=== PATIENT | female | born 1985 | race Caucasian/White ===

== ENCOUNTER 2019-08-21 08:38 | Emergency (ER) | payer OTHER, SELFPAY ==
[2019-08-21 08:46] VITALS: BP 157/91; PULSE 100; RESP 18; TEMP 36.8; O2SAT 98; BMI 32.8
--- NOTE | 2019-08-21 08:57 | ED_ITS ---
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; she has been wearing a wrist splint to help; complains of intermittent tingling to her hand; no fever/chills MD elicited complaint: cough Onset (ago): day(s) Timing: constant Severity: mild Associated symptoms: Reports no associated symptoms; Deny abdominal pain, chest pain, fever(s), lightheadedness, nausea, palpitations, syncope or vomiting Review of Systems Const: Denies: fever or chills Eyes: Denies: change in vision or blurry vision ENMT: Reports: nasal congestion; Denies: ear discharge Card: Denies: chest pain, palpitations, irregular heart rhythm, lightheadedness, syncope or shortness of breath on exertion Resp: Reports: productive cough; Denies: shortness of breath or pain on inspiration GI: Denies: abdominal pain, nausea, vomiting, heartburn/indigestion or diarrhea : Denies: painful urination Musc: Reports: joint pain (R wrist); Denies: neck pain or back pain Skin/Breast: Denies: rash PFSH ED PFSH: Statuses (acute, chronic, etc) shown below reflect problem list status as previously entered and may not be historically accurate Social History Smoking and tobacco status: never smoked Physical Exam Const: COMMON NORMALS: no apparent distress, oriented x3 and alert GENERAL APPEARANCE: cooperative HENMT: COMMON NORMALS: normocephalic, head/scalp atraumatic, external ears normal, EAC's normal and TM's normal bilaterally HEAD & SCALP: normal to inspection, normocephalic and atraumatic FACE & SINUS: normal facial exam NOSE: nasal discharge EXTERNAL EAR: Yes external ears normal EXTERNAL AUDITORY CANAL: EAC's normal TYMPANIC MEMBRANE: TM's normal bilaterally MOUTH: oral and palatal mucosa normal THROAT: posterior oropharynx normal, tonsils normal and uvula midline Eye: COMMON NORMALS: PERRL and EOMs intact bilaterally PUPIL: Yes PERRL Neck/C-Spine: COMMON NORMALS: full ROM, no lymphadenopathy, supple and no meningeal signs Resp: COMMON NORMALS: normal respiratory effort, no retractions, no use of accessory muscles and clear to auscultation bilaterally AUSCULTATION: clear to auscultation bilaterally Cardio: COMMON NORMALS: regular rate and regular rhythm RATE: regular rate RHYTHM: regular rhythm GI: COMMON NORMALS: normal to inspection, nondistended, normoactive bowel sounds, soft to palpation, non-tender, no hepatosplenomegaly and no masses PALPATION: Yes soft and Yes no hepatosplenomegaly Back/Pelvis: COMMON NORMALS: thoracic and lumbar spine normal to inspection Extremity: RIGHT UPPER EXTREMITY: Yes wrist Right wrist: Yes special tests Right wrist special tests: Tinel's test: Positive and Phalen's test: Positive Neuro: COMMON NORMALS: oriented x3 SENSORIUM/ORIENTATION: Yes alert MENINGEAL SIGNS: Yes no meningeal signs Course Vital Signs: Vital signs: Vital Signs Temperature 98.2 F 08/21/19 08:46 Pulse Rate 88 08/21/19 10:45 Respiratory Rate 16 08/21/19 10:45 Blood Pressure 131/92 08/21/19 10:45 Pulse Oximetry 98 08/21/19 10:45 MDM - SOB/Dyspnea Imaging Data^: CXR: Radiologist's impression: [place] [address] XRay Report Signed Patient: Rimma Mariee MR#: [id number] : 1985 Acct:[id number] Age/Sex: 34 / F ADM Date: 08/21/19 Loc: ER Attending Dr: Ordering Physician: Yissel Whiteside Date of Service: 08/21/19 Procedure(s): XR chest 1V portable [id number] Accession Number(s): [id number] cc: Yissel Whiteside PROCEDURE INFORMATION: Exam: XR Chest, 1 View Exam date and time: 08/21/2019 9:08 AM Age: 34 years old Clinical indication: Patient HX: Cough/congestion TECHNIQUE: Imaging protocol: XR of the chest Views: 1 view. COMPARISON: CR Chest 1 [place] [id number] 07/13/2019 7:55 PM FINDINGS: Lungs: Unremarkable. No consolidation. Pleural space: Unremarkable. No pleural effusion. No pneumothorax. Heart/Mediastinum: Unremarkable. No cardiomegaly. Bones/joints: Unremarkable. XR/XR chest 1V portable [id number] IMPRESSION: No acute findings. Dictated By: Bhavik Guerra MD 08/21/1937 Signed By: Bhavik Guerra MD 08/21/19 0939 R wrist: Radiologist's impression: [address] [place] [address] XRay Report Signed Patient: Rimma Mariee MR#: [id number] : 1985 Acct:[id number] Age/Sex: 34 / F ADM Date: 08/21/19 Loc: ER Attending Dr: Ordering Physician: Yissel Whiteside Date of Service: 08/21/19 Procedure(s): XR wrist RT w scaphoid [id number] Accession Number(s): [id number] cc: Yissel Whiteside PROCEDURE INFORMATION: Exam: XR Right Wrist Exam date and time: 08/21/2019 9:22 AM Age: 34 years old Clinical indication: Pain and injury or trauma; Fall; Initial encounter; Blunt trauma (contusions or hematomas; Wrist; Right; Injury date: 2 weeks ago; Additional info: Fall/pain TECHNIQUE: Imaging protocol: XR Right wrist. Views: 3 or more views. COMPARISON: No relevant prior studies available. FINDINGS: Bones/joints: The radial ulnar joint is normal. Carpus is unremarkable. The metacarpals are normal. Visualized portions of the phalanges are normal. No triquetral fracture. Soft tissues: Normal. XR/XR wrist RT w scaphoid [id number] IMPRESSION: Normal wrist. Dictated By: Bhavik Guerra MD 08/21/19 0938 Signed By: Bhavik Guerra MD 08/21/19 0939 Discharge Plan Discharge Patient Disposition: Home, Self-Care Clinical Impression: Acute bronchitis, viral, Carpal tunnel syndrome of right wrist Condition: Stable Prescriptions: No Action trazodone 100 mg Tablet 100 mg PO BEDTIME PRN (Reason: Insomnia) RF: 0 ibuprofen 200 mg Tablet 800 mg PO BID PRN (Reason: Pain) RF: 0 G Tussin AC 10 ml PO BEDTIME RF: 0 Discharge Orders: Discharge Order (Routine); Ordered 08/21/19 Ordered By: Yissel Whiteside Referrals: [facility] [Other] Discharge Diet: Usual diet Discharge Activity: Increase activity as tolerated Activity Restrictions/Additional Instructions: Follow up with primary care in a week for continued symptoms. Continue to wear wrist brace as much as possible as well as the wrist rest for your keyboard. Discharge Date/Time: 08/21/19 10:54 Coding Level of Care Code ED Mental Health Aides Teacher for Tessa Gill
--- NOTE | 2019-08-21 09:07 | XRR_ITS ---
PROCEDURE INFORMATION: Exam: XR Right Wrist Exam date and time: 08/21/2019 9:22 AM Age: 34 years old Clinical indication: Pain and injury or trauma; Fall; Initial encounter; Blunt trauma (contusions or hematomas; Wrist; Right; Injury date: 2 weeks ago; Additional info: Fall/pain TECHNIQUE: Imaging protocol: XR Right wrist. Views: 3 or more views. COMPARISON: No relevant prior studies available. FINDINGS: Bones/joints: The radial ulnar joint is normal. Carpus is unremarkable. The metacarpals are normal. Visualized portions of the phalanges are normal. No triquetral fracture. Soft tissues: Normal. XR/XR wrist RT w scaphoid [id number] IMPRESSION: Normal wrist.
--- NOTE | 2019-08-21 09:07 | XRR_ITS ---
PROCEDURE INFORMATION: Exam: XR Chest, 1 View Exam date and time: 08/21/2019 9:08 AM Age: 34 years old Clinical indication: Patient HX: Cough/congestion TECHNIQUE: Imaging protocol: XR of the chest Views: 1 view. COMPARISON: CR Chest 1 [place] [id number] 07/13/2019 7:55 PM FINDINGS: Lungs: Unremarkable. No consolidation. Pleural space: Unremarkable. No pleural effusion. No pneumothorax. Heart/Mediastinum: Unremarkable. No cardiomegaly. Bones/joints: Unremarkable. XR/XR chest 1V portable [id number] IMPRESSION: No acute findings.
--- NOTE | 2019-08-21 09:12 | PC.NURSE ---
Patient to treatment room at 08:55
--- NOTE | 2019-08-21 10:01 | PC.NURSE ---
Right wrist pain. Patient arrived with velcro wrist splint. Would like it reevaluated
--- NOTE | 2019-08-21 10:13 | PC.NURSE ---
Patient resting in bed with family at bedside. Patient has already left the department for imaging and returned. No needs at this time. Waiting for results at this time. Patient updated.
[2019-08-21 10:45] VITALS: BP 131/92; PULSE 88; RESP 16; O2SAT 98
== END 2019-08-21 10:54 | disposition home or self-care (01) ==
PROVIDERS: Emergency Provider Physician Assistant
DX: J20.8 Acute bronchitis due to other specified organisms (principal); G56.01 Carpal tunnel syndrome, right upper limb
CPT/HCPCS: 71045; 73110; 99281; 99283

== ENCOUNTER 2019-09-07 06:55 | Emergency (ER) | payer OTHER, SELFPAY ==
[2019-09-07 07:06] VITALS: BMI 35.4
--- NOTE | 2019-09-07 07:09 | ED_ITS ---
HPI - Extremity Problem General: Chief complaint: Extremity Problem,Nontraumatic Stated complaint: Left hip pain Time Seen by Provider: 09/07/19 07:07 Source: patient Mode of arrival: ambulatory Limitations: no limitations History of Present Illness: HPI Narrative: Patient comes in today for complaints of left hip pain. Patient appears well. Patient appears in moderate pain. Patient denies any fever or chills. Patient denies any injury. No obvious deformity is noted. Review of Systems General: Reports: 10 or more systems reviewed and unremarkable except in HPI and below Musc: Reports: joint pain (left hip pain) PFSH ED PFSH: Statuses (acute, chronic, etc) shown below reflect problem list status as previously entered and may not be historically accurate Medical History (Updated 09/07/19 @ 07:25 by BEBETO Park) Obesity (Acute) Family History (Updated 09/06/19 @ 16:24 by Maru Gan LPN) Sister Breast cancer Grandmother Breast cancer paternal Colon cancer maternal Thyroid disease maternal Heart disease paternal Hypercholesteremia paternal Mother Colon cancer Father Heart disease Hypercholesteremia Hypertension Grandfather Heart disease paternal Family/Other Hypercholesteremia paternal aunt Social History (Updated 09/01/19 @ 13:50 by Melanie Duke LPN) Smoking and tobacco status: never smoked Alcohol intake: never Lives independently: No Household members: spouse and children Marital status: Current occupational status: employed History of recent travel: No Leisure activites: exercise Current gender identity: Female Physical Exam Const: COMMON NORMALS: no apparent distress and oriented x3 GENERAL APPEARANCE: cooperative HENMT: COMMON NORMALS: normocephalic, external ears normal, EAC's normal, TM's normal bilaterally and external nose normal HEAD & SCALP: normal to inspection and normocephalic FACE & SINUS: normal facial exam NOSE: external nose normal GENERAL EAR: hearing not grossly impaired EXTERNAL EAR: Yes external ears normal EXTERNAL AUDITORY CANAL: EAC's normal TYMPANIC MEMBRANE: TM's normal bilaterally MOUTH: oral and palatal mucosa normal THROAT: posterior oropharynx normal Eye: COMMON NORMALS: PERRL and EOMs intact bilaterally PUPIL: Yes PERRL Neck/C-Spine: COMMON NORMALS: full ROM and no lymphadenopathy Lymph: LYMPHATIC: no lymphedema noted Chest: COMMONS NORMALS: inspection of chest normal and palpation of chest normal Resp: COMMON NORMALS: normal respiratory effort and clear to auscultation bilaterally AUSCULTATION: clear to auscultation bilaterally Cardio: COMMON NORMALS: regular rate and regular rhythm RATE: regular rate RHYTHM: regular rhythm GI: COMMON NORMALS: normal to inspection, nondistended, normoactive bowel sounds and non-tender : COMMON NORMALS: Yes no CVA tenderness BLADDER/KIDNEY EXAM: Yes no CVA t enderness Back/Pelvis: COMMON NORMALS: no CVA tenderness and thoracic and lumbar spine normal to inspection Extremity: COMMON NORMALS: normal to inspection GENERAL: No deformity and No edema LEFT LOWER EXTREMITY: Yes hip joint (tenderness left lateral hip area) Neuro: COMMON NORMALS: oriented x3, moves all extremities and no focal motor deficits Psych: COMMON NORMALS: mental status grossly normal and cooperative Skin: COMMON NORMALS: no rashes or lesions noted GENERAL SKIN EXAM: no rashes or lesions noted Course Vital Signs: Vital signs: Vital Signs Temperature 98.1 F 09/07/19 07:10 Pulse Rate 92 09/07/19 07:10 Respiratory Rate 18 09/07/19 07:10 Blood Pressure 132/74 09/07/19 07:10 Pulse Oximetry 97 09/07/19 07:10 Discharge Plan Discharge Patient Disposition: Home, Self-Care Clinical Impression: Trochanteric bursitis of left hip Condition: Stable Prescriptions: New diclofenac sodium 75 mg tablet,delayed release (DR/EC) 75 mg PO BID Qty: 20 RF: 0 No Action gabapentin 100 mg capsule 100 mg PO BID RF: 0 albuterol sulfate 90 mcg/actuation aerosol powdr breath activated 2 inh INHALATION Q6H PRNRF: 0 Cough syrup with codeine PO RF: 0 doxycycline hyclate 100 mg tablet 100 mg PO BID 7 Days Qty: 14 RF: 0 albuterol sulfate [ProAir HFA] 90 mcg/actuation HFA aerosol inhaler See Rx Instructions INHALATION .COMPLEX PRN (Reason: shortness of breath or wheezing) Qty: 8.5 RF: 0 Discharge Orders: Discharge Order (Routine); Ordered 09/07/19 Ordered By: Nahid Kearney Referrals: [facility] [Other] Abimael Santos, TELEVISION AND RADIO REPAIRER [Primary Care Provider] - Discharge Diet: Usual diet Discharge Activity: Increase activity as tolerated Patient Instructions: Hip Bursitis (ED) Activity Restrictions/Additional Instructions: Activity as tolerated Ice or heat for further pain relief Do not use ibuprofen or naproxen while using diclofenac Drink plenty of water with medications You may use acetaminophen, Tylenlol, for further pain relief Follow-up with primary care in one week as needed Return to ER for high fever or uncontrolled pain Stand Alone Forms: Work/School Release Coding Level of Care Code ED Wood Scaler for Tessa Gill Exam Problem Focused
[2019-09-07 07:10] VITALS: BP 132/74; PULSE 92; RESP 18; TEMP 36.7; O2SAT 97
[2019-09-07] MEDS: ketorolac 30 mg/mL INJ IM (07:59)
== END 2019-09-07 07:50 | disposition home or self-care (01) ==
PROVIDERS: Emergency Provider Nurse Practitioner Family; PCP Registered Nurse
DX: M70.62 Trochanteric bursitis, left hip (principal)
CPT/HCPCS: 96372; 99281; J1885

== ENCOUNTER 2019-09-08 11:19 | Outpatient (CLI) | payer OTHER, SELFPAY ==
--- NOTE | 2019-09-08 11:25 | XR_ITS ---
WS: [id number] RIGHT WRIST: 3 VIEW(S) TECHNIQUE: PA, oblique and lateral. HISTORY: RIGHT WRIST PAIN COMPARISON: 08/21/2019 No acute fracture or dislocation. No joint space abnormality. No soft tissue swelling. XR/XR wrist RT min 3V* [id number] IMPRESSION: Negative RIGHT wrist. No change in appearance of the wrist since 08/21/2019. If patient has persistent and continued pain consider evaluation for an occult fracture by CT.
== END 2019-09-08 11:20 | disposition home or self-care (01) ==
LOC: RAD 11:23
PROVIDERS: PCP Nurse Practitioner Family; Visit Provider Nurse Practitioner Family
DX: M25.531 Pain in right wrist (principal)
CPT/HCPCS: 73110; 82670; 83001

== ENCOUNTER 2019-09-27 09:09 | Outpatient (CLI) | payer OTHER, SELFPAY ==
--- NOTE | 2019-09-27 09:30 | MM_ITS ---
WS: [id number] RIGHT DIGITAL MAMMOGRAPHY WITH CAD CLINICAL INFORMATION: right breast lump COMPARISON: None. TECHNIQUE: 4 views of the right breast were obtained. FINDINGS: Changes of breast reduction surgery. Scattered fibroglandular densities of the right breast. Palpable marker 6 clock position right breast lower inner quadrant. Suggestion of underlying cystic lesion or fat necrosis in this area. Ultrasoun d is pending. In addition there are several fine linear branching calcifications near the palpable marker lower inn er quadrant peripherally. Some of these appear to be in a ductal distribution. Recommend spot Magnifi cation views for further assessment. ULTRASOUND BREAST RIGHT TECHNIQUE: Ultrasound right breast focused area of concern. CLINICAL INFORMATION: right breast lump COMPARISON: None. FINDINGS: Ultrasound right breast at the 6:00 position 4 cm from the nipple in the area of concern. Hypoechoic cystic lesion with some peripheral nodularity along the superior margin of the cyst. This is nonspeci fic and recommend aspiration with ultrasound-guided biopsy considering the nodularity IN ADDITION RECOMMEND SPOT MAGNIFICATION VIEWS OF THE ADJACENT CALCIFICATIONS 6:00 POSITION RIGHT RYLEE AST. MM/[place] [id number] IMPRESSION: BI-RADS: 4A-Suspicious: Low FOLLOW UP: US Guided Biopsy Recommended
--- NOTE | 2019-09-27 10:15 | US_ITS ---
WS: [id number] RIGHT DIGITAL MAMMOGRAPHY WITH CAD CLINICAL INFORMATION: right breast lump COMPARISON: None. TECHNIQUE: 4 views of the right breast were obtained. FINDINGS: Changes of breast reduction surgery. Scattered fibroglandular densities of the right breast. Palpable marker 6 clock position right breast lower inner quadrant. Suggestion of underlying cystic lesion or fat necrosis in this area. Ultrasoun d is pending. In addition there are several fine linear branching calcifications near the palpable marker lower inn er quadrant peripherally. Some of these appear to be in a ductal distribution. Recommend spot Magnifi cation views for further assessment. ULTRASOUND BREAST RIGHT TECHNIQUE: Ultrasound right breast focused area of concern. CLINICAL INFORMATION: right breast lump COMPARISON: None. FINDINGS: Ultrasound right breast at the 6:00 position 4 cm from the nipple in the area of concern. Hypoechoic cystic lesion with some peripheral nodularity along the superior margin of the cyst. This is nonspeci fic and recommend aspiration with ultrasound-guided biopsy considering the nodularity IN ADDITION RECOMMEND SPOT MAGNIFICATION VIEWS OF THE ADJACENT CALCIFICATIONS 6:00 POSITION RIGHT RYLEE AST. US/US breast RT limited* [id number] IMPRESSION: BI-RADS: 4A-Suspicious: Low FOLLOW UP: US Guided Biopsy Recommended
== END 2019-09-27 09:10 | disposition home or self-care (01) ==
LOC: RADSHAW 09:12
PROVIDERS: PCP Nurse Practitioner Family; Visit Provider Obstetrics & Gynecology
DX: N63.10 Unspecified lump in the right breast, unspecified quadrant (principal)
CPT/HCPCS: 76642; 77065

== ENCOUNTER 2019-10-04 08:44 | Outpatient (CLI) | payer OTHER, SELFPAY ==
--- NOTE | 2019-10-04 08:30 | MM_ITS ---
WS: [id number] RIGHT DIGITAL MAMMOGRAPHY WITH CAD CLINICAL INFORMATION: complex cyst right breast HISTORY: Bilateral breast reduction. COMPARISON: September 27, 2019 TECHNIQUE: 5 views of the right breast were obtained. FINDINGS: Scattered fibroglandular densities of the right breast. External markers placed in the area of surgic al scars. Bilateral breast reduction. Linear branching and amorphous calcifications along the surgica l scar site. Considering recent breast reduction these are most likely sequelae of breast reduction w ith evolving fat necrosis and probably benign. Recommend 6 month follow-up for further evaluation. MM/[place] [id number] IMPRESSION: BI-RADS: 3-Probably Benign FOLLOW UP: 6 Month Follow-up
== END 2019-10-04 08:45 | disposition home or self-care (01) ==
LOC: RADSHAW 08:45
PROVIDERS: PCP Nurse Practitioner Family; Visit Provider Obstetrics & Gynecology
DX: N60.01 Solitary cyst of right breast (principal)
CPT/HCPCS: 77065

== ENCOUNTER → 2019-10-05 13:59 | Outpatient (BNVA) | payer OTHER, SELFPAY | PROVIDERS: PCP Nurse Practitioner Family; Visit Provider Nurse Practitioner Psychiatric/Mental Health | DX: F43.12 Post-traumatic stress disorder, chronic (principal); F41.1 Generalized anxiety disorder; F33.1 Major depressive disorder, recurrent, moderate | CPT/HCPCS: 99214 ==

== ENCOUNTER 2019-10-10 12:32 | Outpatient (CLI) | payer OTHER, SELFPAY ==
--- NOTE | 2019-10-10 12:45 | US_ITS ---
WS: [id number] ULTRASOUND-GUIDED RIGHT BREAST ASPIRATION CLINICAL INFORMATION: RT COMPLEX CYST COMPARISON: None. FINDINGS: The procedure including risks, benefits, and complications were discussed with the patient who agreed to proceed. Using sterile technique patient was prepped and draped in the usual sterile fashion. Aft er 1% lidocaine utilizing real-time ultrasound guidance several aspirations are performed of the righ t breast cyst 6:00 position. This significantly decreased in size and nearly resolved. 2-3 cc of thic k gelatinous cystic contents was aspirated and sent for cytology. No immediate complications. Pathology demonstrates benign epithelial cells with proteinaceous debris. No malignant cells. US/[place] [id number] IMPRESSION: 1. Uncomplicated ultrasound-guided right breast cyst aspiration. 2. The pathology demonstrates benign epithelial cells. No evidence of malignan cy. BI-RADS: 2-Benign FOLLOW UP: Age 40
== END 2019-10-10 12:33 | disposition home or self-care (01) ==
LOC: RAD 12:35
PROVIDERS: PCP Nurse Practitioner Family; Visit Provider Obstetrics & Gynecology
DX: N60.01 Solitary cyst of right breast (principal); R92.8 Other abnormal and inconclusive findings on diagnostic imaging of breast
CPT/HCPCS: 19083; 88173; 88305

== ENCOUNTER 2019-10-11 06:35 | Day surgery (SDC) | payer OTHER, SELFPAY ==
[2019-10-03 10:43] VITALS: BMI 36.0
--- NOTE | 2019-10-11 07:38 | ANES.PREANE2 ---
Pre-Anesthetic Assessment Pre-Anesthetic Assessment: Height/Weight: Height 1.6 m Weight 92.351 kg Preop Diagnosis: GERD Proposed Procedure: Operation Date: 10/11/19 08:45 Proposed Procedures p EGD(Not Applicable) - Chalino Harris MD Last Intake: 20:30 Exam: Pre-Anes Outpt Exam: alert, oriented x 3, clear to auscultation bilaterally and regular rate & rhythm Airway: Submandibular: WNL Cervical ROM: WNL MP: 1 Pulmonary: Pulmonary: Asthma GI: GI: GERD Metabolic: Metabolic: Morbid obesity and Thyroid Comments: [place] [facility] [place] Musc/skel: Lower Back Pain Neuropsych: Neuropsych: KISER Anesthetic Plan: ASA status: 3 Anesthesia: MAC PFSH Anesthesia PFSH: Medical History (Updated 10/05/19 @ 17:27 by Yanci Green APRN) Back pain Chronic post-traumatic stress disorder (PTSD) Generalized anxiety disorder GERD (gastroesophageal reflux disease) Knee pain Major depressive disorder, recurrent, moderate Migraines Obesity Surgical History History of cholecystectomy History of hysterectomy (07/21/16) LAVH, bilateral salpingectomy. Diag: Pelvic pain after endometrial ablation. Performed by Dr. James Liriano at [facility] in [place], [place]. History of thyroidectomy, subtotal (11/12/15) Left sided. Performed by Dr. Vale at [facility] in [place], [place] S/P endometrial ablation (11/06/14) Hydrothermal. Diag: Menorrhagia, Dysmenorrhea. Performed by Dr. James Liriano at [facility] in [place], [place] S/P tubal ligation (08/18/11) Performed by Dr. Kapoor at 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
[2019-10-11 07:54] VITALS: BP 155/92; PULSE 99; RESP 20; TEMP 36.4; O2SAT 96
[2019-10-11] MEDS: sodium chloride 0.9% 1,000 ML 30 ML (08:00)
--- NOTE | 2019-10-11 08:32 | W.PM.OPSUD ---
Surgery/Procedure H&P Update DATE OF PROCEDURE: October 11, 2019 DATE H&P PERFORMED: 09/14/19 H&P UPDATE INFORMATION: I have reviewed H&P completed within last 30 days, I have examined patient prior to procedure and No changes to prior documentation PREOP DIAGNOSIS: Acid reflux PRIMARY INDICATION FOR PROCEDURE: The same PLANNED PROCEDURE: Operation Date: 10/11/19 08:45 Proposed Procedures p EGD(Not Applicable) - Chalino Harris MD
[2019-10-11 08:44] VITALS: BP 130/82; PULSE 99; RESP 16; TEMP 36.1; O2SAT 99
--- NOTE | 2019-10-11 08:47 | ANE.PACU2 ---
 Inpatient post-anesthesia follow up: Airway intact: Yes Vital signs: Temperature 97 F Pulse Rate 99 Respiratory Rate 16 Blood Pressure 130/82 Pulse Oximetry 99 Oxygen Delivery Me thod Nasal Cannula Oxygen Flow Rate 3 Fraction of Inspir ed Oxygen Hydration adequate: Yes Nausea and vomiting: Yes (mild nausea noted after procedure) Pain level: 1 Mental status: Baseline
[2019-10-11] MEDS: ondansetron 2 mg/ML SDV 2 mL 4 MG IVP (08:56)
[2019-10-11 08:57] VITALS: BP 118/82; PULSE 87; RESP 18; O2SAT 100
[2019-10-11 09:18] VITALS: BP 119/77; PULSE 91; RESP 18; O2SAT 100
[2019-10-12 06:43] LABS: H. Pylori / CLO Test Negative
== END 2019-10-11 09:18 | disposition home or self-care (01) ==
PROVIDERS: PCP Nurse Practitioner Family; Visit Provider Surgery
PROC: 0DJ08ZZ Inspection of Upper Intestinal Tract, Via Natural or Artificial Opening Endoscopic (ICD-10-PCS; CPT 43235; principal; 2019-10-11 08:45)
DX: K21.9 Gastro-esophageal reflux disease without esophagitis (principal); E66.09 Other obesity due to excess calories; Z68.36 Body mass index [BMI] 36.0-36.9, adult; Z87.11 Personal history of peptic ulcer disease; Z90.49 Acquired absence of other specified parts of digestive tract; Z82.49 Family history of ischemic heart disease and other diseases of the circulatory system; K29.70 Gastritis, unspecified, without bleeding; K29.80 Duodenitis without bleeding; J45.909 Unspecified asthma, uncomplicated
CPT/HCPCS: 12345; 43239; 87077; J2001; J2405; J2704; J7030

== ENCOUNTER → 2019-11-14 08:18 | Outpatient (BNVA) | payer OTHER, SELFPAY | PROVIDERS: PCP Nurse Practitioner Family; Visit Provider Nurse Practitioner Psychiatric/Mental Health | DX: F43.12 Post-traumatic stress disorder, chronic (principal); F41.1 Generalized anxiety disorder; F33.1 Major depressive disorder, recurrent, moderate | CPT/HCPCS: 99213 ==

== ENCOUNTER 2020-01-23 18:22 | Emergency (ER) | payer OTHER, SELFPAY ==
[2020-01-23 18:25] VITALS: BP 150/89; PULSE 103; RESP 18; TEMP 37.1; O2SAT 98; BMI 32.8
[2020-01-23 19:25] LABS: Basophils % 0.4 %; Eosinophils # 0.1 10^3/uL (0.0-0.8); Eosinophils % 0.8 %; Hematocrit 38.1 % (37.0-47.0); Hemoglobin 12.7 g/dL (11.5-15.3); Lymphocytes # 3.5 10^3/uL (0.8-4.8); Lymphocytes % 38.4 %; Mean Corpuscular HGB Conc 33.3 g/dL (30.0-36.0); Mean Corpuscular Hemoglobin 30.7 pg (28.0-34.0); Mean Platelet Volume 8.3 fL (7.4-10.4); Monocytes # 0.6 10^3/uL (0.2-0.9); Monocytes % 6.9 %; Neutrophils # 4.9 10^3/uL (1.8-7.7); Nucleated Red Blood Cells % 0 %; Platelet Count 397 10^3/cmm (130-400); Red Blood Count 4.14 10^6/uL (4.1-5.3); Red Cell Distribution Width 11.9 % (12.1-15.1); White Blood Count 9.2 10^3/uL (4.0-10.0)
[2020-01-23 19:38] LABS: Alanine Aminotransferase 17 U/L (0-33); Albumin Level 4.1 g/dL (3.5-5.2); Alkaline Phosphatase 77 IU/L (35-105); Anion Gap 13.2 (5-19); Aspartate Amino Transferase 18 U/L (0-32); Blood Urea Nitrogen 7 mg/dL (6-20); Calcium 8.6 mg/dL (8.5-10.5); Carbon Dioxide 24 mmol/L (22-29); Chloride 106 mmol/L (98-107); Globulin 2.4 g/dL (1.3-4.6); Glomerular Filtration Rate 95.8 mL/min (90-130); Glucose 92 mg/dL (65-115); Lipase 77 U/L (13-60); Osmolality Calculated 283 mOsm/kg (285-295); Potassium 4.2 mmol/L (3.5-5.1); Sodium 139 mmol/L (136-145); Total Bilirubin 0.2 mg/dL (0.15-1.2); Total Protein 6.5 g/dL (6.6-8.7)
--- NOTE | 2020-01-23 19:40 | CTR_ITS ---
PROCEDURE INFORMATION: Exam: CT Abdomen And Pelvis With Contrast Exam date and time: 01/23/2020 8:12 PM Age: 34 years old Clinical indication: Other: Diarrhea; Abdominal pain; Localized; Lower; Prior surgery; Surgery type: Hysto TECHNIQUE: Imaging protocol: Computed tomography of the abdomen and pelvis with intravenous contrast. Radiation optimization: All CT scans at this facility use at least one of these dose optimization techniques: automated exposure control; mA and/or kV adjustment per patient size (includes targeted exams where dose is matched to clinical indication); or iterative reconstruction. Contrast material: OMNI 300; Contrast volume: 95 ml; Contrast route: IV; COMPARISON: No relevant prior studies available. RADIATION DOSE METRICS: Total DLP: 1440.81 mGy-cm FINDINGS: Lungs: 6 mm noncalcified pulmonary nodule posterior segment right lower lobe. Followup as discussed below. Liver: Normal. No mass. Gallbladder and bile ducts: Surgical clips in the gallbladder fossa consistent with cholecystectomy. Pancreas: Normal. No ductal dilation. Spleen: Normal. No splenomegaly. Adrenals: Normal. No mass. Kidneys and ureters: Multiple left renal simple cysts with the largest measuring > 1.0 cm. Right renal hypodensity measuring < 1.0 cm , too small to further characterize. One or more nonobstructing left renal calyceal stones. Stomach and bowel: Unremarkable. No obstruction. No mucosal thickening. Appendix: Normal appendix. Intraperitoneal space: Unremarkable. No free air. No significant fluid collection. Vasculature: Unremarkable. No abdominal aortic aneurysm. Lymph nodes: Unremarkable. No enlarged lymph nodes. Bladder: Unremarkable as visualized. Reproductive: 2.2 cm right ovarian cyst. Status post hysterectomy. Bones/joints: Unremarkable. No acute fracture. Soft tissues: Metallic jewelry in the region of the umbilicus with or without metallic artifact. CT/CT abdomen pelvis w con* [id number] IMPRESSION: 1. 6 mm noncalcified pulmonary nodule posterior segment right lower lobe. Followup as discussed below. 2. 2.2 cm right ovarian cyst. 3. Status post hysterectomy. If patient does not have known cancer, follow up should be based on clinical information because of the low risk of cancer in this age group. (Jorge et al., Fleischner Society, 2017) COMMENTS: Consistent with the [employer] [employer]'s Incidental Findings Committee white paper (J Am Fernando Radiol 2018): Any incidental renal lesion less than 1.0 cm or classified as too small to characterize, or any incidental cystic renal lesion characterized as simple-appearing, is likely benign. No follow-up imaging is recommended for these lesions per consensus recommendations based on imaging criteria. Radiation Dose CTDIVOL = (mGy): DLP = 1440.81 (mGy-cm)
--- NOTE | 2020-01-23 19:46 | ED_ITS ---
HPI - Abdominal Pain General: Chief Complaint: Abdominal Pain Stated Complaint: abd pain Time Seen by Provider: 01/23/20 19:34 History of Present Illness: HPI narrative: Patient complains about lower abdominal pain last 2 days worsening does have a little bit of urinary frequency denies fever chills nausea or vomiting denies vaginal discharge MD elicited complaint: abdominal pain Pertinent past history: past UTI Onset (ago): day(s) Pain Consistency: constant Location: RLQ and LLQ Severity: moderate Quality: aching Radiation: none Associated Symptoms: Reports no associated symptoms; Denies chills, fever(s), nausea and vomiting Review of Systems Const: Denies: fever(s), chills or body aches Eyes: Denies: change in vision or blurry vision ENMT: Denies: throat pain or nasal congestion Card: Denies: chest pain or dyspnea on exertion Resp: Denies: dyspnea, productive cough or non-productive cough GI: Reports: abdominal pain; Denies: nausea or vomiting Musc: Denies: extremity pain Skin/Breast: Denies: rash Neuro: Denies: headache(s) Psych: Denies: anxiety or depression Denis/Lymph: Denies: easy bruising PFSH ED PFSH: Medical History (Updated 11/14/19 @ 17:10 by Yanci Green APRN) Back pain Chronic post-traumatic stress disorder (PTSD) She reports no problematic nightmares at this time, hypervigilance, avoidance behavior, or intrusive thoughts/flashbacks. Generalized anxiety disorder Chronic overlying anxiety, exacerbated by recent psychosocial stressors and her 's loss of job. GERD (gastroesophageal reflux disease) Knee pain Major depressive disorder, recurrent, moderate Migraines Obesity Surgical History History of cholecystectomy History of hysterectomy (07/21/16) LAVH, bilateral salpingectomy. Diag: Pelvic pain after endometrial ablation. Performed by Dr. James Liriano at [facility] in [place], [place]. History of thyroidectomy, subtotal (11/12/15) Left sided. Performed by Dr. Vale at [facility] in [place], [place] S/P endometrial ablation (11/06/14) Hydrothermal. Diag: Menorrhagia, Dysmenorrhea. Performed by Dr. James Liriano at [facility] in [place], [place] S/P tubal ligation (08/18/11) Performed by Dr. Kapoor at [facility] in [place], [place] Status post breast reduction (~2017) Family History Sister Breast cancer Grandmother Breast cancer paternal Colon cancer maternal Thyroid disease maternal Heart disease paternal Hypercholesteremia paternal Mother Colon cancer Father Heart disease Hypercholesteremia Hypertension Grandfather Heart disease paternal Family/Other Hypercholesteremia paternal aunt Heart disease Paternal aunt Denies family history of Anesthesia complication Bleeding disorder Social History Smoking and tobacco status: never smoked Alcohol intake: current Alcohol intake frequency: holidays/special occasions only Adopted: No Lives independently: No Household members: spouse and children Housing: House Marital status: Highest education level completed: High School Graduate service: No Current occupational status: employed 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[place], [place]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 Current occupational exposures/hazards: No History of recent travel: No Leisure activites: exercise Current gender identity: Female Yamilka/Sikh: Bahai Special yamilka needs: No Agree to transfusion: No Financial difficulty paying for basics: Decline to Answer Physical Exam Const: COMMON NORMALS: no acute distress, average body habitus and patient o riented x3 HENMT: COMMON NORMALS: normocephalic HEAD & SCALP: normal to inspection and normocephalic FACE & SINUS: normal facial exam Eye: COMMON NORMALS: conjunctivae normal GENERAL EYE: appearance normal, both eyes and all related structures CONJUNCTIVA: Yes conjunctivae normal Neck/C-Spine: COMMON NORMALS: no JVD Chest: COMMONS NORMALS: normal inspection of the chest Resp: COMMON NORMALS: normal respiratory effort and clear to auscultation bilaterally AUSCULTATION: clear to auscultation bilaterally Cardio: COMMON NORMALS: no JVD, regular rate and regular rhythm RATE: regular rate RHYTHM: regular rhythm GI: COMMON NORMALS: Normal to inspection, nondistended, normoactive bowel sounds present AUSCULTATION: Yes normoactive bowel sounds PALPATION: Yes Tenderness to palpation present (GI) Details: LLQ and RLQ Extremity: COMMON NORMALS: normal to inspection and full ROM Neuro: COMMON NORMALS: patient oriented x3 Course Vital Signs: Vital signs: Vital Signs Temperature 98.7 F 01/23/20 18:25 Pulse Rate 103 H 01/23/20 18:25 Respiratory Rate 18 01/23/20 18:25 Blood Pressure 150/89 01/23/20 18:25 Pulse Oximetry 98 01/23/20 18:25 MDM - Abdominal Pain Lab Data: Labs: Lab Results 01/23/20 01/23/20 Range/Units 19:10 19:10 WBC 9.2 (4.0-10.0) 10^3/ uL RBC 4.14 (4.1-5.3) 10^6/u L Hgb 12.7 (11.5-15.3) g/dL Hct 38.1 (37.0-47.0) % MCV 92.0 (81-99) fL MCH 30.7 (28.0-34.0) pg MCHC 33.3 (30.0-36.0) g/dL RDW 11.9 L (12.1-15.1) % Plt Count 397 (130-400) 10^3/c mm MPV 8.3 (7.4-10.4) fL Neut % (Auto) 53.0 % Lymph % (Auto) 38.4 % [place] % (Auto) 6.9 % Eos % (Auto) 0.8 % Baso % (Auto) 0.4 % Neut # (Auto) 4.9 (1.8-7.7) 10^3/u L Lymph # (Auto) 3.5 (0.8-4.8) 10^3/u L [place] # (Auto) 0.6 (0.2-0.9) 10^3/u L Eos # (Auto) 0.1 (0.0-0.8) 10^3/u L Baso # (Auto) 0.0 (0.0-0.1) 10^3/u L Nucleated RBC % (a uto) 0 % Nucleated RBCs # 0.0 /100WBC Sodium 139 (136-145) mmol/L Potassium 4.2 (3.5-5.1) mmol/L Chloride 106 (98-107) mmol/L Carbon Dioxide 24 (22-29) mmol/L Anion Gap 13.2 (5-19) BUN 7 (6-20) mg/dL Creatinine 0.7 (0.5-0.9) mg/dL GFR Calculation 95.8 (90-130) mL/min Glucose 92 (65-115) mg/dL Calculated Osmolal ity 283 L (285-295) mOsm/k g Calcium 8.6 (8.5-10.5) mg/dL Total Bilirubin 0.2 (0.15-1.2) mg/dL AST 18 (0-32) U/L ALT 17 (0-33) U/L Alkaline Phosphata se 77 (35-105) IU/L Total Protein 6.5 L (6.6-8.7) g/dL Albumin 4.1 (3.5-5.2) g/dL Globulin 2.4 (1.3-4.6) g/dL Lipase 77 H (13-60) U/L Discharge Plan Discharge Prescriptions: No Action hydroxyzine pamoate 50 mg capsule 50 mg PO BID PRN (Reason: anxiety) Qty: 60 RF: 1 sertraline 100 mg tablet 200 mg PO DAILY Qty: 60 RF: 1 eszopiclone [Lunesta] 1 mg tablet 1 mg PO .qhs PRN (Reason: insomnia) Qty: 30 RF: 0 phentermine 37.5 mg Capsule 37.5 mg PO DAILY RF: 0 Protonix 40 mg tablet,delayed release (DR/EC) 40 mg PO DAILY 30 Days Qty: 30 RF: 2 Coding Level of Care Code ED Equipment Cleaner And Tester for Tessa Gill
[2020-01-23 19:50] LABS: HCG, Serum Qual Negative (Negative)
[2020-01-23] MEDS: iohexol 300 mg/mL 100 mL Btl IV (20:50)
[2020-01-23 20:57] VITALS: BP 148/97; PULSE 99; RESP 18; O2SAT 96
[2020-01-23 21:20] VITALS: BP 145/97; PULSE 97; RESP 16; O2SAT 97
[2020-01-23 22:08] LABS: Bacteria Urine 1+; Bilirubin Urine Neg (NEGATIVE); Blood Urine Neg (Negative); Glucose Urine UA Norm (Normal); Ketones Urine Negative (Negative); Leukocyte Esterase Urine Negative (Negative); Nitrate Urine Negative (Negative); Protein Urine Neg (Negative); RBC Urine RARE /hpf (0-2); Specific Gravity, Urine 1.015 (1.005-1.030); Squamous Epithelial Cell Urine 0-4 (0-5); Urine Appearance Hazy (CLEAR); Urine Color Yellow (Yellow); Urobilinogen Urine Norm (Negative); WBC Urine 0-4 /hpf (0-5); pH Urine 6 (5-7)
[2020-01-23] MEDS: ketorolac 10 mg Tablet PO (22:10)
[2020-01-23 22:11] VITALS: BP 141/97; PULSE 105; RESP 16; O2SAT 98
== END 2020-01-23 22:17 | disposition home or self-care (01) ==
PROVIDERS: Emergency Medicine; Emergency Provider Nurse Practitioner Family; PCP Nurse Practitioner Family
DX: R10.9 Unspecified abdominal pain (principal)
CPT/HCPCS: 12345; 36415; 74177; 80053; 81001; 83690; 84703; 85025; 99282; 99283; A9270; Q9967

== ENCOUNTER 2020-02-18 19:31 | Emergency (ER) | payer OTHER, SELFPAY ==
[2020-02-18] VITALS (7 sets, daily range): BP systolic 134–149; BP diastolic 84–98; PULSE 102–128; RESP 14–18; TEMP 37.3; O2SAT 96–110; BMI 31.7
--- NOTE | 2020-02-18 20:06 | ECG_ITS ---
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 Measurements Intervals [place] Rate: 117 P: 22 DC: 144 QRS: 39 QRSD: 87 T: 44 QT: 326 QTc: 456 Interpretive Statements SINUS TACHYCARDIA ABNORMAL RHYTHM ECG Compared to ECG 04/07/2018 18:17:10 No significant changes Electronically Signed On 02-19-2020 21:38:04 CDT by Rolando Bartlett M.D. [email or web address]
[2020-02-18] MEDS: sodium chloride 0.9% 1,000 ML 999 ML IV (20:43)
[2020-02-18 21:02] LABS: Basophils # 0.1 10^3/uL (0.0-0.1); Basophils % 0.4 %; Eosinophils # 0.1 10^3/uL (0.0-0.8); Eosinophils % 0.4 %; Hematocrit 38.8 % (37.0-47.0); Lymphocytes # 1.7 10^3/uL (0.8-4.8); Lymphocytes % 14.9 %; Mean Corpuscular HGB Conc 33.5 g/dL (30.0-36.0); Mean Corpuscular Hemoglobin 30.7 pg (28.0-34.0); Mean Corpuscular Volume 91.5 fL (81-99); Mean Platelet Volume 8.1 fL (7.4-10.4); Monocytes # 0.8 10^3/uL (0.2-0.9); Monocytes % 6.6 %; Neutrophils # 8.9 10^3/uL (1.8-7.7); Neutrophils % 77.4 %; Nucleated Red Blood Cells % 0 %; Platelet Count 389 10^3/cmm (130-400); Red Blood Count 4.24 10^6/uL (4.1-5.3); Red Cell Distribution Width 12.5 % (12.1-15.1); White Blood Count 11.5 10^3/uL (4.0-10.0)
--- NOTE | 2020-02-18 21:04 | CTR_ITS ---
PROCEDURE INFORMATION: Exam: CT Abdomen And Pelvis With Contrast Exam date and time: 02/18/2020 9:15 PM Age: 34 years old Clinical indication: Abdominal pain; Generalized; Prior surgery; Surgery date: 6+ months; Surgery type: Hyst; Patient HX: C/O abd pain, fever, nausea, diarrhea; Additional info: Pain, diarrhea TECHNIQUE: Imaging protocol: Computed tomography of the abdomen and pelvis with intravenous contrast. Radiation optimization: All CT scans at this facility use at least one of these dose optimization techniques: automated exposure control; mA and/or kV adjustment per patient size (includes targeted exams where dose is matched to clinical indication); or iterative reconstruction. Contrast material: OMNI 300; Contrast volume: 95 ml; Contrast route: INTRAVENOUS (IV); COMPARISON: CT abdomen pelvis w con* [id number] 01/23/2020 8:40 PM RADIATION DOSE METRICS: Total DLP (mGy-cm): 1362.95 FINDINGS: Lungs: There is a noncalcified pulmonary nodule in the right lower lobe visible on axial series 2, image 7 measuring 7 mm, unchanged compared to the 01/23/2020. Liver: The liver is normal. Gallbladder and bile ducts: The gallbladder is absent. There is no intrahepatic or extrahepatic bile duct dilation. Pancreas: The pancreas is unremarkable. Spleen: The spleen is unremarkable. Adrenals: The adrenal glands are unremarkable. Kidneys and ureters: There is a nonobstructive stone in the left kidney. There is no hydronephrosis or ureteral dilation. The right kidney and ureter are unremarkable. Stomach and bowel: There is fluid distention and mild mucosal thickening with subtle perienteric edema involving a long segment of the distal ileum including the terminal ileum. There is no sign of obstruction. The small bowel is otherwise normal. The stomach is normal. The colon is unremarkable. Appendix: The appendix is normal. Intraperitoneal space: There is no free air or significant intraperitoneal free fluid. Vasculature: The aorta is unremarkable. There is no aneurysm. The portal, splenic and superior mesenteric veins are patent. Lymph nodes: Unremarkable. No enlarged lymph nodes. Bladder: The urinary bladder is unremarkable. Reproductive: The uterus is absent. There is no adnexal mass or large cyst. Bones/joints: Unremarkable. No acute fracture. Soft tissues: The abdominal wall is intact. CT/CT abdomen pelvis w con* [id number] IMPRESSION: 1. Distal ileal enteritis. Inflammatory bowel disease and infection should be considered. 2. Nonobstructive left renal stone. 3. Right lower lobe pulmonary nodule. If patient does not have known cancer, follow up should be based on clinical information because of the low risk of cancer in this age group. (Jorge et al., Fleischner Society, 2017) Radiation Dose CTDIVOL = (mGy): DLP = 1362.95 (mGy-cm)
--- NOTE | 2020-02-18 21:11 | W.ED.GENADLT ---
HPI - General Adult General: Chief complaint: General Medical Stated complaint: sob Time Seen by Provider: 02/18/20 19:59 History of Present Illness: HPI narrative: 34-year-old female presents with a day of intense epigastric/mid belly abdominal pain and several episodes of watery diarrhea. She had a fever at home of 100.8. Pain is improved now, but still having diarrhea. No blood. She has had a cholecystectomy. She presents with a heart rate of 130. Onset (ago): hour(s) Location: abdomen Radiation: non-radiation Severity: severe (Improved now) Quality: stabbing Pain Consistency: constant Associated symptoms: Reports fevers/chills and nausea; Deny chest pain, confusion, cough, dyspnea, headache(s), rash or vomiting Review of Systems Const: Reports: fever(s); Denies: chills Eyes: Denies: change in vision or blurry vision ENMT: Denies: odynophagia, swelling of lips/tongue, bleeding gums, dental pain, change in hearing, epistaxis, post nasal drip or sinus pain Card: Denies: chest pain Resp: Denies: dyspnea GI: Reports: nausea; Denies: vomiting : Denies: dysuria or hematuria Musc: Denies: neck pain, back pain, joint redness or joint warmth Skin/Breast: Denies: rash Neuro: Denies: headache(s), dizziness, vertigo, confusion or seizure-like activity Psych: Denies: anxiety [facility] ED PFSH: Medical History (Updated 02/19/20 @ 00:43 by Fernando Penny DO) Back pain Chronic post-traumatic stress disorder (PTSD) She reports no problematic nightmares at this time, hypervigilance, avoidance behavior, or intrusive thoughts/flashbacks. Generalized anxiety disorder Chronic overlying anxiety, exacerbated by recent psychosocial stressors and her 's loss of job. GERD (gastroesophageal reflux disease) Knee pain Major depressive disorder, recurrent, moderate Migraines Obesity Surgical History History of cholecystectomy History of hysterectomy (07/21/16) LAVH, bilateral salpingectomy. Diag: Pelvic pain after endometrial ablation. Performed by Dr. James Liriano at [facility] in [place], [place]. History of thyroidectomy, subtotal (11/12/15) Left sided. Performed by Dr. Vale at [facility] in [place], [place] S/P endometrial ablation (11/06/14) Hydrothermal. Diag: Menorrhagia, Dysmenorrhea. Performed by Dr. James Liriano at [facility] in [place], [place] S/P tubal ligation (08/18/11) Performed by Dr. Kapoor at [facility] in [place], [place] Status post breast reduction (~2016) Family History Sister Breast cancer Grandmother Breast cancer paternal Colon cancer maternal Thyroid disease maternal Heart disease paternal Hypercholesteremia paternal Mother Colon cancer Father Heart disease Hypercholesteremia Hypertension Grandfather Heart disease paternal Family/Other Hypercholesteremia paternal aunt Heart disease Paternal aunt Denies family history of Anesthesia complication Bleeding disorder Social History Smoking and tobacco status: never smoked Alcohol intake: current Alcohol intake frequency: holidays/special occasions only Adopted: No Lives independently: No Household members: spouse and children Housing: House Marital status: Highest education level completed: High School Graduate service: No Current occupational status: employed 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 Current occupational exposures/hazards: No History of recent travel: No Leisure activites: exercise Current gender identity: Female Yamilka/Yazidism: Anabaptism Special yamilka needs: No Agree to transfusion: No Financial difficulty paying for basics: Decline to Answer Physical Exam Const: GENERAL APPEARANCE: well developed ORIENTATION/CONSCIOUSNESS: Yes oriented to person, Yes oriented to place and Yes oriented to time HENMT: COMMON NORMALS: normocephalic, external ears normal and Normal external nose present HEAD & SCALP: normocephalic FACE & SINUS: normal facial exam NOSE: Normal external nose present and No nasal discharge present EXTERNAL EAR: Yes external ears normal MOUTH: tongue normal Eye: COMMON NORMALS: Equal, round and reactive pupils present, EOMs intact bilaterally and conjunctivae normal EYELID: eyelids normal CONJUNCTIVA: Yes conjunctivae normal PUPIL: Yes Equal, round and reactive pupils present Neck/C-Spine: GENERAL: No tracheal deviation Chest: COMMONS NORMALS: normal inspection of the chest CHEST: No tenderness Resp: COMMON NORMALS: clear to auscultation bilaterally EFFORT & INSPECTION: No tachypneic, No respiratory distress, No retractions, No uses accessory muscles and No tracheal deviation AUSCULTATION: clear to auscultation bilaterally, no rhonchi, no wheezes and lung sounds not diminished Cardio: COMMON NORMALS: regular rate and regular rhythm RATE: regular rate RHYTHM: regular rhythm HEART SOUNDS: no murmurs PERIPHERAL PULSES: radial pulses present GI: INSPECTION: No abdominal distension AUSCULTATION: No Hyperactive bowel sounds present and No Hypoactive bowel sounds present PALPATION: No Guarding due to palpation present (GI) and No Rigid due to palpation PERCUSSION: no dullness to percussion and no tympanic to percussion Neuro: SENSORIUM/ORIENTATION: Yes oriented to person, Yes oriented to place and Yes oriented to time Psych: COMMON NORMALS: mental status grossly normal Skin: COMMON NORMALS: no rashes or lesions noted GENERAL SKIN EXAM: no rashes or lesions noted Course Vital Signs: Vital signs: Vital Signs Temperature 99.1 F 02/18/20 19:43 Pulse Rate 107 H 02/19/20 00:13 Respiratory Rate 15 02/19/20 00:13 Blood Pressure 130/85 02/19/20 00:13 Pulse Oximetry 94 02/19/20 00:13 MDM - General Adult MDM Narrative: Medical decision making narrative: 34-year-old female with a history of sudden onset belly pain followed by diarrhea. Her white blood cell count is 11.5. She had a temperature at home. Her ileum distally shows a focal area of wall thickening and edema suggestive of ileitis. She will be treated with for this here. She is not vomiting. She will go home with antibiotics, pain and nausea medication Lab Data: Labs: Lab Results 02/18/20 02/18/20 02/18/20 Range/Units 20:31 20:53 20:53 WBC 11.5 H (4.0-10.0) 10^3/ uL RBC 4.24 (4.1-5.3) 10^6/u L Hgb 13.0 (11.5-15.3) g/dL Hct 38.8 (37.0-47.0) % MCV 91.5 (81-99) fL MCH 30.7 (28.0-34.0) pg MCHC 33.5 (30.0-36.0) g/dL RDW 12.5 (12.1-15.1) % Plt Count 389 (130-400) 10^3/c mm MPV 8.1 (7.4-10.4) fL Neut % (Auto) 77.4 % Lymph % (Auto) 14.9 % [place] % (Auto) 6.6 % Eos % (Auto) 0.4 % Baso % (Auto) 0.4 % Neut # (Auto) 8.9 H (1.8-7.7) 10^3/u L Lymph # (Auto) 1.7 (0.8-4.8) 10^3/u L [place] # (Auto) 0.8 (0.2-0.9) 10^3/u L Eos # (Auto) 0.1 (0.0-0.8) 10^3/u L Baso # (Auto) 0.1 (0.0-0.1) 10^3/u L Nucleated RBC % (a uto) 0 % Nucleated RBCs # 0.0 /100WBC Sodium 139 (136-145) mmol/L Potassium 3.5 (3.5-5.1) mmol/L Chloride 104 (98-107) mmol/L Carbon Dioxide 23 (22-29) mmol/L Anion Gap 15.5 (5-19) BUN 9 (6-20) mg/dL Creatinine 0.7 (0.5-0.9) mg/dL GFR Calculation 95.8 (90-130) mL/min Glucose 105 (65-115) mg/dL Calculated Osmolal ity 284 L (285-295) mOsm/k g Lactate (0.5-2.2) mmol/L Calcium 8.6 (8.5-10.5) mg/dL Total Bilirubin 0.4 (0.15-1.2) mg/dL AST 16 (0-32) U/L ALT 16 (0-33) U/L Alkaline Phosphata se 77 (35-105) IU/L C-Reactive Protein 22.3 H (0.0-4.9) mg/L Total Protein 6.5 L (6.6-8.7) g/dL Albumin 4.0 (3.5-5.2) g/dL Globulin 2.5 (1.3-4.6) g/dL Lipase 33 (13-60) U/L Urine Color Yellow (Yellow) Urine Appearance Hazy A (CLEAR) Urine pH 5 (5-7) Ur Specific Gravit y 1.020 (1.005-1.030) Urine Protein Neg (Negative) Urine Glucose (UA) Norm (Normal) Urine Ketones 1+ H (Negative) Urine Blood Neg (Negative) Urine Nitrate Negative (Negative) Urine Bilirubin 1+ H (NEGATIVE) Urine Urobilinogen Norm (Negative) mg/dL Ur Leukocyte Bonnie ase Negative (Negative) Urine RBC 0-4 H (0-2) /hpf Urine WBC 0-4 H (0-5) /hpf Ur Squamous Epith Cells 15-25 H (0-5) Amorphous Sediment Not Reportable Urine Bacteria 2+ H (NONE) Urine Mucus 1+ 07/05/20 Range/Units 20:53 WBC (4.0-10.0) 10^3/ uL RBC (4.1-5.3) 10^6/u L Hgb (11.5-15.3) g/dL Hct (37.0-47.0) % MCV (81-99) fL MCH (28.0-34.0) pg MCHC (30.0-36.0) g/dL RDW (12.1-15.1) % Plt Count (130-400) 10^3/c mm MPV (7.4-10.4) fL Neut % (Auto) % Lymph % (Auto) % [place] % (Auto) % Eos % (Auto) % Baso % (Auto) % Neut # (Auto) (1.8-7.7) 10^3/u L Lymph # (Auto) (0.8-4.8) 10^3/u L [place] # (Auto) (0.2-0.9) 10^3/u L Eos # (Auto) (0.0-0.8) 10^3/u L Baso # (Auto) (0.0-0.1) 10^3/u L Nucleated RBC % (a uto) % Nucleated RBCs # /100WBC Sodium (136-145) mmol/L Potassium (3.5-5.1) mmol/L Chloride (98-107) mmol/L Carbon Dioxide (22-29) mmol/L Anion Gap (5-19) BUN (6-20) mg/dL Creatinine (0.5-0.9) mg/dL GFR Calculation (90-130) mL/min Glucose (65-115) mg/dL Calculated Osmolal ity (285-295) mOsm/k g Lactate 2.0 (0.5-2.2) mmol/L Calcium (8.5-10.5) mg/dL Total Bilirubin (0.15-1.2) mg/dL AST (0-32) U/L ALT (0-33) U/L Alkaline Phosphata se (35-105) IU/L C-Reactive Protein (0.0-4.9) mg/L Total Protein (6.6-8.7) g/dL Albumin (3.5-5.2) g/dL Globulin (1.3-4.6) g/dL Lipase (13-60) U/L Urine Color (Yellow) Urine Appearance (CLEAR) Urine pH (5-7) Ur Specific Gravit y (1.005-1.030) Urine Protein (Negative) Urine Glucose (UA) (Normal) Urine Ketones (Negative) Urine Blood (Negative) Urine Nitrate (Negative) Urine Bilirubin (NEGATIVE) Urine Urobilinogen (Negative) mg/dL Ur Leukocyte Bonnie ase (Negative) Urine RBC (0-2) /hpf Urine WBC (0-5) /hpf Ur Squamous Epith Cells (0-5) Amorphous Sediment Urine Bacteria (NONE) Urine Mucus Discharge Plan Discharge Patient Disposition: Home, Self-Care Clinical Impression: Ileitis, terminal Qualifiers: Digestive disease complication type: without complication Qualified Code(s): K50.00 - Crohn's disease of small intestine without complications Condition: Stable Prescriptions: New Flagyl 500 mg tablet 250 mg PO Q8H Qty: 30 RF: 0 Cipro 500 mg tablet 500 mg PO Q12H Qty: 20 RF: 0 Zofran 4 mg tablet 4 mg PO Q6H PRN (Reason: nausea and vomiting) Qty: 10 RF: 0 [place] 5-325 mg tablet 1 tab PO Q6H PRN (Reason: pain) Qty: 10 RF: 0 No Action eszopiclone [Lunesta] 1 mg tablet 1 mg PO .qhs PRN (Reason: insomnia) Qty: 30 RF: 0 trazodone 50 mg Tablet 50 mg PO BEDTIME RF: 0 Azo Urinary Pain Relief 95 mg Tablet 95 mg PO TID PRN (Reason: UNKNOWN) RF: 0 Discharge Orders: Discharge Order (Routine); Ordered 02/19/20 Ordered By: Fernando Penny Referrals: Lacey Mueller MD [Primary Care Provider] - 4-7 days Discharge Diet: Advance as tolerated and Clear Liquid Discharge Activity: Increase activity as tolerated Patient Instructions: Infectious Colitis (ED) Activity Restrictions/Additional Instructions: Return for continued fever greater than 100 despite 3-4 doses of attic, vomiting liquids or medications, worsening pain, blood with your stool, other concerning symptoms. Coding Level of Care Code ED Diver Assistant for 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
[2020-02-18 21:21] LABS: Alanine Aminotransferase 16 U/L (0-33); Alkaline Phosphatase 77 IU/L (35-105); Anion Gap 15.5 (5-19); Aspartate Amino Transferase 16 U/L (0-32); Blood Urea Nitrogen 9 mg/dL (6-20); Calcium 8.6 mg/dL (8.5-10.5); Carbon Dioxide 23 mmol/L (22-29); Chloride 104 mmol/L (98-107); Globulin 2.5 g/dL (1.3-4.6); Glomerular Filtration Rate 95.8 mL/min (90-130); Glucose 105 mg/dL (65-115); Lipase 33 U/L (13-60); Osmolality Calculated 284 mOsm/kg (285-295); Potassium 3.5 mmol/L (3.5-5.1); Sodium 139 mmol/L (136-145); Total Bilirubin 0.4 mg/dL (0.15-1.2); Total Protein 6.5 g/dL (6.6-8.7)
[2020-02-18 21:24] LABS: Glucose Urine UA Norm (Normal); Ketones Urine 1+ (Negative); Protein Urine Neg (Negative); Urine Appearance Hazy (CLEAR); Urine Color Yellow (Yellow); pH Urine 5 (5-7)
[2020-02-18] MEDS: iohexol 300 mg/mL 100 mL Btl IV (21:24)
[2020-02-18 21:25] LABS: Add Urine Microscopic? YES; Bilirubin Urine 1+ (NEGATIVE); Blood Urine Neg (Negative); Leukocyte Esterase Urine Negative (Negative); Nitrate Urine Negative (Negative); Urobilinogen Urine Norm (Negative)
[2020-02-18 21:26] LABS: RBC Urine 0-4 /hpf (0-2); WBC Urine 0-4 /hpf (0-5)
[2020-02-18 21:27] LABS: Add Urine Culture? No; Bacteria Urine 2+; Mucus Urine 1+; Squamous Epithelial Cell Urine 15-25 (0-5)
[2020-02-18 21:48] LABS: C Reactive Protein 22.3 mg/L (0.0-4.9)
[2020-02-18] MEDS: HYDROmorphone 1 mg/mL INJ 1 mL IVP (23:17)
[2020-02-18] MEDS: ondansetron 2 mg/ML SDV 2 mL 4 MG IVP (23:17)
[2020-02-19 00:13] VITALS: BP 130/85; PULSE 107; RESP 15; O2SAT 94
[2020-02-19 01:08] VITALS: BP 138/83; PULSE 101; RESP 16; O2SAT 94
[2020-02-19] MEDS: metroNIDAZOLE 500 MG Tablet PO (01:10)
[2020-02-19] MEDS: ciprofloxacin 500 mg Tablet PO (01:10)
[2020-02-19 01:11] VITALS: BP 141/82; PULSE 110; RESP 15; O2SAT 97
== END 2020-02-19 01:16 | disposition home or self-care (01) ==
PROVIDERS: Emergency Provider Emergency Medicine; PCP Internal Medicine
DX: K50.00 Crohn's disease of small intestine without complications (principal)
CPT/HCPCS: 12345; 74177; 80053; 81001; 81003; 83605; 83690; 85025; 86140; 87040; 93005; 96360; 96361; 96374; 96375; 99284; J1170; J2405; J7030; Q9967

== ENCOUNTER → 2020-03-22 10:51 | Outpatient (BNVA) | payer OTHER, SELFPAY | PROVIDERS: PCP Internal Medicine; Visit Provider Internal Medicine | DX: E04.9 Nontoxic goiter, unspecified (principal); R53.83 Other fatigue; G47.00 Insomnia, unspecified; E66.9 Obesity, unspecified; Z90.09 Acquired absence of other part of head and neck | CPT/HCPCS: 99203 ==

== ENCOUNTER 2020-03-22 12:14 | Outpatient (CLI) | payer OTHER, SELFPAY ==
[2020-03-22 13:00] LABS: Free T4 Free Thyroxine 1.34 ng/dL (0.82-1.77); Thyroid Stimulating Hormone 1.87 uIU/mL (0.27-4.20)
[2020-03-25 14:55] LABS: Thyroglobulin AB 1 IU/mL (< or = 1)
== END 2020-03-22 12:15 | disposition home or self-care (01) ==
LOC: LAB 12:16
PROVIDERS: PCP Internal Medicine; Visit Provider Internal Medicine
DX: E04.9 Nontoxic goiter, unspecified (principal); R53.83 Other fatigue; Z90.09 Acquired absence of other part of head and neck
CPT/HCPCS: 36415; 84439; 84443; 86376; 86800

== ENCOUNTER → 2020-03-28 11:40 | Outpatient (BNVA) | payer OTHER, SELFPAY | PROVIDERS: PCP Internal Medicine; Visit Provider Nurse Practitioner | DX: K52.9 Noninfective gastroenteritis and colitis, unspecified (principal) | CPT/HCPCS: 81000 ==

== ENCOUNTER 2020-04-04 09:02 | Emergency (ER) | payer OTHER, SELFPAY ==
[2020-04-04] VITALS (7 sets, daily range): BP systolic 122–150; BP diastolic 80–92; PULSE 94–113; RESP 16–18; TEMP 36.8; O2SAT 96–99; BMI 31.7
--- NOTE | 2020-04-04 09:18 | CT_ITS ---
WS: [id number] CT ABDOMEN AND PELVIS NONCONTRAST HISTORY: left flank pain, hx of stone TECHNIQUE: Imaging performed through the abdomen and pelvis. Coronal and sagittal reformats are submi tted. All CT scans at [facility] use at least one of these dose optimization techniques: automated exposure control; mA and/or kV adjustment per patient size (includes targeted exams where d ose is matched to clinical indication); or iterative reconstruction. DLP: 1654.86 mGy.cm COMPARISON: 02/18/2020, 03/27/2018 Lower thorax: Subpleural 5 mm nodule at the RIGHT lung base. No change since 02/18/2020. Slightly incre ased in size since 11/23/2017. Liver: Mild diffuse hepatic steatosis. Liver is also slightly enlarged. No bile duct dilatation. Gallbladder: Prior cholecystectomy. Pancreas: Normal size and attenuation. Normal pancreatic duct. No pancreatitis or mass. Spleen: Normal. Adrenal glands: Normal. No mass. Right kidney: Normal size with no stones, masses or atrophy. Left kidney: Normal size kidney. Cortical calcification measuring 8 mm mid kidney. No obstruction. Aorta: Normal abdominal aorta, no aneurysm or atherosclerosis. No free fluid, intraperitoneal air or significant lymphadenopathy. GI tract: Normal appendix. No GI tract obstruction. No significant diverticular disease. No wall thic kening or enteritis. Abdominal wall: Abdominal wall fat-containing hernia. Pelvis: Normal. Osseous structures: Unremarkable. CT/CT kidney stone [id number] IMPRESSION: 1. No hydronephrosis or renal obstruction. 2. Nonobstructing 8 mm LEFT renal calcification. 3. Status post cholecystectomy. 4. No acute abdominal or pelvic abnormality. 5. Due to the slight increase in size of the RIGHT lower lobe subpleural nodul e recommend [address] follow-up.
[2020-04-04 09:45] LABS: Basophils # 0.1 10^3/uL (0.0-0.1); Basophils % 0.7 %; Eosinophils # 0.1 10^3/uL (0.0-0.8); Eosinophils % 1.1 %; Hematocrit 38.8 % (37.0-47.0); Hemoglobin 12.9 g/dL (11.5-15.3); Lymphocytes # 2.4 10^3/uL (0.8-4.8); Lymphocytes % 33.6 %; Mean Corpuscular HGB Conc 33.2 g/dL (30.0-36.0); Mean Corpuscular Hemoglobin 29.9 pg (28.0-34.0); Mean Platelet Volume 8.2 fL (7.4-10.4); Monocytes # 0.4 10^3/uL (0.2-0.9); Monocytes % 6.1 %; Neutrophils # 4.09 10^3/uL (1.8-7.7); Neutrophils % 57.9 %; Nucleated Red Blood Cells % 0 %; Platelet Count 438 10^3/cmm (130-400); Red Blood Count 4.31 10^6/uL (4.1-5.3); Red Cell Distribution Width 11.8 % (12.1-15.1); White Blood Count 7.1 10^3/uL (4.0-10.0)
[2020-04-04] MEDS: sodium chloride 0.9% 1,000 ML 999 ML IV (09:46)
[2020-04-04] MEDS: ondansetron 2 mg/ML SDV 2 mL 4 MG IVP (09:47)
[2020-04-04] MEDS: ketorolac 30 mg/mL INJ IVP (09:51)
[2020-04-04 09:53] LABS: Add Urine Microscopic? YES; Bilirubin Urine Neg (NEGATIVE); Blood Urine Neg (Negative); Glucose Urine UA Norm (Normal); Ketones Urine Negative (Negative); Leukocyte Esterase Urine Negative (Negative); Nitrate Urine Negative (Negative); Protein Urine Neg (Negative); RBC Urine 0-4 /hpf (0-2); Specific Gravity, Urine 1.015 (1.005-1.030); Urine Appearance Hazy (CLEAR); Urine Color Yellow (Yellow); Urobilinogen Urine Neg (Negative); WBC Urine 0-4 /hpf (0-5); pH Urine 9 (5-7)
[2020-04-04 09:54] LABS: Add Urine Culture? No; Bacteria Urine 2+; Mucus Urine 1+; Squamous Epithelial Cell Urine 15-25 (0-5)
[2020-04-04 10:03] LABS: Alanine Aminotransferase 18 U/L (0-33); Alkaline Phosphatase 85 IU/L (35-105); Anion Gap 12.9 (5-19); Aspartate Amino Transferase 14 U/L (0-32); Blood Urea Nitrogen 8 mg/dL (6-20); Calcium 8.3 mg/dL (8.5-10.5); Carbon Dioxide 23 mmol/L (22-29); Chloride 106 mmol/L (98-107); Glomerular Filtration Rate 141.2 mL/min (90-130); Glucose 129 mg/dL (65-115); Lipase 71 U/L (13-60); Osmolality Calculated 284 mOsm/kg (285-295); Potassium 3.9 mmol/L (3.5-5.1); Sodium 138 mmol/L (136-145); Total Bilirubin 0.2 mg/dL (0.15-1.2)
--- NOTE | 2020-04-04 10:17 | ED_ITS ---
HPI - Female Genitourinary General: Chief complaint: Urogenital-Female Stated complaint: POSS KIDNEY STONE Time Seen by Provider: 04/04/20 09:06 History of Present Illness: HPI Narrative: Patient complains about left flank pain for the last 2 to 3 days was vomiting yesterday has been nauseated pain constant intermittent denies any hematuria MD elicited complaint: flank pain Pertinent past history: other (Was told that she had a stone about 1 mm nonobstructing on her last CT which was a few months ago) Severity: mild Female Urogenital Radiation: Non-Radiating Severity scale (1-10): 5 Quality of pain: aching Consistency: constant Vaginal discharge: none Vaginal bleeding: none Relieving factors: none Associated symptoms: Reports nausea; Deny headache(s) Review of Systems Const: Denies: fever(s), chills or body aches Eyes: Denies: change in vision or blurry vision ENMT: Denies: throat pain or nasal congestion Card: Denies: chest pain or dyspnea on exertion Resp: Denies: dyspnea, productive cough or non-productive cough GI: Reports: nausea : Reports: flank pain Musc: Denies: extremity pain Skin/Breast: Denies: rash Neuro: Denies: headache(s) Psych: Denies: anxiety or depression Denis/Lymph: Denies: easy bruising PFSH ED PFSH: Medical History Back pain Chronic post-traumatic stress disorder (PTSD) She reports no problematic nightmares at this time, hypervigilance, avoidance behavior, or intrusive thoughts/flashbacks. Generalized anxiety disorder Chronic overlying anxiety, exacerbated by recent psychosocial stressors and her 's loss of job. GERD (gastroesophageal reflux disease) Knee pain Major depressive disorder, recurrent, moderate Migraines Obesity Surgical History History of cholecystectomy History of hysterectomy (07/21/16) LAVH, bilateral salpingectomy. Diag: Pelvic pain after endometrial ablation. Performed by Dr. James Liriano at [facility] in [place], [place]. History of thyroidectomy, subtotal (11/12/15) Left sided. Performed by Dr. Vale at [facility] in [place], [place] S/P endometrial ablation (11/06/14) Hydrothermal. Diag: Menorrhagia, Dysmenorrhea. Performed by Dr. James Liriano at [facility] in [place], [place] S/P tubal ligation (08/18/11) Performed by Dr. Kapoor at [facility] in [place], [place] Status post breast reduction (~2017) Family History Sister No problems noted. Grandmother Thyroid disease maternal Heart disease paternal Hypercholesteremia paternal Cancer Uterine Mother Cancer cervical cancer Father Heart disease Hypercholesteremia Hypertension Grandfather Heart disease paternal Family/Other Hypercholesteremia paternal aunt Heart disease Paternal aunt Denies family history of Anesthesia complication Bleeding disorder Social History Smoking and tobacco status: never smoked Alcohol intake: current Alcohol intake frequency: holidays/special occasions only Adopted: No Lives independently: No Household members: spouse and children Housing: House Marital status: Highest education level completed: High School Graduate service: No Current occupational status: employed 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 Current occupational exposures/hazards: No History of recent travel: No Leisure activites: exercise Current gender identity: Female Yamilka/Gnosticism: Mormon Special yamilka needs: No Agree to transfusion: No Financial difficulty paying for basics: Decline to Answer Physical Exam Const: COMMON NORMALS: no acute distress, average body habitus and patient oriented x3 HENMT: COMMON NORMALS: normocephalic HEAD & SCALP: normal to inspection and normocephalic FACE & SINUS: normal facial exam Eye: COMMON NORMALS: conjunctivae normal GENERAL EYE: appearance normal, both eyes and all related structures CONJUNCTIVA: Yes conjunctivae normal Neck/C-Spine: COMMON NORMALS: no JVD Chest: COMMONS NORMALS: normal inspection of the chest Resp: COMMON NORMALS: normal respiratory effort and clear to auscultation bilaterally AUSCULTATION: clear to auscultation bilaterally Cardio: COMMON NORMALS: no JVD, regular rate and regular rhythm RATE: regular rate RHYTHM: regular rhythm GI: COMMON NORMALS: Normal to inspection, nondistended, normoactive bowel sounds present : BLADDER/KIDNEY EXAM: Yes CVA tenderness Back/Pelvis: GENERAL BACK: Yes CVA tenderness CVA tenderness: left Extremity: COMMON NORMALS: normal to inspection and full ROM Neuro: COMMON NORMALS: patient oriented x3 Course Vital Signs: Vital signs: Vital Signs Temperature 98.2 F 04/04/20 09:04 Pulse Rate 101 H 04/04/20 09:54 Respiratory Rate 17 04/04/20 09:54 Blood Pressure 139/92 04/04/20 09:54 Pulse Oximetry 96 04/04/20 09:54 MDM - Female Lab Data: Labs: Lab Results 04/04/20 04/04/20 04/04/20 Range/Units 09:28 09:37 09:37 WBC 7.1 (4.0-10.0) 10^3/ uL RBC 4.31 (4.1-5.3) 10^6/u L Hgb 12.9 (11.5-15.3) g/dL Hct 38.8 (37.0-47.0) % MCV 90.0 (81-99) fL MCH 29.9 (28.0-34.0) pg MCHC 33.2 (30.0-36.0) g/dL RDW 11.8 L (12.1-15.1) % Plt Count 438 H (130-400) 10^3/c mm MPV 8.2 (7.4-10.4) fL Neut % (Auto) 57.9 % Lymph % (Auto) 33.6 % [place] % (Auto) 6.1 % Eos % (Auto) 1.1 % Baso % (Auto) 0.7 % Neut # (Auto) 4.09 (1.8-7.7) 10^3/u L Lymph # (Auto) 2.4 (0.8-4.8) 10^3/u L [place] # (Auto) 0.4 (0.2-0.9) 10^3/u L Eos # (Auto) 0.1 (0.0-0.8) 10^3/u L Baso # (Auto) 0.1 (0.0-0.1) 10^3/u L Nucleated RBC % (a uto) 0 % Nucleated RBCs # 0.0 /100WBC Sodium 138 (136-145) mmol/L Potassium 3.9 (3.5-5.1) mmol/L Chloride 106 (98-107) mmol/L Carbon Dioxide 23 (22-29) mmol/L Anion Gap 12.9 (5-19) BUN 8 (6-20) mg/dL Creatinine 0.5 (0.5-0.9) mg/dL GFR Calculation 141.2 H (90-130) mL/min Glucose 129 H (65-115) mg/dL Calculated Osmolal ity 284 L (285-295) mOsm/k g Calcium 8.3 L (8.5-10.5) mg/dL Total Bilirubin 0.2 (0.15-1.2) mg/dL AST 14 (0-32) U/L ALT 18 (0-33) U/L Alkaline Phosphata se 85 (35-105) IU/L Total Protein 7.0 (6.6-8.7) g/dL Albumin 4.0 (3.5-5.2) g/dL Globulin 3.0 (1.3-4.6) g/dL Lipase 71 H (13-60) U/L Urine Color Yellow (Yellow) Urine Appearance Hazy A (CLEAR) Urine pH 9 H (5-7) Ur Specific Gravit y 1.015 (1.005-1.030) Urine Protein Neg (Negative) Urine Glucose (UA) Norm (Normal) Urine Ketones Negative (Negative) Urine Blood Neg (Negative) Urine Nitrate Negative (Negative) Urine Bilirubin Neg (NEGATIVE) Urine Urobilinogen Neg (Negative) mg/dL Ur Leukocyte Bonnie ase Negative (Negative) Urine RBC 0-4 H (0-2) /hpf Urine WBC 0-4 H (0-5) /hpf Ur Squamous Epith Cells 15-25 H (0-5) Amorphous Sediment Not Reportable Urine Bacteria 2+ H (NONE) Urine Mucus 1+ Discharge Plan Discharge Prescriptions: No Action eszopiclone [Lunesta] 1 mg tablet 1 mg PO .qhs PRN (Reason: insomnia) Qty: 30 RF: 0 ibuprofen 200 mg capsule 200 mg PO Q6H PRN (Reason: n/v) RF: 0 promethazine 25 mg tablet 25 mg PO BID PRN (Reason: nausea and vomiting) Qty: 20 RF: 0 levothyroxine 25 mcg tablet 25 mcg PO DAILY RF: 0 hydrocodone-acetaminophen [[place]] 5-325 mg tablet 1 tab PO Q6H PRN (Reason: pain) Qty: 10 RF: 0 Coding Level of Care Code ED Fire Extinguisher Inspector for Tessa Gill
[2020-04-04] MEDS: HYDROcodone-acetaminophen 10-325 mg Tablet 1 TAB PO (10:54)
== END 2020-04-04 12:52 | disposition home or self-care (01) ==
PROVIDERS: Emergency Provider Nurse Practitioner Family; PCP Internal Medicine
DX: R10.9 Unspecified abdominal pain (principal)
CPT/HCPCS: 12345; 74176; 80053; 81001; 83690; 85025; 96361; 96374; 96375; 99283; J1885; J2405; J7030

== ENCOUNTER 2020-04-09 12:22 | Outpatient (CLI) | payer OTHER, SELFPAY ==
--- NOTE | 2020-04-09 12:15 | XRR_ITS ---
PROCEDURE INFORMATION: Exam: XR Abdomen, 1 View Exam date and time: 04/09/2020 12:45 PM Age: 34 years old Clinical indication: Condition or disease; Kidney or ureter condition; Calculus (stone) in kidney; Prior surgery; Surgery type: Tubal, hysterectomy gb; Additional info: Renal stone TECHNIQUE: Imaging protocol: XR of the abdomen. Views: Frontal supine view of the abdomen. 1 View. COMPARISON: CT kidney stone [id number] 04/04/2020 10:06 AM FINDINGS: Gastrointestinal tract: No dilated gas-filled loops of bowel. Organs: There is an 8 mm x 4 mm left renal calculus. Prior cholecystectomy. Bones/joints: No acute osseous abnormality. XR/XR KUB [id number] IMPRESSION: Left nephrolithiasis.
== END 2020-04-09 12:23 | disposition home or self-care (01) ==
LOC: RAD 12:28
PROVIDERS: PCP Family Medicine; Visit Provider Urology
DX: N20.0 Calculus of kidney (principal)
CPT/HCPCS: 74018; 81001

== ENCOUNTER 2020-04-11 09:20 | Outpatient (CLI) | payer OTHER, SELFPAY ==
--- NOTE | 2020-04-11 09:30 | US_ITS ---
WS: [id number] THYROID ULTRASOUND HISTORY: goiter, s/p left thyroidectomy, eval for nodules COMPARISON: None available. Right lobe: 5.4 cm x 1.7 cm x 2.2 cm. Volume: 10.3 cm3. Slightly enlarged gland is mildly heterogeneous. No nodules are identified. No increased vascularity. Left lobe: Prior LEFT lobectomy. No recurrent mass at the thyroid bed. Isthmus: 0.4 cm. US/US thyroid [id number] IMPRESSION: Prior LEFT thyroidectomy. Mildly heterogeneous RIGHT thyroid with no mass. TI-RADS: 1. Benign. No FNA. No ultrasound follow-up necessary. ACR Thyroid Imaging, Reporting and Data System (TI-RADS): White Paper of the [employer] R TI-RADS Committee. Published: November 13, 2016.
== END 2020-04-11 09:21 | disposition home or self-care (01) ==
LOC: US 09:23
PROVIDERS: PCP Family Medicine; Visit Provider Internal Medicine
DX: E04.9 Nontoxic goiter, unspecified (principal); E89.0 Postprocedural hypothyroidism
CPT/HCPCS: 76536

== ENCOUNTER 2020-04-12 10:00 | Outpatient (CLI) | payer OTHER, SELFPAY | END 2020-04-12 10:01 | disposition home or self-care (01) | LOC: RAD 02-10 15:37 | PROVIDERS: PCP Family Medicine; Visit Provider Urology | DX: N20.0 Calculus of kidney (principal) | CPT/HCPCS: 81001 ==

== ENCOUNTER → 2020-04-16 11:41 | Outpatient (BNVA) | payer OTHER, SELFPAY | PROVIDERS: PCP Family Medicine; Visit Provider Nurse Practitioner Family | DX: Z01.812 Encounter for preprocedural laboratory examination (principal) | CPT/HCPCS: 87635 ==

== ENCOUNTER 2020-04-19 10:58 | Day surgery (SDC) | payer OTHER, SELFPAY ==
[2020-04-18 10:13] VITALS: BMI 33.5
--- NOTE | 2020-04-19 11:05 | XR_ITS ---
WS: [id number] KUB, 04/19/2020 Clinical Data: Preop left ESWL Comparison: KUB, 04/09/2020. Findings: There is a calcification overlying the midportion of the left kidney unchanged. No right renal calci fications are seen. There are clips in the right upper quadrant from cholecystectomy. The bowel gas p attern is unremarkable. The true pelvis shows no calcifications. XR/XR KUB [id number] Impression: No change in left renal calculus.
[2020-04-19 11:25] VITALS: BP 160/102; PULSE 93; RESP 18; TEMP 36.6; O2SAT 97
[2020-04-19] MEDS: sodium chloride 0.9% 1,000 ML 30 ML IV (11:40)
--- NOTE | 2020-04-19 11:57 | P.ANESASSM_ITS ---
Pre-Anesthetic Assessment Pre-Anesthetic Assessment: Height/Weight: Height 1.63 m Weight 88.451 kg Preop Diagnosis: Left renal calculus Proposed Procedure: Operation Date: 04/19/20 12:40 Proposed Procedures p ESWL 87751 N20.0(Not Applicable) - Paul Teresa MD s Poss Cystoscopy(Not Applicable) - MD cristóbal Smith Ureteral Stent Placement(Not Applicable) - Paul Teresa MD Familial anesthetic complications: none Last intake: Intake Last Liquid Date 04/18/20 Last Liquid Time 22:30 Last Solid Date 04/17/20 Last Solid Time 20:00 Social: Social History: No alcohol and No tobacco Exam: Pre-Anes Outpt Exam: alert, oriented x 3, clear to auscultation bilaterally and regular rate & rhythm Airway: Cervical ROM: WNL MP: 3 Dentition: Chipped Metabolic: Metabolic: Morbid obesity and Thyroid Neuropsych: Neuropsych: Anxiety Anesthetic Plan: ASA status: 2 Anesthesia: General Risk of > 500 ml blood loss (7ml/kg in children): No PFSH Anesthesia PFSH: Medical History Back pain Chronic post-traumatic stress disorder (PTSD) She reports no problematic nightmares at this time, hypervigilance, avoidance behavior, or intrusive thoughts/flashbacks. Generalized anxiety disorder Chronic overlying anxiety, exacerbated by recent psychosocial stressors and her 's loss of job. GERD (gastroesophageal reflux disease) Knee pain Major depressive disorder, recurrent, moderate Migraines Obesity Renal stone Surgical History History of cholecystectomy History of hysterectomy (07/21/16) LAVH, bilateral salpingectomy. Diag: Pelvic pain after endometrial ablation. Performed by Dr. James Liriano at [facility] in [place], [place]. History of thyroidectomy, subtotal (11/12/15) Left sided. Performed by Dr. Vale at [facility] in [place], [place] S/P endometrial ablation (11/06/14) Hydrothermal. Diag: Menorrhagia, Dysmenorrhea. Performed by Dr. James Liriano at [facility] in [place], [place] S/P tubal ligation (01/03/12) Performed by Dr. Kapoor at [facility] in [place], [place] Status post breast reduction (~2017) Family History Sister No problems noted. Grandmother Thyroid disease maternal Heart disease paternal Hypercholesteremia paternal Cancer Uterine Mother Cancer cervical cancer Father Heart disease Hypercholesteremia Hypertension Grandfather Heart disease paternal Family/Other Hypercholesteremia paternal aunt Heart disease Paternal aunt Denies family history of Anesthesia complication Bleeding disorder Social History Smoking and tobacco status: never smoked Alcohol intake: current Alcohol intake frequency: holidays/special occasions only Adopted: No Lives independently: No Household members: spouse and children Housing: House Marital status: Highest education level completed: High School Graduate service: No Current occupational status: employed 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
[2020-04-19] MEDS: midazolam 1 mg/mL INJ 2 mL 2 MG IVP (12:02)
--- NOTE | 2020-04-19 13:04 | W.PM.OPSUD ---
Surgery/Procedure H&P Update DATE OF PROCEDURE: April 19, 2020 DATE H&P PERFORMED: 04/12/20 H&P UPDATE INFORMATION: I have reviewed H&P completed within last 30 days, I have examined patient prior to procedure, No changes to prior documentation and H&P is in [facility] EMR on date indicated PREOP DIAGNOSIS: Left renal calculus PLANNED PROCEDURE: Operation Date: 04/19/20 12:40 Proposed Procedures p ESWL 55737 N20.0(Not Applicable) - Paul Teresa MD s Poss Cystoscopy(Not Applicable) - Paul Teresa MD s Ureteral Stent Placement(Not Applicable) - Paul Teresa MD
[2020-04-19] MEDS: levofloxacin-dextrose 5 % 500 MG/100 ML PREMIX 100 MG IV (14:11)
[2020-04-19 14:49] VITALS: BP 147/88; PULSE 112; RESP 20; TEMP 37.4; O2SAT 100
[2020-04-19 14:55] VITALS: BP 135/77; PULSE 102; RESP 20; O2SAT 99
[2020-04-19 15:00] VITALS: BP 129/75; PULSE 92; RESP 16; O2SAT 96
--- NOTE | 2020-04-19 15:04 | P.OP_ITS ---
Operative Report Date of procedure: April 19, 2020 Pre-op Diagnosis: Left renal calculus Post-op diagnosis: same Procedure Done: Extracorporeal shockwave lithotripsy to left renal calculus Pathology: none sent Surgeon: Brii Operations Logistics Analyst: Lithotripsy Bag Filler Machine Operator: Marc Anesthesia: General Estimated blood loss: None Urine output: Not measured Complications: None Findings: Excellent change. Condition: stable Disposition: PACU Brief History: Sheryl is a very pleasant 34-year-old white female who is had persistent left flank pain for some time now of unclear characterization. She was found to have a moderate sized stone in the left kidney either in the upper pole calyx or possibly parenchymal. CT scan confirmed the stone but showed no obvious signs of obstruction. The general impression was that the stone was probably not the source of her pain but it could not be ruled out. She was offered ESWL as an option for treatment and initially chose not to but after thinking it over she decided to try to become stone free to rule out its contribution to her chronic left flank pain. Procedure: After routine preoperative evaluation examination and obtaining of informed consent she was taken to the operating suite on 04/19/2020 where general anesthesia was administered without difficulty after appropriate timeout was performed, SCDs confirmed to be functioning, preoperative antibiotics administered, beta-talib protocol confirmed. Positioned on the Dornier unit in supine position with a shock head positioned posteriorly. Real-time fluoroscopy was utilized to place the stone at the focal point. Stone was easily identified. Shockwave stats: 1. 1000 shocks administered. Abrupt change after approximately 150 shocks. 2. Could not see any significant particulate matter after about 600 shocks. 3. Initial intensity of 1 with advancement to 4. 4. Rate of 60 advanced to 90. Tolerated the procedure well without complications and was awakened in the operating room and returned to the recovery room in stable condition with anticipation of discharge from outpatient surgery. Plans: 1. Follow-up in approximately week with a KUB for
[2020-04-19 15:05] VITALS: BP 133/81; PULSE 93; RESP 20; TEMP 36.4; O2SAT 97
--- NOTE | 2020-04-19 15:05 | ANE.PACU2 ---
Inpatient post-anesthesia follow up: Airway intact: Yes Vital signs: Temperature 97.6 F Pulse Rate 93 Respiratory Rate 20 Blood Pressure 133/81 Pulse Oximetry 97 Oxygen Delivery Me thod Room Air Oxygen Flow Rate Fraction of Inspir ed Oxygen Hydration adequate: Yes Nausea and vomiting: No Pain level: 1 Mental status: Baseline
--- NOTE | 2020-04-19 15:05 | SUR.PHASEI ---
1449 PATIENT TO PACU FROM OR. NO DISTRESS. C/O NAUSEA. RR EVEN AND UNLABORED. ZOFRAN GIVEN BY ANESTHESIA.
[2020-04-19 15:07] VITALS: BP 128/77; PULSE 93; RESP 18; O2SAT 97
--- NOTE | 2020-04-19 15:09 | SUR.PHASEI ---
1506 PATIENT TO OPS, NAUSEA IMPROVED. DENIES PAIN.
[2020-04-19] MEDS: HYDROcodone-acetaminophen 5-325 mg Tablet 1 TAB PO (15:40)
== END 2020-04-19 15:55 | disposition home or self-care (01) ==
PROVIDERS: PCP Family Medicine; Visit Provider Urology
PROC: (CPT 50590; principal; 2020-04-19 12:40)
DX: N20.0 Calculus of kidney (principal); E66.01 Morbid (severe) obesity due to excess calories; Z68.33 Body mass index [BMI] 33.0-33.9, adult
CPT/HCPCS: 50590; 12345; 74018; 96374; J1956; J2250; J2704; J3010; J3490; J7030

== ENCOUNTER 2020-04-30 11:47 | Emergency (ER) | payer OTHER, SELFPAY ==
[2020-04-30 11:47] VITALS: BP 118/93; PULSE 93; RESP 18; TEMP 37.2; O2SAT 96
[2020-04-30 11:56] VITALS: BP 145/98; PULSE 87; RESP 18; TEMP 36.5; O2SAT 99; BMI 33.5
--- NOTE | 2020-04-30 12:09 | W.ED.HA ---
HPI - Headache General: Chief Complaint: Headache Stated Complaint: COVID SYMPTOMS W/ EXPOSURE Time Seen by Provider: 04/30/20 12:09 Source: patient History of Present Illness: HPI Narrative: 34 yo female with scratchy mild sore throat, low-grade fever and mild headache for 3 days. No known exposure to COVID patients. She has not lost her sense of taste says she cannot smell very well but she can still smell. Denies any diarrhea or shortness of breath. Does not smoke or vape. Hurts when she takes a deep breath occasionally. Associated symptoms: Deny chest pain, fever(s), nausea, rash or vomiting Review of Systems General: Reports: 10 or more systems reviewed and unremarkable except in HPI and below Const: Denies: fever(s) or chills Eyes: Denies: change in vision ENMT: Reports: throat pain Card: Denies: chest pain Resp: Reports: non-productive cough; Denies: dyspnea or productive cough GI: Denies: abdominal pain, nausea, vomiting or change in bowel habits : Denies: difficulty voiding Musc: Denies: muscle weakness Skin/Breast: Denies: rash Neuro: Reports: headache(s) Psych: Denies: hopelessness or suicidal ideation Endo: Denies: polyuria Denis/Lymph: Denies: easy bruising or easy bleeding All/Imm: Denies: urticaria PFSH ED PFSH: Medical History (Updated 04/30/20 @ 13:34 by Melanie Cartwright MD) Back pain Chronic post-traumatic stress disorder (PTSD) She reports no problematic nightmares at this time, hypervigilance, avoidance behavior, or intrusive thoughts/flashbacks. Generalized anxiety disorder Chronic overlying anxiety, exacerbated by recent psychosocial stressors and her 's loss of job. GERD (gastroesophageal reflux disease) Knee pain Major depressive disorder, recurrent, moderate Migraines Obesity Renal stone Surgical History History of cholecystectomy History of hysterectomy (07/21/16) LAVH, bilateral salpingectomy. Diag: Pelvic pain after endometrial ablation. Performed by Dr. James Liriano at [facility] in [place], [place]. History of thyroidectomy, subtotal (11/12/15) Left sided. Performed by Dr. Vale at [facility] [place] [facility] in [place], [place] S/P endometrial ablation (11/06/14) Hydrothermal. Diag: Menorrhagia, Dysmenorrhea. Performed by Dr. James Liriano at [facility] [place] [facility] in [place], [place] S/P tubal ligation (08/18/11) Performed by Dr. Kapoor at [facility] [place] [facility] in [place], [place] Status post breast reduction (~2016) Family History Sister No problems noted. Grandmother Thyroid disease maternal Heart disease paternal Hypercholesteremia paternal Cancer Uterine Mother Cancer cervical cancer Father Heart disease Hypercholesteremia Hypertension Grandfather Heart disease paternal Family/Other Hypercholesteremia paternal aunt Heart disease Paternal aunt Denies family history of Anesthesia complication Bleeding disorder Social History Smoking and tobacco status: never smoked Alcohol intake: current Alcohol intake frequency: holidays/special occasions only Adopted: No Lives independently: No Household members: spouse and children Housing: House Marital status: Highest education level completed: High School Graduate service: No Current occupational status: employed Current occupation: [employer] Current occupational exposures/hazards: No History of recent travel: No Leisure activites: exercise Current gender identity: Female [place]/Spiritism: Mormonism Special yamilka needs: No Agree to transfusion: No Financial difficulty paying for basics: Decline to Answer Physical Exam Const: COMMON NORMALS: no acute distress, patient oriented x3, alert and well nourished HENMT: COMMON NORMALS: normocephalic and Normal external nose present HEAD & SCALP: normocephalic NOSE: Normal external nose present MOUTH: no trismus Eye: COMMON NORMALS: EOMs intact bilaterally and conjunctivae normal CONJUNCTIVA: Yes conjunctivae normal Neck/C-Spine: COMMON NORMALS: full ROM, no lymphadenopathy and supple CERVICAL SPINE: Yes cervical ROM normal Lymph: LYMPHATIC: no lymphadenopathy noted Resp: COMMON NORMALS: normal respiratory effort, No retractions, No use of accessory muscles and clear to auscultation bilaterally EFFORT & INSPECTION: Yes able to speak in complete sentences AUSCULTATION: clear to auscultation bilaterally Cardio: COMMON NORMALS: regular rate and regular rhythm RATE: regular rate RHYTHM: regular rhythm GI: COMMON NORMALS: Normal to inspection, nondistended, normoactive bowel sounds present, Soft to palpation, non-tender and no masses INSPECTION: Yes normal to inspection AUSCULTATION: Yes normoactive bowel sounds PALPATION: Yes Soft to palpation, No Guarding due to palpation present (GI) and No Rigid due to palpation Back/Pelvis: OTHER: Normal range of motion Extremity: GENERAL: Yes normal exam except as noted Neuro: COMMON NORMALS: patient oriented x3 and CN's II-XII intact bilaterally SENSORIUM/ORIENTATION: Yes alert SPEECH: speech normal Psych: COMMON NORMALS: mental status grossly normal Skin: COMMON NORMALS: no rashes or lesions noted GENERAL SKIN EXAM: no rashes or lesions noted Course Vital Signs: Vital signs: Vital Signs Temperature 98.7 F 04/30/20 13:40 Pulse Rate 87 04/30/20 13:40 Respiratory Rate 18 04/30/20 13:40 Blood Pressure 130/76 04/30/20 13:40 Pulse Oximetry 97 04/30/20 13:40 MDM - Headache MDM Narrative: Medical decision making narrative: pt initially just wanted a rapid strep test but then decided that she did 1 to be 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 She is nontoxic-appearing. Lab Data: Attestation: I reviewed the patient's lab results. Labs: Lab Results 04/30/20 Range/Units 12:35 Group A Strep Rapi d Negative (Negative) Discharge Plan Discharge Patient Disposition: Home Clinical Impression: Upper respiratory infection Qualifiers: URI type: unspecified viral URI Qualified Code(s): J06.9 - Acute upper respiratory infection, unspecified Condition: Stable Prescriptions: No Action eszopiclone [Lunesta] 1 mg tablet 1 mg PO .qhs PRN (Reason: insomnia) Qty: 30 RF: 0 ibuprofen 200 mg capsule 200 mg PO Q6H PRN (Reason: n/v) RF: 0 promethazine 25 mg tablet 25 mg PO BID PRN (Reason: nausea and vomiting) Qty: 20 RF: 0 levothyroxine 25 mcg tablet 25 mcg PO DAILY RF: 0 oxaprozin [Daypro] 600 mg tablet 600 mg PO TID Qty: 14 RF: 0 Discharge Orders: Discharge Order (Routine); Ordered 04/30/20 Ordered By: Melanie Chay Referrals: Steph Krueger MD [Primary Care Provider] - Patient Instructions: Viral Syndrome (ED) Activity Restrictions/Additional Instructions: you will need to quarantine until test results are back. OTC cold and flu medication for symptomatic relief. Discharge Date/Time: 04/30/20 13:43 Coding Level of Care Code ED Scale Agent for Alekg Fwd Exam Comprehensive
[2020-04-30 12:21] VITALS: BP 136/87; PULSE 87; RESP 18; TEMP 36.9; O2SAT 100
[2020-04-30] MEDS: acetaminophen 500 mg Tablet 1000 MG PO (12:32)
[2020-04-30 12:48] LABS: Rapid Strep A Test Negative (Negative)
[2020-04-30 13:40] VITALS: BP 130/76; PULSE 87; RESP 18; TEMP 37.1; O2SAT 97
[2020-05-01 20:59] LABS: Coronavirus Lab Test PTC Negative
--- NOTE | 2020-05-02 08:26 | PC.NURSE ---
Pt notified of negative COVID result.
== END 2020-04-30 13:43 | disposition home or self-care (01) ==
PROVIDERS: Emergency Provider Emergency Medicine; PCP Family Medicine
DX: J06.9 Acute upper respiratory infection, unspecified (principal)
CPT/HCPCS: 12345; 87081; 87635; 87880; 99283

== ENCOUNTER → 2020-05-10 10:14 | Outpatient (BNVA) | payer OTHER, SELFPAY | PROVIDERS: PCP Family Medicine; Visit Provider Nurse Practitioner Family | DX: Z20.828 Contact with and (suspected) exposure to other viral communicable diseases (principal) | CPT/HCPCS: 87635 ==

== ENCOUNTER 2020-05-12 13:47 | Emergency (ER) | payer OTHER, SELFPAY ==
[2020-05-12 13:47] VITALS: BP 164/108; PULSE 92; RESP 18; TEMP 36.7; O2SAT 98; BMI 33.5
== END 2020-05-12 14:48 | disposition left against medical advice (07) ==
PROVIDERS: Emergency Provider Family Medicine; PCP Family Medicine
DX: Z53.21 Procedure and treatment not carried out due to patient leaving prior to being seen by health care provider (principal)
CPT/HCPCS: 99282

== ENCOUNTER 2020-07-31 15:26 | Emergency (ER) | payer OTHER, SELFPAY ==
[2020-07-31 15:34] VITALS: BP 159/110; PULSE 109; RESP 18; TEMP 36.9; O2SAT 99; BMI 33.4
[2020-07-31 15:38] VITALS: BP 159/59; PULSE 102; RESP 18; O2SAT 97
--- NOTE | 2020-07-31 15:45 | CTR_ITS ---
PROCEDURE INFORMATION: Exam: CT Head Without Contrast Exam date and time: 07/31/2020 4:38 PM Age: 35 years old Clinical indication: Pain; Headache; Additional info: KISER TECHNIQUE: Imaging protocol: Computed tomography of the head without contrast. Radiation optimization: All CT scans at this facility use at least one of these dose optimization techniques: automated exposure control; mA and/or kV adjustment per patient size (includes targeted exams where dose is matched to clinical indication); or iterative reconstruction. COMPARISON: CT head wo con* [id number] 07/13/2019 8:15 PM RADIATION DOSE METRICS: Total DLP (mGy-cm): 799.76 FINDINGS: Brain: Normal. No hemorrhage. Unremarkable white matter. No mass effect. Cerebral ventricles: No ventriculomegaly. Bones/joints: Unremarkable. No acute fracture. Paranasal sinuses: Visualized sinuses are unremarkable. No fluid levels. Mastoid air cells: Visualized mastoid air cells are well aerated. Soft tissues: Unremarkable. CT/CT head wo con* [id number] IMPRESSION: No acute intracranial abnormality. Radiation Dose CTDIVOL = (mGy): DLP = 799.76 (mGy-cm)
--- NOTE | 2020-07-31 15:45 | CTR_ITS ---
PROCEDURE INFORMATION: Exam: CT Angiography Head With Contrast Exam date and time: 07/31/2020 4:38 PM Age: 35 years old Clinical indication: Pain; Headache; Prior surgery; Surgery type: Thyroid; Additional info: KISER TECHNIQUE: Imaging protocol: Computed tomography angiography of the head with intravenous contrast. 3D rendering (Not supervised by radiologist): MIP and/or 3D reconstructed images were created by the technologist. Radiation optimization: All CT scans at this facility use at least one of these dose optimization techniques: automated exposure control; mA and/or kV adjustment per patient size (includes targeted exams where dose is matched to clinical indication); or iterative reconstruction. Contrast material: OMNI 350; Contrast volume: 95 ml; Contrast route: INTRAVENOUS (IV); COMPARISON: CT head wo con* [id number] 07/31/2020 4:37 PM RADIATION DOSE METRICS: Total DLP (mGy-cm): 2342.49 FINDINGS: ANTERIOR CIRCULATION: Right internal carotid artery: Unremarkable. Intracranial segment is patent with no significant stenosis. No aneurysm. Right middle cerebral artery: Unremarkable. No occlusion or significant stenosis. No aneurysm. Right anterior cerebral artery: Unremarkable. No occlusion or significant stenosis. No aneurysm. Left internal carotid artery: Unremarkable. Intracranial segment is patent with no significant stenosis. No aneurysm. Left middle cerebral artery: Unremarkable. No occlusion or significant stenosis. No aneurysm. Left anterior cerebral artery: Unremarkable. No occlusion or significant stenosis. No aneurysm. POSTERIOR CIRCULATION: Right vertebral artery: Unremarkable. No occlusion or significant stenosis. No aneurysm. Left vertebral artery: Unremarkable. No occlusion or significant stenosis. No aneurysm. Basilar artery: Unremarkable. No occlusion or significant stenosis. No aneurysm. Right posterior cerebral artery: Unremarkable. No occlusion or significant stenosis. No aneurysm. Left posterior cerebral artery: Unremarkable. No occlusion or significant stenosis. No aneurysm. Brain: No definite mass, mass effect, or midline shift. Cerebral ventricles: No ventriculomegaly. Bones/joints: Unremarkable. No acute fracture. Soft tissues: Unremarkable. IMPRESSION: No large vessel stenosis or occlusion. PROCEDURE INFORMATION: Exam: CT Angiography Neck With Contrast Exam date and time: 07/31/2020 4:38 PM Age: 35 years old Clinical indication: Pain; Headache; Prior surgery; Surgery type: Thyroid; Additional info: KISER TECHNIQUE: Imaging protocol: Computed tomography angiography of the neck with intravenous contrast. 3D rendering (Not supervised by radiologist): MIP and/or 3D reconstructed images were created by the technologist. Radiation optimization: All CT scans at this facility use at least one of these dose optimization techniques: automated exposure control; mA and/or kV adjustment per patient size (includes targeted exams where dose is matched to clinical indication); or iterative reconstruction. Contrast material: OMNI 350; Contrast volume: 95 ml; Contrast route: INTRAVENOUS (IV); COMPARISON: CT head wo con* [id number] 07/31/2020 4:37 PM RADIATION DOSE METRICS: Total DLP (mGy-cm): 2342.49 FINDINGS: Right common carotid artery: No stenosis. No dissection or occlusion. Right internal carotid artery: No stenosis of the extracranial segment. No dissection or occlusion. Right external carotid artery: No occlusion or stenosis of the origin. Right vertebral artery: No stenosis. No dissection or occlusion. Left common carotid artery: No stenosis. No dissection or occlusion. Left internal carotid artery: No stenosis of the extracranial segment. No dissection or occlusion. Left external carotid artery: No occlusion or stenosis of the origin. Left vertebral artery: No stenosis. No dissection or occlusion. Thyroid: Prior left thyroidectomy. Bones/joints: No acute fracture. Soft tissues: Normal. No significant soft tissue swelling. CT/CT angio headneck* [id number] IMPRESSION: No arterial stenosis, occlusion or dissection evident. REFERENCES: NASCET CRITERIA. The degree of internal carotid artery stenosis is based on NASCET criteria. Normal is no stenosis. Mild is less than 50% stenosis. Moderate is 50-69% stenosis. Severe is 70% to 99% stenosis. Total occlusion is no detectable patent lumen. Radiation Dose CTDIVOL = (mGy): DLP = 2342.49~2342.49 (mGy-cm)
--- NOTE | 2020-07-31 15:47 | W.ED.DIZZY ---
HPI - Dizziness General: Chief Complaint: Dizziness Stated Complaint: DIZZINESS, HEAD PRESSURE, NECK PAIN Time Seen by Provider: 07/31/20 15:39 Source: patient Mode of arrival: ambulatory Limitations: no limitations History of Present Illness: HPI Narrative: 35-year-old female states she woke up this morning with feeling weird. States that she had a slight headache states that she feels like she has a balloon in her head. States she had some numbness to her hand and face but denies any currently. She denies any weakness has no problems walking. She denies any worsening or improving factors. She denies any vomiting. She does have a history of migraines but states this feels different Associated symptoms: Denies chest pain, chills, headache(s), nausea or vomiting Review of Systems Const: Denies: fever(s), chills, body aches or change in appetite Eyes: Denies: blurry vision or eye discomfort ENMT: Denies: throat pain or dental pain Card: Denies: chest pain Resp: Denies: dyspnea GI: Denies: abdominal pain, nausea, vomiting or diarrhea : Denies: dysuria Musc: Denies: neck pain or back pain Skin/Breast: Denies: rash Neuro: Denies: headache(s) Psych: Denies: depression Denis/Lymph: Denies: easy bruising All/Imm: Denies: urticaria PFSH ED PFSH: Medical History Back pain Chronic post-traumatic stress disorder (PTSD) She reports no problematic nightmares at this time, hypervigilance, avoidance behavior, or intrusive thoughts/flashbacks. Folliculitis Generalized anxiety disorder Chronic overlying anxiety, exacerbated by recent psychosocial stressors and her 's loss of job. GERD (gastroesophageal reflux disease) Knee pain Major depressive disorder, recurrent, moderate Migraines Obesity Pain in lower limb Renal stone Swelling of lower leg Surgical History History of cholecystectomy History of hysterectomy (07/21/16) LAVH, bilateral salpingectomy. Diag: Pelvic pain after endometrial ablation. Performed by Dr. James Liriano at [facility] in [place], [place]. History of thyroidectomy, subtotal (11/12/15) Left sided. Performed by Dr. Vale at [facility] in [place], [place] S/P endometrial ablation (11/06/14) Hydrothermal. Diag: Menorrhagia, Dysmenorrhea. Performed by Dr. James Liriano at [facility] in [place], [place] S/P tubal ligation (08/18/11) Performed by Dr. Kapoor at [facility] in [place], [place] Status post breast reduction (~2016) Family History Sister No problems noted. Grandmother Thyroid disease maternal Heart disease paternal Hypercholesteremia paternal Cancer Uterine Mother Cancer cervical cancer Father Heart disease Hypercholesteremia Hypertension Grandfather Heart disease paternal Family/Other Hypercholesteremia paternal aunt Heart disease Paternal aunt Denies family history of Anesthesia complication Bleeding disorder Social History Smoking and tobacco status: never smoked Alcohol intake: current Alcohol intake frequency: holidays/special occasions only Adopted: No Lives independently: No Household members: spouse and children Housing: House Marital status: Highest education level completed: High School Graduate service: No Current occupational status: employed 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 Current occupational exposures/hazards: No History of recent travel: No Leisure activites: exercise Current gender identity: Female Yamilka/Roman Catholic: Episcopal Special yamilka needs: No Agree to transfusion: No Financial difficulty paying for basics: Decline to Answer Physical Exam Const: COMMON NORMALS: no acute distress, patient oriented x3 and healthy appearing HENMT: COMMON NORMALS: normocephalic and atraumatic HEAD & SCALP: normocephalic and atraumatic Eye: COMMON NORMALS: Equal, round and reactive pupils present and EOMs intact bilaterally PUPIL: Yes Equal, round and reactive pupils present Neck/C-Spine: COMMON NORMALS: full ROM and supple OTHER: Patient has no meningeal signs she is able to turn her head left and right with no stiffness or pain Chest: COMMONS NORMALS: normal inspection of the chest and normal palpation of entire chest wall Resp: COMMON NORMALS: normal respiratory effort, No retractions, No use of accessory muscles and clear to auscultation bilaterally AUSCULTATION: clear to auscultation bilaterally Cardio: COMMON NORMALS: regular rate, regular rhythm and No murmurs present (Cardio) RATE: regular rate RHYTHM: regular rhythm GI: COMMON NORMALS: Normal to inspection, nondistended, normoactive bowel sounds present, Soft to palpation, non-tender and no masses PALPATION: Yes Soft to palpation Extremity: COMMON NORMALS: normal to inspection and full ROM Neuro: COMMON NORMALS: patient oriented x3, moves all extremities and no focal motor deficits OTHER: Sensation intact to bilateral upper extremities Psych: COMMON NORMALS: mental status grossly normal, Normal thought process present and cooperative THOUGHT PROCESS: Normal thought process present Skin: COMMON NORMALS: no rashes or lesions noted and no wounds GENERAL SKIN EXAM: no rashes or lesions noted Course Vital Signs: Vital signs: Vital Signs Temperature 98.9 F 07/31/20 17:47 Pulse Rate 102 H 07/31/20 17:47 Respiratory Rate 18 07/31/20 17:47 Blood Pressure 142/90 07/31/20 17:47 Pulse Oximetry 97 07/31/20 17:47 MDM - Dizziness MDM Narrative: Medical decision making narrative: Sheryl presents here with headache. Her headache is resolved and her paresthesias resolved as well. Her neuro exam at discharge is benign. She has no decrease sensation in exam at discharge. She has no facial or arm paresthesias at this time. She has no signs of a stroke CT head and CTA of head are normal. Patient is stable for discharge and is to follow-up with PCP in 3 to 5 days return if worsening. Lab Data: Labs: Lab Results 07/31/20 07/31/20 Range/Units 16:05 16:05 WBC 7.7 (4.0-10.0) 10^3/ uL RBC 4.33 (4.1-5.3) 10^6/u L Hgb 13.1 (11.5-15.3) g/dL Hct 39.0 (37.0-47.0) % MCV 90.1 (81-99) fL MCH 30.3 (28.0-34.0) pg MCHC 33.6 (30.0-36.0) g/dL RDW 12.0 L (12.1-15.1) % Plt Count 486 H (130-400) 10^3/c mm MPV 8.4 (7.4-10.4) fL Neut % (Auto) 56.7 % Lymph % (Auto) 34.8 % Labette % (Auto) 6.7 % Eos % (Auto) 0.9 % Baso % (Auto) 0.6 % Neut # (Auto) 4.38 (1.8-7.7) 10^3/u L Lymph # (Auto) 2.7 (0.8-4.8) 10^3/u L Labette # (Auto) 0.5 (0.2-0.9) 10^3/u L Eos # (Auto) 0.1 (0.0-0.8) 10^3/u L Baso # (Auto) 0.1 (0.0-0.1) 10^3/u L Nucleated RBC % (a uto) 0 % Nucleated RBCs # 0.0 /100WBC Sodium 137 (136-145) mmol/L Potassium 3.8 (3.5-5.1) mmol/L Chloride 105 (98-107) mmol/L Carbon Dioxide 23 (22-29) mmol/L Anion Gap 12.8 (5-19) BUN 7 (6-20) mg/dL Creatinine 0.6 (0.5-0.9) mg/dL GFR Calculation 113.8 (90-130) mL/min Glucose 107 (65-115) mg/dL Calculated Osmolal ity 282 L (285-295) mOsm/k g Calcium 9.0 (8.5-10.5) mg/dL Total Bilirubin 0.2 (0.15-1.2) mg/dL AST 20 (0-32) U/L ALT 18 (0-33) U/L Alkaline Phosphata se 93 (35-105) IU/L Total Protein 7.0 (6.6-8.7) g/dL Albumin 4.0 (3.5-5.2) g/dL Globulin 3.0 (1.3-4.6) g/dL Imaging Data^: CT Head: Attestation: I personally reviewed and interpreted this imaging study as follows: Radiologist's impression: [address] [address] [address] Scan Report Signed Patient: Rimma Mariee Unit #: [id number] : 1985 Age/Sex: 35 / F ADM Date: 07/31/20 Loc: ER Room/Bed: Attending Dr: Ordering Provider/Ordering MD: Willam Prince MD Date of Service: 07/31/20 Procedure(s): CT head wo con* [id number] Accession Number(s): [id number] Report Number: [id number] PROCEDURE INFORMATION: Exam: CT Head Without Contrast Exam date and time: 07/31/2020 4:38 PM Age: 35 years old Clinical indication: Pain; Headache; Additional info: KISER TECHNIQUE: Imaging protocol: Computed tomography of the head without contrast. Radiation optimization: All CT scans at this facility use at least one of these dose optimization techniques: automated exposure control; mA and/or kV adjustment per patient size (includes targeted exams where dose is matched to clinical indication); or iterative reconstruction. COMPARISON: CT head wo con* [id number] 07/13/2019 8:15 PM RADIATION DOSE METRICS: Total DLP (mGy-cm): 799.76 FINDINGS: Brain: Normal. No hemorrhage. Unremarkable white matter. No mass effect. Cerebral ventricles: No ventriculomegaly. Bones/joints: Unremarkable. No acute fracture. Paranasal sinuses: Visualized sinuses are unremarkable. No fluid levels. Mastoid air cells: Visualized mastoid air cells are well aerated. Soft tissues: Unremarkable. CT/CT head wo con* [id number] IMPRESSION: No acute intracranial abnormality. Other CT: Radiologist's impression: [place] [address] CT Scan Report Signed Patient: Rimma Mariee Unit #: [id number] : 1985 Age/Sex: 35 / F ADM Date: 07/31/20 Loc: ER Room/Bed: Attending Dr: Ordering Provider/Ordering MD: Willam Prince MD Date of Service: 07/31/20 Procedure(s): CT angio headneck* [id number] Accession Number(s): [id number] Report Number: [id number] PROCEDURE INFORMATION: Exam: CT Angiography Head With Contrast Exam date and time: 07/31/2020 4:38 PM Age: 35 years old Clinical indication: Pain; Headache; Prior surgery; Surgery type: Thyroid; Additional info: KISER TECHNIQUE: Imaging protocol: Computed tomography angiography of the head with intravenous contrast. 3D rendering (Not supervised by radiologist): MIP and/or 3D reconstructed images were created by the technologist. Radiation optimization: All CT scans at this facility use at least one of these dose optimization techniques: automated exposure control; mA and/or kV adjustment per patient size (includes targeted exams where dose is matched to clinical indication); or iterative reconstruction. Contrast material: OMNI 350; Contrast volume: 95 ml; Contrast route: INTRAVENOUS (IV); COMPARISON: CT head wo con* [id number] 07/31/2020 4:37 PM RADIATION DOSE METRICS: Total DLP (mGy-cm): 2342.49 FINDINGS: ANTERIOR CIRCULATION: Right internal carotid artery: Unremarkable. Intracranial segment is patent with no significant stenosis. No aneurysm. Right middle cerebral artery: Unremarkable. No occlusion or significant stenosis. No aneurysm. Right anterior cerebral artery: Unremarkable. No occlusion or significant stenosis. No aneurysm. Left internal carotid artery: Unremarkable. Intracranial segment is patent with no significant stenosis. No aneurysm. Left middle cerebral artery: Unremarkable. No occlusion or significant stenosis. No aneurysm. Left anterior cerebral artery: Unremarkable. No occlusion or significant stenosis. No aneurysm. POSTERIOR CIRCULATION: Right vertebral artery: Unremarkable. No occlusion or significant stenosis. No aneurysm. Left vertebral artery: Unremarkable. No occlusion or significant stenosis. No aneurysm. Basilar artery: Unremarkable. No occlusion or significant stenosis. No aneurysm. Right posterior cerebral artery: Unremarkable. No occlusion or significant stenosis. No aneurysm. Left posterior cerebral artery: Unremarkable. No occlusion or significant stenosis. No aneurysm. Brain: No definite mass, mass effect, or midline shift. Cerebral ventricles: No ventriculomegaly. Bones/joints: Unremarkable. No acute fracture. Soft tissues: Unremarkable. IMPRESSION: No large vessel stenosis or occlusion. PROCEDURE INFORMATION: Exam: CT Angiography Neck With Contrast Exam date and time: 07/31/2020 4:38 PM Age: 35 years old Clinical indication: Pain; Headache; Prior surgery; Surgery type: Thyroid; Additional info: KISER TECHNIQUE: Imaging protocol: Computed tomography angiography of the neck with intravenous contrast. 3D rendering (Not supervised by radiologist): MIP and/or 3D reconstructed images were created by the technologist. Radiation optimization: All CT scans at this facility use at least one of these dose optimization techniques: automated exposure control; mA and/or kV adjustment per patient size (includes targeted exams where dose is matched to clinical indication); or iterative reconstruction. Contrast material: OMNI 350; Contrast volume: 95 ml; Contrast route: INTRAVENOUS (IV); COMPARISON: CT head wo con* [id number] 07/31/2020 4:37 PM RADIATION DOSE METRICS: Total DLP (mGy-cm): 2342.49 FINDINGS: Right common carotid artery: No stenosis. No dissection or occlusion. Right internal carotid artery: No stenosis of the extracranial segment. No dissection or occlusion. Right external carotid artery: No occlusion or stenosis of the origin. Right vertebral artery: No stenosis. No dissection or occlusion. Left common carotid artery: No stenosis. No dissection or occlusion. Left internal carotid artery: No stenosis of the extracranial segment. No dissection or occlusion. Left external carotid artery: No occlusion or stenosis of the origin. Left vertebral artery: No stenosis. No dissection or occlusion. Thyroid: Prior left thyroidectomy. Bones/joints: No acute fracture. Soft tissues: Normal. No significant soft tissue swelling. CT/CT angio headneck* [id number] IMPRESSION: No arterial stenosis, occlusion or dissection evident. EKG Data^: EKG 1: Attestation: I personally reviewed and interpreted this EKG as follows: EKG interpretation date: 07/31/20 EKG interpretation time: 16:17 Interpretation: sinus tach hr [address] or t wave abnormalities qrs 85 qtc 402 Discharge Plan Discharge Patient Disposition: Home Clinical Impression: Paresthesia Headache Qualifiers: Headache type: unspecified Headache chronicity pattern: unspecified pattern Intractability: not intractable Qualified Code(s): R51.9 - Headache, unspecified Condition: Stable Prescriptions: No Action ibuprofen 200 mg capsule 400 mg PO PRN RF: 0 phentermine 37.5 mg capsule 37.5 mg PO DAILY PRN (Reason: UNKNOWN) RF: 0 levothyroxine 25 mcg tablet 25 mcg PO EVERY OTHER DAY RF: 0 venlafaxine 37.5 mg capsule,extended release 24hr 37.5 mg PO DAILY RF: 0 trazodone 50 mg tablet 75 mg PO BEDTIME RF: 0 Otc Water Pill 1 tab PO PRN RF: 0 Discharge Orders: Discharge ED (Routine); Ordered 07/31/20 Ordered By: Willam Prince Referrals: Steph Krueger MD [Primary Care Provider] - 1-3 days Discharge Diet: Advance as tolerated Discharge Activity: Resume usual activity Patient Instructions: Headache, Paresthesia (ED) Coding Level of Care Code ED 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
--- NOTE | 2020-07-31 15:50 | ECG_ITS ---
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 Measurements Intervals [place] Rate: 100 P: 61 CO: 156 QRS: 56 QRSD: 85 T: 53 QT: 345 QTc: 446 Interpretive Statements SINUS TACHYCARDIA ABNORMAL RHYTHM ECG Compared to ECG 02/18/2020 20:31:12 No significant changes Electronically Signed On 08-01-2020 22:21:59 COORDINATOR OF EVALUATION by Rolando Bartlett M.D. [id number]
[2020-07-31 15:55] VITALS: BP 152/104; PULSE 108; RESP 16; O2SAT 97
[2020-07-31 16:22] LABS: Basophils # 0.1 10^3/uL (0.0-0.1); Basophils % 0.6 %; Eosinophils # 0.1 10^3/uL (0.0-0.8); Eosinophils % 0.9 %; Hemoglobin 13.1 g/dL (11.5-15.3); Lymphocytes # 2.7 10^3/uL (0.8-4.8); Lymphocytes % 34.8 %; Mean Corpuscular HGB Conc 33.6 g/dL (30.0-36.0); Mean Corpuscular Hemoglobin 30.3 pg (28.0-34.0); Mean Corpuscular Volume 90.1 fL (81-99); Mean Platelet Volume 8.4 fL (7.4-10.4); Monocytes # 0.5 10^3/uL (0.2-0.9); Monocytes % 6.7 %; Neutrophils # 4.38 10^3/uL (1.8-7.7); Neutrophils % 56.7 %; Nucleated Red Blood Cells % 0 %; Platelet Count 486 10^3/cmm (130-400); Red Blood Count 4.33 10^6/uL (4.1-5.3); White Blood Count 7.7 10^3/uL (4.0-10.0)
[2020-07-31 16:26] VITALS: BP 154/99; PULSE 107; RESP 18; O2SAT 96
[2020-07-31 16:40] VITALS: BP 151/92; PULSE 103; RESP 16; O2SAT 98
[2020-07-31] MEDS: diphenhydrAMINE 50 mg/mL SDV 1mL IVP (16:40)
[2020-07-31] MEDS: sodium chloride 0.9% 1,000 ML 999 ML IV (16:41)
[2020-07-31] MEDS: metoclopramide 5 mg/mL SDV 2 mL 10 MG IVP (16:41)
[2020-07-31] MEDS: iohexol 350 mg/mL 100 mL Btl IV (16:51)
[2020-07-31 16:55] LABS: Alanine Aminotransferase 18 U/L (0-33); Alkaline Phosphatase 93 IU/L (35-105); Anion Gap 12.8 (5-19); Aspartate Amino Transferase 20 U/L (0-32); Blood Urea Nitrogen 7 mg/dL (6-20); Carbon Dioxide 23 mmol/L (22-29); Chloride 105 mmol/L (98-107); Glomerular Filtration Rate 113.8 mL/min (90-130); Glucose 107 mg/dL (65-115); Osmolality Calculated 282 mOsm/kg (285-295); Potassium 3.8 mmol/L (3.5-5.1); Sodium 137 mmol/L (136-145); Total Bilirubin 0.2 mg/dL (0.15-1.2)
[2020-07-31 17:47] VITALS: BP 142/90; PULSE 102; RESP 18; TEMP 37.2; O2SAT 97
== END 2020-07-31 17:50 | disposition home or self-care (01) ==
PROVIDERS: Emergency Provider Emergency Medicine; PCP Family Medicine
DX: R51.9 Headache, unspecified (principal); R20.2 Paresthesia of skin
CPT/HCPCS: 12345; 70450; 70496; 70498; 80053; 85025; 93005; 96361; 96374; 96375; 99283; J1200; J2765; J7030; Q9967

== ENCOUNTER 2021-04-07 13:47 | Outpatient (CLI) | payer BC, SELFPAY ==
--- NOTE | 2021-04-07 13:53 | US_ITS ---
WS: [id number] ULTRASOUND PELVIS TECHNIQUE: Transabdominal and transvaginal. ULTRASOUND PELVIS CLINICAL INFORMATION: LLQ PAIN : No. COMPARISON: None. FINDINGS: Prior hysterectomy. Adnexa: Small left corpus luteum or hemorrhagic cyst measuring 8.2 x 7.6 x 8.5 mm Right ovary size: 2.0 cm x 1.6 cm x 1.8 cm. Right ovary volume: 2.9 ccm3. Left ovary size: 2.1 cm x 2.0 cm x 2.5 cm. Left ovary volume: 5.7 ccm3 Free fluid: None. Other findings: None. US/US pelvic with transvaginal IMPRESSION: 1. Prior hysterectomy 2. Small left corpus luteum or hemorrhagic cyst measuring 8.2 x 7.6 x 8.5 mm 3. Normal right ovary. 4. No free fluid in the cul-de-sac.
== END 2021-04-07 13:48 | disposition home or self-care (01) ==
PROVIDERS: PCP Family Medicine; Visit Provider Family Medicine
DX: R10.32 Left lower quadrant pain (principal); Z90.710 Acquired absence of both cervix and uterus
CPT/HCPCS: 76830; 76856

== ENCOUNTER 2021-07-26 21:13 | Emergency (ER) | payer BC, SELFPAY ==
[2021-07-26 21:18] VITALS: BP 183/88; PULSE 110; RESP 19; TEMP 36.3; O2SAT 97; BMI 29.4
--- NOTE | 2021-07-26 21:30 | XRR_ITS ---
PROCEDURE INFORMATION: Exam: XR Chest Exam date and time: 07/26/2021 9:30 PM Age: 36 years old Clinical indication: Dyspnea; Prior surgery; Surgery type: Breast reduction; Additional info: Cough TECHNIQUE: Imaging protocol: XR of the chest. Views: 1 view. COMPARISON: CR (CHEST, ) 08/21/2019 9:26 AM FINDINGS: Lungs: Unremarkable. No consolidation. Pleural spaces: Unremarkable. No pleural effusion. No pneumothorax. Heart/Mediastinum: Unremarkable. No cardiomegaly. Bones/joints: Unremarkable. XR/XR chest 1V portable [id number] IMPRESSION: No acute findings.
[2021-07-26 21:49] LABS: Rapid Strep A Test Negative (Negative)
[2021-07-26 22:00] LABS: Influenza A by IFA Negative (Negative); Influenza B by IFA Negative (Negative); SARS Covid-2 Antigen Negative (Negative)
--- NOTE | 2021-07-26 22:24 | W.ED.COVID ---
HPI - COVID General: Chief Complaint: COVID symptoms Stated Complaint: Cough\Sore Throat\Conjestion Time Seen by Provider: 07/26/21 22:24 Triage information: Has fever, cough or shortness of breath. No known COVID + exposure last 14 days History of Present Illness: HPI Narrative: Patient is a 36-year-old female comes to the ED with upper respiratory symptoms. Patient says symptoms started approximately a week ago. She has had a sore throat, nasal drainage and congestion and a cough. Patient has a past medical history of asthma and lost her inhaler so she currently does not have 1. She says the cough has continued to get worse since mostly dry. She does endorse having some mild shortness of breath since onset of symptoms. Denies any fevers, chest pain, abdominal pain, nausea/vomiting, bladder or bowel symptoms. Patient has had full course of Moderna Covid vaccines. COVID 19 common symptoms: positive non-productive cough, dyspnea, fatigue, throat pain and nasal congestion; negative fever(s), chills, productive cough, headache(s), nausea, vomiting or diarrhea COVID 19 other sytmptoms: negative chest pain COVID Results: SARS-CoV-2 Antigen (Rapid) Negative (Negative) 07/26/21 21:35 07/26/21 SARS-CoV-2 RNA (RT-PCR) Detected (NOT DETECTED) A 05/10/20 10:14 05/10/20 Nasal/Oral Coronavirus 2019 PCR Negative 04/30/20 13:35 04/30/20 Review of Systems Const: Reports: fatigue; Denies: fever(s) or chills Eyes: Denies: change in vision or eye discomfort ENMT: Reports: throat pain, nasal discharge and nasal congestion; Denies: odynophagia or ear or mastoid pain Card: Denies: chest pain, palpitations, edema, swelling of feet/ankles, dyspnea on exertion or orthopnea Resp: Reports: dyspnea and non-productive cough; Denies: productive cough GI: Denies: abdominal pain, nausea, vomiting, diarrhea, constipation or hematochezia : Denies: flank pain, dysuria or hematuria Musc: Denies: neck pain, back pain or extremity swelling Skin/Breast: Denies: rash or new lesions Neuro: Denies: headache(s), numbness in extremities or weakness in extremities [facility] PFSH: Medical History Back pain Chronic post-traumatic stress disorder (PTSD) She reports no problematic nightmares at this time, hypervigilance, avoidance behavior, or intrusive thoughts/flashbacks. Folliculitis Generalized anxiety disorder Chronic overlying anxiety, exacerbated by recent psychosocial stressors and her 's loss of job. GERD (gastroesophageal reflux disease) Knee pain Major depressive disorder, recurrent, moderate Migraines Obesity Pain in lower limb Renal stone Swelling of lower leg Surgical History History of cholecystectomy History of hysterectomy (07/21/16) LAVH, bilateral salpingectomy. Diag: Pelvic pain after endometrial ablation. Performed by Dr. James Liriano at [facility] in [place], [place]. History of thyroidectomy, subtotal (11/12/15) Left sided. Performed by Dr. Vale at [facility] in [place], [place] S/P endometrial ablation (11/06/14) Hydrothermal. Diag: Menorrhagia, Dysmenorrhea. Performed by Dr. James Liriano at [facility] in [place], [place] S/P tubal ligation (08/18/11) Performed by Dr. Kapoor at [facility] in [place], [place] Status post breast reduction (~2016) Family History Sister No problems noted. Grandmother Thyroid disease maternal Heart disease paternal Hypercholesteremia paternal Cancer Uterine Mother Cancer cervical cancer Father Heart disease Hypercholesteremia Hypertension Grandfather Heart disease paternal Family/Other Hypercholesteremia paternal aunt Heart disease Paternal aunt Denies family history of Anesthesia complication Bleeding disorder Social History Smoking and tobacco status: never smoked Alcohol intake: current Alcohol intake frequency: holidays/special occasions only Adopted: No Lives independently: No Household members: spouse and children Housing: House Marital status: Highest education level completed: High School Graduate service: No Current occupational status: employed 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 Current occupational exposures/hazards: No History of recent travel: No Leisure activites: exercise Current gender identity: Female Yamilka/Catholic: Jew Special yamilka needs: No Agree to transfusion: No Financial difficulty paying for basics: Decline to Answer Physical Exam Const: COMMON NORMALS: no acute distress, patient oriented x3, healthy appearing and alert GENERAL APPEARANCE: cooperative and comfortable HENMT: COMMON NORMALS: normocephalic HEAD & SCALP: normocephalic FACE & SINUS: no sinus tenderness MOUTH: Normal oral and palatal mucosa present THROAT: posterior oropharynx normal and uvula midline Eye: COMMON NORMALS: Equal, round and reactive pupils present PUPIL: Yes Equal, round and reactive pupils present Neck/C-Spine: COMMON NORMALS: supple GENERAL: Yes normal visual inspection Resp: COMMON NORMALS: normal respiratory effort, No retractions, No use of accessory muscles and clear to auscultation bilaterally EFFORT & INSPECTION: Yes able to speak in complete sentences, No tachypneic, No respiratory distress and No labored AUSCULTATION: clear to auscultation bilaterally Cardio: COMMON NORMALS: regular rate, regular rhythm, S1 normal heart sound present, S2 normal heart sound present, No gallops present (Cardio), No clicks present (Cardio), No murmurs present (Cardio) and Peripheral pulses 2+ throughout RATE: regular rate RHYTHM: regular rhythm HEART SOUNDS: S1 normal heart sound present and S2 normal heart sound present PERIPHERAL PULSES: Peripheral pulses 2+ throughout GI: COMMON NORMALS: Normal to inspection, nondistended, normoactive bowel sounds present, Soft to palpation, non-tender and no masses PALPATION: Yes Soft to palpation : COMMON NORMALS: Yes no CVA tenderness BLADDER/KIDNEY EXAM: Yes no CVA tenderness Back/Pelvis: COMMON NORMALS: no CVA tenderness Extremity: COMMON NORMALS: normal to inspection Neuro: COMMON NORMALS: patient oriented x3 and moves all extremities SENSORIUM/ORIENTATION: Yes alert Skin: GENERAL SKIN EXAM: dry skin Course Vital Signs: Vital signs: Vital Signs Temperature 97.3 F L 07/26/21 21:18 Pulse Rate 110 H 07/26/21 21:18 Respiratory Rate 19 H 07/26/21 21:18 Blood Pressure 183/88 07/26/21 21:18 Pulse Oximetry 97 07/26/21 21:18 MDM - COVID MDM Narrative: Medical decision making narrative: Patient is a 36-year-old female comes to the ED with upper respiratory symptoms of cough, sore throat and nasal drainage and congestion. Patient has a history of asthma. she has been having symptoms now for the past 7 days. Vitals stable. Exam of patient is benign. Rapid Covid negative, strep negative, influenza negative. Chest x-ray showed no acute findings. Patient says she lost her albuterol inhaler, so I sent her home with a prescription for new albuterol inhaler. She was also given a albuterol inhaler breathing treatment here in the ED. Patient diagnosed with upper respiratory infection with cough and congestion and she was discharged home with a prescription for azithromycin, Tessalon Perles, Medrol Dosepak. She was told to follow-up with her PCP 7 to 10 days for reevaluation. Return to ED precautions given. Patient understood and agreed with plan. Lab Data: Labs: Lab Results 07/26/21 07/26/21 07/26/21 21:35 21:35 21:35 Influenza Type A A g Negative (Negative) Influenza Type B A g Negative (Negative) SARS-CoV-2 Ag (Rap id) Negative (Negative) Group A Strep Rapi d Negative (Negative) Imaging Data: CXR: Attestation: I personally reviewed and interpreted this imaging study as follows: Radiologist's impression: [address] [address] XRay Report Signed Patient: Rimma Mariee Unit #: [id number] : 1985 Age/Sex: 36 / F ADM Date: 07/26/21 Loc: ER Room/Bed: Attending Dr: Ordering Provider/Ordering MD: Juan Lowe Date of Service: 07/26/21 Procedure(s): XR chest 1V portable [id number] Accession Number(s): [id number] Report Number: [id number] PROCEDURE INFORMATION: Exam: XR Chest Exam date and time: 07/26/2021 9:30 PM Age: 36 years old Clinical indication: Dyspnea; Prior surgery; Surgery type: Breast reduction; Additional info: Cough TECHNIQUE: Imaging protocol: XR of the chest. Views: 1 view. COMPARISON: CR (CHEST, ) 08/21/2019 9:26 AM FINDINGS: Lungs: Unremarkable. No consolidation. Pleural spaces: Unremarkable. No pleural effusion. No pneumothorax. Heart/Mediastinum: Unremarkable. No cardiomegaly. Bones/joints: Unremarkable. XR/XR chest 1V portable [id number] IMPRESSION: No acute findings. Dictated By: Bhavik Medina Signed By: Bhavik Medina Signed Date/Time: 07/26/212219 DD/ 29 COVID Results: SARS-CoV-2 Antigen (Rapid) Negative (Negative) 07/26/21 21:35 07/26/21 SARS-CoV-2 RNA (RT-PCR) Detected (NOT DETECTED) A 05/10/20 10:14 05/10/20 Nasal/Oral Coronavirus 2019 PCR Negative 04/30/20 13:35 04/30/20 Discharge Plan Discharge Patient Disposition: Home Clinical Impression: Upper respiratory infection with cough and congestion Condition: Stable Prescriptions: New methylprednisolone 4 mg tablets,dose pack See Rx Instructions .ROUTE .COMPLEX Qty: 21 RF: 0 azithromycin 250 mg tablet See Rx Instructions .ROUTE .COMPLEX Qty: 6 RF: 0 albuterol sulfate 90 mcg/actuation HFA aerosol inhaler 2 inh inhalation Q6H PRN (Reason: shortness of breath or wheezing) Qty: 8.5 RF: 0 benzonatate 100 mg capsule 100 mg PO Q6H PRN (Reason: cough) Qty: 15 RF: 0 No Action ibuprofen 200 mg capsule 400 mg PO PRN RF: 0 Hold Instructions: Doctor's Order phentermine 37.5 mg capsule 37.5 mg PO DAILY PRN (Reason: UNKNOWN) RF: 0 sumatriptan succinate 25 mg tablet See Rx Instructions PO .COMPLEX 2 Days Qty: 2 RF: 0 trazodone 50 mg tablet 75 mg PO BEDTIME RF: 0 Otc Water Pill 1 tab PO PRN RF: 0 Discharge Orders: Discharge ED (Routine); Ordered 07/26/21 Ordered By: Juan Lowe Referrals: Steph Krueger MD [Primary Care Provider] - Discharge Diet: Regular Discharge Activity: Increase activity as tolerated Patient Instructions: Upper Respiratory Infection (ED) Activity Restrictions/Additional Instructions: Follow-up with medical provider as directed in 7-10 days for reevaluation. Take medications as prescribed. Return to the ER or your medical provider if condition worsens. Please read and understand discharge instructions. Thank you for choosing [facility] for your healthcare needs today. Please realize this is an emergency room and that we are providing you with a medical screening exam and this may not be complete and all inclusive of all the testing and or work up that you may need to determine your ailment or severity of your illness. It is very important that you follow up as instructed or that you return to the Emergency Department should you have concerns or if your condition changes or worsens in any way. Coding Level of Care Code ED Strategic Communications Specialist for Tessa Gill Exam Comprehensive
[2021-07-29 00:02] LABS: Quest SARS-CoV-2 RNA NOT DETECTED (NOT DETECTED)
--- NOTE | 2021-07-29 09:27 | PC.NURSE ---
Pt notified of Negative COVID test
== END 2021-07-26 22:57 | disposition home or self-care (01) ==
PROVIDERS: Emergency Provider Physician Assistant; PCP Family Medicine
DX: J06.9 Acute upper respiratory infection, unspecified (principal); Z20.822 Contact with and (suspected) exposure to COVID-19
CPT/HCPCS: 71045; 87081; 87426; 87635; 87804; 87880; 99283; J3535

== ENCOUNTER 2022-01-19 08:34 | Emergency (ER) | payer BC, SELFPAY ==
[2022-01-19 08:48] VITALS: BP 181/93; PULSE 95; RESP 18; TEMP 36.6; O2SAT 97; BMI 30.1
--- NOTE | 2022-01-19 09:03 | CT_ITS ---
WS: [id number] CT HEAD TECHNIQUE: Noncontrast CT of the head obtained from the skullbase to the vertex. CLINICAL INFORMATION: migraine and elevated BP COMPARISON: July 31, 2020 DLP: 834.[address] scans at [facility] use at least one of these dose optimization techniques: automated e xposure control; mA and/or kV adjustment per patient size (includes targeted exams where dose is matc hed to clinical indication); or iterative reconstruction. FINDINGS: No evidence of intracranial hemorrhage or mass effect. Ventricular system and basal cisterns are august nt. No extra-axial fluid collections. No evidence of mass or mass effect. Normal elmore-white different iation. Paranasal sinuses and mastoid air cells are well aerated. .Normal visualized soft tissues. CT/CT head wo con* [id number] IMPRESSION: 1. No evidence of intracranial hemorrhage or mass effect. 2. Normal elmore-white differentiation. 3. No acute intracranial findings.
--- NOTE | 2022-01-19 09:06 | W.ED.HA ---
HPI - Headache General: Chief Complaint: Headache Stated Complaint: High B/P Time Seen by Provider: 01/19/22 08:40 History of Present Illness: Patient is a 36-year-old female comes to the ED with headache. Patient has a history of migraines. Headache started approximately 4 days ago. She endorses some nausea but has not had any episodes of emesis. She rates her headache as a 7 out of 10 and says it similar to her past migraines but has lasted longer. She took a sumatriptan yesterday and it did not help with headache. Denies any neurological symptoms. Patient did say that she has been having some elevated blood pressure readings at home and said her blood pressure before coming to the ED today was 170/107. She does not take any blood pressure medications and called her PCP to get an appointment set up with for this coming week. Associated symptoms: Reports nausea; Deny chest pain, fever(s), rash or vomiting Review of Systems Const: Denies: fever(s), chills or fatigue Eyes: Reports: photophobia; Denies: change in vision or eye discomfort ENMT: Denies: throat pain, odynophagia, nasal discharge or nasal congestion Card: Denies: chest pain, palpitations, edema, swelling of feet/ankles, dyspnea on exertion or orthopnea Resp: Denies: dyspnea, productive cough or non-productive cough GI: Reports: nausea; Denies: abdominal pain, vomiting, diarrhea, constipation or hematochezia : Denies: flank pain, dysuria or hematuria Musc: Denies: neck pain, back pain or extremity swelling Skin/Breast: Denies: rash or new lesions Neuro: Reports: headache(s); Denies: numbness in extremities or weakness in extremities PFS ED PFSH: Medical History Back pain Chronic post-traumatic stress disorder (PTSD) She reports no problematic nightmares at this time, hypervigilance, avoidance behavior, or intrusive thoughts/flashbacks. Folliculitis Generalized anxiety disorder Chronic overlying anxiety, exacerbated by recent psychosocial stressors and her 's loss of job. GERD (gastroesophageal reflux disease) Knee pain Major depressive disorder, recurrent, moderate Migraines Obesity Pain in lower limb Renal stone Swelling of lower leg Surgical History History of cholecystectomy History of hysterectomy (07/21/16) LAVH, bilateral salpingectomy. Diag: Pelvic pain after endometrial ablation. Performed by Dr. James Liriano at [facility] in [place], [place]. History of thyroidectomy, subtotal (11/12/15) Left sided. Performed by Dr. Vale at [facility] in [place], [place] S/P endometrial ablation (11/06/14) Hydrothermal. Diag: Menorrhagia, Dysmenorrhea. Performed by Dr. James Liriano at [facility] in [place], [place] S/P tubal ligation (08/18/11) Performed by Dr. Kapoor at [facility] in [place], [place] Status post breast reduction (~2016) Family History Sister No problems noted. Grandmother Thyroid disease maternal Heart disease paternal Hypercholesteremia paternal Cancer Uterine Mother Cancer cervical cancer Father Heart disease Hypercholesteremia Hypertension Grandfather Heart disease paternal Family/Other Hypercholesteremia paternal aunt Heart disease Paternal aunt Denies family history of Anesthesia complication Bleeding disorder Social History Smoking and tobacco status: never smoked Alcohol intake: current Alcohol intake frequency: holidays/special occasions only Adopted: No Lives independently: No Household members: spouse and children Housing: House Marital status: Highest education level completed: High School Graduate service: No Current occupational status: employed 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 Current occupational exposures/hazards: No History of recent travel: No Leisure activites: exercise Current gender identity: Female Yamilka/Congregation: Ep[employer] Special yamilka needs: No Agree to transfusion: No Financial difficulty paying for basics: Decline to Answer Physical Exam Const: COMMON NORMALS: no acute distress, patient oriented x3 and alert GENERAL APPEARANCE: cooperative and comfortable HENMT: COMMON NORMALS: normocephalic HEAD & SCALP: normocephalic MOUTH: Normal oral and palatal mucosa present THROAT: posterior oropharynx normal and uvula midline Eye: COMMON NORMALS: Equal, round and reactive pupils present and conjunctivae normal CONJUNCTIVA: Yes conjunctivae normal PUPIL: Yes Equal, round and reactive pupils present Neck/C-Spine: COMMON NORMALS: supple GENERAL: Yes normal visual inspection Resp: COMMON NORMALS: normal respiratory effort, No retractions, No use of accessory muscles and clear to auscultation bilaterally AUSCULTATION: clear to auscultation bilaterally Cardio: COMMON NORMALS: regular rate, regular rhythm, S1 normal heart sound present, S2 normal heart sound present, No gallops present (Cardio), No clicks present (Cardio), No murmurs present (Cardio) and Peripheral pulses 2+ throughout RATE: regular rate RHYTHM: regular rhythm HEART SOUNDS: S1 normal heart sound present and S2 normal heart sound present PERIPHERAL PULSES: Peripheral pulses 2+ throughout GI: COMMON NORMALS: Normal to inspection, nondistended, normoactive bowel sounds present, Soft to palpation, non-tender and no masses PALPATION: Yes Soft to palpation : COMMON NORMALS: Yes no CVA tenderness BLADDER/KIDNEY EXAM: Yes no CVA tenderness Back/Pelvis: COMMON NORMALS: no CVA tenderness Extremity: COMMON NORMALS: normal to inspection Neuro: COMMON NORMALS: patient oriented x3, CN's II-XII intact bilaterally, moves all extremities, no focal motor deficits and no sensory deficits noted SENSORIUM/ORIENTATION: Yes alert SENSORY EXAM: Yes extremities (intact) MOTOR EXAM: 5/5 motor strength present throughout Skin: GENERAL SKIN EXAM: dry skin Course Reevaluation(s): Reevaluation #1: After patient received IV migraine cocktail meds her headache improved greatly. She now rates her headache a 4 out of 10 is ready to be discharged home to rest. Time: 10:10 Vital Signs: Vital signs: Vital Signs Temperature 97.8 F 01/19/22 08:48 Pulse Rate 95 01/19/22 08:48 Respiratory Rate 18 01/19/22 08:48 Blood Pressure 181/93 01/19/22 08:48 Pulse Oximetry 97 01/19/22 08:48 MDM - Headache Medical Decision Making Patient is a 36-year-old female comes in the ED with a migraine. Migraine has lasted for the last 4 days. Migraine lasting longer than usual. Patient endorses having some higher blood pressure readings at home as well. Patient took sumatriptan at home and it did not help. She is having nausea and photophobia. Vitals stable. Exam of patient is unremarkable and no neurodeficits noted. CT of head showed no acute findings. Labs were unremarkable. Patient was given IV migraine cocktail of meds and her migraine improved greatly. Patient was diagnosed with a migraine and was discharged home. She was sent home with a prescription for hydrochlorothiazide to use as needed for any elevated blood pressure readings. She is told to follow-up with her PCP in the next week for reevaluation. Return to ED precautions given. Patient understood and agreed with plan. Lab Data I reviewed the patient's lab results. : 01/19/22 09:15 01/19/22 09:[address] 01/19/22 09:03 IMPRESSION: 1. No evidence of intracranial hemorrhage or mass effect. 2. Normal elmore-white differentiation. 3. No acute intracranial findings. Laboratory Results WBC 7.6 10^3/uL (4.0-10.0) 01/19/22 09:15 RBC 4.68 10^6/uL (4.1-5.3) 01/19/22 09:15 Hgb 14.7 g/dL (11.5-15.3) 01/19/22 09:15 Hct 42.3 % (37.0-47.0) 01/19/22 09:15 MCV 90.4 fl (81-99) 01/19/22 09:15 MCH 31.4 pg (28.0-34.0) 01/19/22 09:15 MCHC 34.8 g/dL (30.0-36.0) 01/19/22 09:15 RDW 11.9 % (12.1-15.1) L 01/19/22 09:15 Plt Count 477 10^3/cmm (130-400) H 01/19/22 09:15 MPV 8.3 fL (7.4-10.4) 01/19/22 09:15 Neut % (Auto) 63.4 % 01/19/22 09:15 Lymph % (Auto) 27.8 % 01/19/22 09:15 [place] % (Auto) 6.4 % 01/19/22 09:15 Eos % (Auto) 0.9 % 01/19/22 09:15 Baso % (Auto) 0.8 % 01/19/22 09:15 Neut # (Auto) 4.84 10^3/uL (1.8-7.7) 01/19/22 09:15 Lymph # (Auto) 2.1 10^3/uL (0.8-4.8) 01/19/22 09:15 [place] # (Auto) 0.5 10^3/uL (0.2-0.9) 01/19/22 09:15 Eos # (Auto) 0.1 10^3/uL (0.0-0.8) 01/19/22 09:15 Baso # (Auto) 0.1 10^3/uL (0.0-0.1) 01/19/22 09:15 Nucleated RBC % (auto) 0 % 01/19/22 09:15 Nucleated RBCs # 0.0 /100WBC 01/19/22 09:15 Sodium 138 mmol/L (136-145) 01/19/22 09:15 Potassium 3.4 mmol/L (3.5-5.1) L 01/19/22 09:15 Chloride 102 mmol/L (98-107) 01/19/22 09:15 Carbon Dioxide 25 mmol/L (22-29) 01/19/22 09:15 Anion Gap 14.4 (5-19) 01/19/22 09:15 BUN 9 mg/dL (6-20) 01/19/22 09:15 Creatinine 0.7 mg/dL (0.5-0.9) 01/19/22 09:15 GFR Calculation 94.7 mL/min (90-130) 01/19/22 09:15 Glucose 115 mg/dL (65-115) 01/19/22 09:15 Calculated Osmolality 286 mOsm/kg (285-295) 01/19/22 09:15 Calcium 9.0 mg/dL (8.5-10.5) 01/19/22 09:15 Discharge Plan Discharge Patient Disposition: Home Clinical Impression: Migraine Qualifiers: Migraine type: without aura Status migrainosus presence: with status migrainosus Intractability: not intractable Qualified Code(s): G43.001 - Migraine without aura, not intractable, with status migrainosus Condition: Stable Prescriptions: New hydrochlorothiazide 25 mg tablet 25 mg PO DAILY PRN (Reason: hypertension) Qty: 10 0RF No Action ibuprofen 200 mg capsule 400 mg PO PRN 0RF Hold Instructions: Doctor's Order phentermine 37.5 mg capsule 37.5 mg PO DAILY PRN (Reason: UNKNOWN) 0RF Rx Instructions: must administer 30 minutes before or 1-2 hours after breakfast *SEE PHARMACY COMMENTS* sumatriptan succinate 25 mg tablet See Rx Instructions PO .COMPLEX 2 Days Qty: 2 0RF Rx Instructions: take 1 tab at onset of headache; if no relief may repeat 1 tab after at least 2 hrs trazodone 50 mg tablet 75 mg PO BEDTIME 0RF Otc Water Pill 1 tab PO PRN 0RF methylprednisolone 4 mg tablets,dose pack See Rx Instructions .ROUTE .COMPLEX Qty: 21 0RF Rx Instructions: orally per package directions azithromycin 250 mg tablet See Rx Instructions .ROUTE .COMPLEX Qty: 6 0RF Rx Instructions: take 500 mg today (day 1), then 250 mg for 4 days (days 2-5) albuterol sulfate 90 mcg/actuation HFA aerosol inhaler 2 inh inhalation Q6H PRN (Reason: shortness of breath or wheezing) Qty: 8.5 0RF benzonatate 100 mg capsule 100 mg PO Q6H PRN (Reason: cough) Qty: 15 0RF Discharge Orders: Discharge ED (Routine); Ordered 01/19/22 Ordered By: Juan Lowe Referrals: Steph Krueger MD [Primary Care Provider] - Discharge Diet: Regular Discharge Activity: Increase activity as tolerated Patient Instructions: Migraine Headache (ED) Activity Restrictions/Additional Instructions: Follow-up with medical provider as directed in the next 7 to 10 days for reevaluation. Take medications as prescribed. Return to the ER or your medical provider if condition worsens. Please read and understand discharge instructions. Thank you for choosing [facility] for your healthcare needs today. Please realize this is an emergency room and that we are providing you with a medical screening exam and this may not be complete and all inclusive of all the testing and or work up that you may need to determine your ailment or severity of your illness. It is very important that you follow up as instructed or that you return to the Emergency Department should you have concerns or if your condition changes or worsens in any way. Coding Level of Care Code ED Bean Snapper for Tessa Gill Exam Comprehensive
[2022-01-19] MEDS: sodium chloride 0.9% 500 ML 999 ML IV (09:22)
[2022-01-19] MEDS: ketorolac 30 mg/mL INJ IVP (09:23)
[2022-01-19] MEDS: dexamethasone 10 mg/mL INJ IVP (09:23)
[2022-01-19] MEDS: metoclopramide 5 mg/mL SDV 2 mL 10 MG IVP (09:23)
[2022-01-19] MEDS: diphenhydrAMINE 50 mg/mL SDV 1mL 25 MG IVP (09:23)
[2022-01-19 09:28] LABS: Basophils # 0.1 10^3/uL (0.0-0.1); Basophils % 0.8 %; Eosinophils # 0.1 10^3/uL (0.0-0.8); Eosinophils % 0.9 %; Hematocrit 42.3 % (37.0-47.0); Hemoglobin 14.7 g/dL (11.5-15.3); Lymphocytes # 2.1 10^3/uL (0.8-4.8); Lymphocytes % 27.8 %; Mean Corpuscular HGB Conc 34.8 g/dL (30.0-36.0); Mean Corpuscular Hemoglobin 31.4 pg (28.0-34.0); Mean Corpuscular Volume 90.4 fl (81-99); Mean Platelet Volume 8.3 fL (7.4-10.4); Monocytes # 0.5 10^3/uL (0.2-0.9); Monocytes % 6.4 %; Neutrophils # 4.84 10^3/uL (1.8-7.7); Neutrophils % 63.4 %; Nucleated Red Blood Cells % 0 %; Platelet Count 477 10^3/cmm (130-400); Red Blood Count 4.68 10^6/uL (4.1-5.3); Red Cell Distribution Width 11.9 % (12.1-15.1); White Blood Count 7.6 10^3/uL (4.0-10.0)
[2022-01-19 09:46] LABS: Anion Gap 14.4 (5-19); Blood Urea Nitrogen 9 mg/dL (6-20); Carbon Dioxide 25 mmol/L (22-29); Chloride 102 mmol/L (98-107); Glomerular Filtration Rate 94.7 mL/min (90-130); Glucose 115 mg/dL (65-115); Osmolality Calculated 286 mOsm/kg (285-295); Potassium 3.4 mmol/L (3.5-5.1); Sodium 138 mmol/L (136-145)
[2022-01-19 10:26] VITALS: BP 150/98; PULSE 79; RESP 14; O2SAT 97
[2022-01-19 10:28] VITALS: BP 150/98; PULSE 79; RESP 14; O2SAT 97
== END 2022-01-19 10:29 | disposition home or self-care (01) ==
PROVIDERS: Emergency Provider Physician Assistant; PCP Family Medicine
DX: G43.001 Migraine without aura, not intractable, with status migrainosus (principal)
CPT/HCPCS: 70450; 80048; 85025; 96374; 96375; 99284; J1100; J1200; J1885; J2765; J7040

== ENCOUNTER → 2022-03-17 14:54 | Outpatient (BNVA) | payer BC, SELFPAY | PROVIDERS: PCP Family Medicine; Visit Provider Emergency Medicine | DX: J06.9 Acute upper respiratory infection, unspecified (principal); J40 Bronchitis, not specified as acute or chronic | CPT/HCPCS: 87426 ==

== ENCOUNTER 2022-05-25 06:46 | Emergency (ER) | payer BC, SELFPAY ==
[2022-05-25 06:47] VITALS: BP 164/96; PULSE 98; RESP 16; TEMP 36.5; O2SAT 99; BMI 29.7
--- NOTE | 2022-05-25 07:00 | XRR_ITS ---
PROCEDURE INFORMATION: Exam: XR Chest Exam date and time: 05/25/2022 7:32 AM Age: 36 years old Clinical indication: Cough and dyspnea; Additional info: Dyspnea/cough TECHNIQUE: Imaging protocol: Radiologic exam of the chest. Views: 1 view. COMPARISON: CR XR chest 1V portable [id number] 07/26/2021 9:43 PM FINDINGS: Lungs: Unremarkable. No consolidation. Pleural spaces: Unremarkable. No pleural effusion. No pneumothorax. Heart/Mediastinum: Unremarkable. No cardiomegaly. Bones/joints: Unremarkable. XR/XR chest 1V portable [id number] IMPRESSION: No acute findings.
[2022-05-25 07:22] LABS: Basophils # 0.1 10^3/uL (0.0-0.1); Basophils % 0.6 %; Eosinophils # 0.1 10^3/uL (0.0-0.8); Eosinophils % 1.1 %; Hematocrit 41.1 % (37.0-47.0); Hemoglobin 14.2 g/dL (11.5-15.3); Lymphocytes # 2.5 10^3/uL (0.8-4.8); Lymphocytes % 26.6 %; Mean Corpuscular HGB Conc 34.5 g/dL (30.0-36.0); Mean Corpuscular Volume 92.6 fl (81-99); Mean Platelet Volume 8.6 fL (7.4-10.4); Monocytes # 0.6 10^3/uL (0.2-0.9); Monocytes % 5.9 %; Neutrophils # 6.12 10^3/uL (1.8-7.7); Neutrophils % 65.2 %; Nucleated Red Blood Cells % 0 %; Platelet Count 421 10^3/cmm (130-400); Red Blood Count 4.44 10^6/uL (4.1-5.3); Red Cell Distribution Width 11.9 % (12.1-15.1); White Blood Count 9.4 10^3/uL (4.0-10.0)
--- NOTE | 2022-05-25 07:24 | ED_ITS ---
HPI - Chest Pain General: Chief Complaint: Chest Pain Stated Complaint: Chest Pain Time Seen by Provider: 05/25/22 06:58 Source: patient Mode of arrival: ambulatory History of Present Illness: 36 yo female presents complaining of midsternal chest pain and tightness shortness of breath that woke her up at 3 AM this morning. She is actually been having little episodes like this and she was set up to see cardiology and have a awake overnight monitor placed. MD complaint: chest pain Onset (ago): minute(s) Timing of current episode: episodic Prior episodes: Yes Onset: during rest Pain location: substernal Pain radiation: none Severity: moderate Quality: sharp Relieving factors: nothing Exacerbating factors: nothing Associated symptoms: Deny abdominal pain, diaphoresis, dyspnea, fever(s), leg edema, nausea, palpitations, sense of impending doom, syncope or vomiting Treatment prior to arrival: none Review of Systems Const: Denies: fever(s), chills, fatigue, malaise or diaphoresis ENMT: Denies: throat pain, ear or mastoid pain, nasal discharge or nasal congestion Card: Reports: chest pain; Denies: palpitations, irregular heart rhythm, edema or syncope Resp: Denies: dyspnea, productive cough, non-productive cough or wheezing GI: Denies: abdominal pain, nausea or vomiting : Denies: flank pain, difficulty voiding, dysuria, urinary frequency or urinary urgency Skin/Breast: Denies: rash or pruritus [facility] ED PFSH: Medical History Back pain Chronic post-traumatic stress disorder (PTSD) She reports no problematic nightmares at this time, hypervigilance, avoidance behavior, or intrusive thoughts/flashbacks. Folliculitis Generalized anxiety disorder Chronic overlying anxiety, exacerbated by recent psychosocial stressors and her 's loss of job. GERD (gastroesophageal reflux disease) Knee pain Major depressive disorder, recurrent, moderate Migraines Obesity Pain in lower limb Renal stone Swelling of lower leg Surgical History History of cholecystectomy History of hysterectomy (07/21/16) LAVH, bilateral salpingectomy. Diag: Pelvic pain after endometrial ablation. Performed by Dr. James Liriano at [facility] in [facility]. History of thyroidectomy, subtotal (11/12/15) Left sided. Performed by Dr. Vale at [facility] in [place], [place] S/P endometrial ablation (11/06/14) Hydrothermal. Diag: Menorrhagia, Dysmenorrhea. Performed by Dr. James Liriano at [facility] in [place], [place] S/P tubal ligation (08/18/11) Performed by Dr. Kapoor at [facility] in [place], [place] Status post breast reduction (~2016) Family History Sister No problems noted. Grandmother Thyroid disease maternal Heart disease paternal Hypercholesteremia paternal Cancer Uterine Mother Cancer cervical cancer Father Heart disease Hypercholesteremia Hypertension Grandfather Heart disease paternal Family/Other Hypercholesteremia paternal aunt Heart disease Paternal aunt Denies family history of Anesthesia complication Bleeding disorder Social History Smoking and tobacco status: never smoked Alcohol intake: current Alcohol intake frequency: holidays/special occasions only Adopted: No Lives independently: No Household members: spouse and children Housing: House Marital status: Highest education level completed: High School Graduate service: No Current occupational status: employed 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 Current occupational exposures/hazards: No History of recent travel: No Leisure activites: exercise Current gender identity: Female Yamilka/Hinduism: Christianity Special yamilka needs: No Agree to transfusion: No Financial difficulty paying for basics: Decline to Answer Physical Exam Const: GENERAL APPEARANCE: cooperative and comfortable ORIENTATION/CONSCIO USNESS: Yes awake, Yes oriented to person, Yes oriented to place and Yes oriented to time HENMT: COMMON NORMALS: normocephalic, atraumatic and hearing grossly normal bilaterally HEAD & SCALP: normocephalic and atraumatic Resp: COMMON NORMALS: normal respiratory effort, No retractions, No use of accessory muscles and clear to auscultation bilaterally AUSCULTATION: clear to auscultation bilaterally Cardio: COMMON NORMALS: regular rate, regular rhythm and No murmurs present (Cardio) RATE: regular rate RHYTHM: regular rhythm GI: COMMON NORMALS: Soft to palpation and No hepatosplenomegaly present AUSCULTATION: Yes normoactive bowel sounds PALPATION: Yes Soft to palpation, No Tenderness to palpation present (GI), No Guarding due to palpation present (GI) and Yes No hepatosplenomegaly present Extremity: COMMON NORMALS: normal to inspection, capillary refill normal, no clubbing, cyanosis or edema, no calf tenderness and no pedal edema Neuro: SENSORIUM/ORIENTATION: Yes oriented to person, Yes oriented to place and Yes oriented to time Skin: COMMON NORMALS: no rashes or lesions noted GENERAL SKIN EXAM: no rashes or lesions noted Course Vital Signs: Vital signs: Vital Signs Temperature 97.7 F 05/25/22 08:40 Pulse Rate 98 05/25/22 06:47 Respiratory Rate 16 05/25/22 06:47 Blood Pressure 164/96 05/25/22 06:47 Pulse Oximetry 99 05/25/22 06:47 Oxygen Delivery Me thod 05/25/22 06:47 MDM - Chest Pain Medical Decision Making Imaging reviewed labs and EKG reviewed all unremarkable. Discharge patient home start Protonix she has a colonoscopy that they are doing later this week recommend that they consider doing an EGD in the same setting follow-up with primary care discussed dietary things to avoid. Medical Records I reviewed the patient's medical records. Lab Data I reviewed the patient's lab results. : 05/25/22 06:55 05/25/22 06:55 Radiology Impressions Chest X-Ray 05/25/22 07:00 IMPRESSION: No acute findings. Laboratory Results WBC 9.4 10^3/uL (4.0-10.0) 05/25/22 06:55 RBC 4.44 10^6/uL (4.1-5.3) 05/25/22 06:55 Hgb 14.2 g/dL (11.5-15.3) 05/25/22 06:55 Hct 41.1 % (37.0-47.0) 05/25/22 06:55 MCV 92.6 fl (81-99) 05/25/22 06:55 MCH 32.0 pg (28.0-34.0) 05/25/22 06:55 MCHC 34.5 g/dL (30.0-36.0) 05/25/22 06:55 RDW 11.9 % (12.1-15.1) L 05/25/22 06:55 Plt Count 421 10^3/cmm (130-400) H 05/25/22 06:55 MPV 8.6 fL (7.4-10.4) 05/25/22 06:55 Neut % (Auto) 65.2 % 05/25/22 06:55 Lymph % (Auto) 26.6 % 05/25/22 06:55 [place]ford % (Auto) 5.9 % 05/25/22 06:55 Eos % (Auto) 1.1 % 05/25/22 06:55 Baso % (Auto) 0.6 % 05/25/22 06:55 Neut # (Auto) 6.12 10^3/uL (1.8-7.7) 05/25/22 06:55 Lymph # (Auto) 2.5 10^3/uL (0.8-4.8) 05/25/22 06:55 Blackford # (Auto) 0.6 10^3/uL (0.2-0.9) 05/25/22 06:55 Eos # (Auto) 0.1 10^3/uL (0.0-0.8) 05/25/22 06:55 Baso # (Auto) 0.1 10^3/uL (0.0-0.1) 05/25/22 06:55 Nucleated RBC % (auto) 0 % 05/25/22 06:55 Nucleated RBCs # 0.0 /100WBC 05/25/22 06:55 Sodium 138 mmol/L (136-145) 05/25/22 06:55 Potassium 3.9 mmol/L (3.5-5.1) 05/25/22 06:55 Chloride 103 mmol/L (98-107) 05/25/22 06:55 Carbon Dioxide 25 mmol/L (22-29) 05/25/22 06:55 Anion Gap 13.9 (5-19) 05/25/22 06:55 BUN 11 mg/dL (6-20) 05/25/22 06:55 Creatinine 0.7 mg/dL (0.5-0.9) 05/25/22 06:55 GFR Calculation 94.7 mL/min (90-130) 05/25/22 06:55 Glucose 99 mg/dL (65-115) 05/25/22 06:55 Calculated Osmolality 285 mOsm/kg (285-295) 05/25/22 06:55 Calcium 8.3 mg/dL (8.5-10.5) L 05/25/22 06:55 Total Bilirubin 0.5 mg/dL (0.15-1.2) 05/25/22 06:55 AST 14 U/L (0-32) 05/25/22 06:55 ALT 14 U/L (0-33) 05/25/22 06:55 Alkaline Phosphatase 78 U/L (35-105) 05/25/22 06:55 Troponin T Baseline 6 ng/L (0-10) 05/25/22 06:55 Troponin T 120 Minute 6.00 ng/L (0-10) 05/25/22 09:10 Total Protein 7.0 g/dL (6.6-8.7) 05/25/22 06:55 Albumin 3.9 g/dL (3.5-5.2) 05/25/22 06:55 Globulin 3.1 g/dL (1.3-4.6) 05/25/22 06:55 Discharge Plan Discharge Patient Disposition: Home Clinical Impression: Atypical chest pain Condition: Stable Prescriptions: New Protonix 40 mg tablet,delayed release (DR/EC) 40 mg PO QAM Qty: 30 0RF No Action ibuprofen 200 mg capsule 800 mg PO Q8H PRN (Reason: Pain) Hold Instructions: Doctor's Order trazodone 50 mg tablet 75 mg PO BEDTIME PRN (Reason: Sleep) albuterol sulfate 90 mcg/actuation HFA aerosol inhaler 2 inh inhalation Q6H PRN (Reason: shortness of breath or wheezing) Qty: 8.5 0RF phentermine 37.5 mg tablet 37.5 mg PO .3-4 TIMES A WEEK hydrochlorothiazide 25 mg tablet 25 mg PO QAM Discharge Orders: Discharge ED (Routine); Ordered 05/25/22 Ordered By: Alphonso Schofield Referrals: Steph Krueger MD [Primary Care Provider] - Discharge Diet: As Directed Discharge Activity: Resume usual activity Patient Instructions: Opioid Safety, Pain Management Activity Restrictions/Additional Instructions: Avoid spicy foods tomato-based products caffeinated products alcohol and carbonated beverages. Start Protonix 40 p.o. daily. Follow-up with your primary care doctor if persistent or not improving Coding Level of Care Code ED Sustainability Engineer for Chg Fwd Exam Detailed
[2022-05-25 07:43] LABS: Alanine Aminotransferase 14 U/L (0-33); Albumin Level 3.9 g/dL (3.5-5.2); Alkaline Phosphatase 78 U/L (35-105); Anion Gap 13.9 (5-19); Aspartate Amino Transferase 14 U/L (0-32); Blood Urea Nitrogen 11 mg/dL (6-20); Calcium 8.3 mg/dL (8.5-10.5); Carbon Dioxide 25 mmol/L (22-29); Chloride 103 mmol/L (98-107); Globulin 3.1 g/dL (1.3-4.6); Glomerular Filtration Rate 94.7 mL/min (90-130); Glucose 99 mg/dL (65-115); Osmolality Calculated 285 mOsm/kg (285-295); Potassium 3.9 mmol/L (3.5-5.1); Sodium 138 mmol/L (136-145); Total Bilirubin 0.5 mg/dL (0.15-1.2)
[2022-05-25 08:40] VITALS: TEMP 36.5
--- NOTE | 2022-05-25 08:59 | ECG_ITS ---
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 Measurements Intervals [place] Rate: 91 P: 45 MN: 155 QRS: 37 QRSD: 86 T: 38 QT: 379 QTc: 468 Interpretive Statements SINUS RHYTHM POSSIBLE LEFT ATRIAL ENLARGEMENT [-0.1mV P-WAVE IN V1/V2] No previous ECG available for comparison Electronically Signed On 05-25-2022 21:20:33 CDT by Rolando Bartlett M.D. [email or web address] hospital [id number]
[2022-05-25 09:36] LABS: Troponin(5th) Baseline 6 ng/L (0-10)
[2022-05-25] MEDS: acetaminophen 500 mg Tablet 1000 MG PO (09:54)
[2022-05-25 09:55] LABS: Troponin 5 2HR Delta 0 ABS# (0-10)
[2022-05-25] MEDS: lidocaine 2% viscous 15 ML, aluminum-mag hydrox-simethicon 30 ML, sucralfate oral liq 1 GM PO (09:57)
[2022-05-25 09:58] VITALS: BP 150/93; PULSE 91; RESP 18; O2SAT 98
== END 2022-05-25 10:00 | disposition home or self-care (01) ==
PROVIDERS: Emergency Provider Family Medicine; PCP Family Medicine
DX: R07.89 Other chest pain (principal)
CPT/HCPCS: 36415; 71045; 80053; 84484; 85025; 93005; 99285

== ENCOUNTER 2022-07-13 09:25 | Emergency (ER) | payer BC, SELFPAY ==
--- NOTE | 2022-07-13 09:33 | XR_ITS ---
WS: [id number] XR chest 1V portable [id number] REASON FOR EXAM: fever and cough FINDINGS: The chest is unchanged compared to previous examinations of 07/26/2021 and 08/21/2019. Calcified granulomatous disease bilaterally. No acute pulmonary parenchymal or pleural abnormality is identified. The heart and mediastinum are within normal limits. The bony thorax is without significant abnormality. XR/XR chest 1V portable [id number] IMPRESSION: Stable chest without acute abnormality.
[2022-07-13 09:52] VITALS: BP 159/107; PULSE 91; RESP 16; TEMP 36.9; O2SAT 99; BMI 28.6
--- NOTE | 2022-07-13 12:12 | W.ED.URI ---
HPI - URI/Sore Throat General: Chief Complaint: Fever Stated Complaint: fever, cough, SOB Time Seen by Provider: 07/13/22 09:36 History of Present Illness: Patient is a 37-year-old female who comes to the ED with upper respiratory symptoms. She is complaining of having a cough that is nonproductive, fever, chills, body aches, nasal drainage and congestion. Patient's symptoms started 2 days ago. Associated symptoms: Reports chills, fever(s) and nasal congestion; Deny abdominal pain, chest pain, diarrhea, headache(s), nausea or vomiting Review of Systems Const: Reports: fever(s), chills and body aches; Denies: fatigue Eyes: Denies: change in vision or eye discomfort ENMT: Reports: nasal discharge and nasal congestion; Denies: throat pain or odynophagia Card: Denies: chest pain, palpitations, edema, swelling of feet/ankles, dyspnea on exertion or orthopnea Resp: Reports: non-productive cough; Denies: dyspnea or productive cough GI: Denies: abdominal pain, nausea, vomiting, diarrhea, constipation or hematochezia : Denies: flank pain, dysuria or hematuria Musc: Denies: neck pain, back pain or extremity swelling Skin/Breast: Denies: rash or new lesions Neuro: Denies: headache(s), numbness in extremities or weakness in extremities PFS ED PFSH: Medical History Back pain Chronic post-traumatic stress disorder (PTSD) She reports no problematic nightmares at this time, hypervigilance, avoidance behavior, or intrusive thoughts/flashbacks. Folliculitis Generalized anxiety disorder Chronic overlying anxiety, exacerbated by recent psychosocial stressors and her 's loss of job. GERD (gastroesophageal reflux disease) Knee pain Major depressive disorder, recurrent, moderate Migraines Obesity Pain in lower limb Renal stone Swelling of lower leg Surgical History History of cholecystectomy History of hysterectomy (07/21/16) LAVH, bilateral salpingectomy. Diag: Pelvic pain after endometrial ablation. Performed by Dr. James Liriano at [facility] in [place], [place]. History of thyroidectomy, subtotal (11/12/15) Left sided. Performed by Dr. Vale at [facility] in [place], [place] S/P endometrial ablation (11/06/14) Hydrothermal. Diag: Menorrhagia, Dysmenorrhea. Performed by Dr. James Liriano at [facility] in [place], [place] S/P tubal ligation (08/18/11) Performed by Dr. Kapoor at [facility] in [place], [place] Status post breast reduction (~2016) Family History Sister No problems noted. Grandmother Thyroid disease maternal Heart disease paternal Hypercholesteremia paternal Cancer Uterine Mother Cancer cervical cancer Father Heart disease Hypercholesteremia Hypertension Grandfather Heart disease paternal Family/Other Hypercholesteremia paternal aunt Heart disease Paternal aunt Denies family history of Anesthesia complication Bleeding disorder Social History Smoking and tobacco status: never smoked Alcohol intake: current Alcohol intake frequency: holidays/special occasions only Adopted: No Lives independently: No Household members: spouse and children Housing: House Marital status: Highest education level completed: High School Graduate service: No Current occupational status: employed 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 Current occupational exposures/hazards: No History of recent travel: No Leisure activites: exercise Current gender identity: Female Yamilka/Anabaptist: Religious Special yamilka needs: No Agree to transfusion: No Financial difficulty paying for basics: Decline to Answer Physical Exam Const: COMMON NORMALS: patient oriented x3 and alert GENERAL APPEARANCE: cooperative HENMT: COMMON NORMALS: normocephalic HEAD & SCALP: normocephalic MOUTH: Normal oral and palatal mucosa present THROAT: posterior oropharynx normal and uvula midline Eye: COMMON NORMALS: Equal, round and reactive pupils present and conjunctivae normal CONJUNCTIVA: Yes conjunctivae normal PUPIL: Yes Equal, round and reactive pupils present Neck/C-Spine: COMMON NORMALS: supple GENERAL: Yes normal visual inspection Resp: COMMON NORMALS: normal respiratory effort, No retractions, No use of accessory muscles and clear to auscultation bilaterally AUSCULTATION: clear to auscultation bilaterally Cardio: COMMON NORMALS: regular rate, regular rhythm, S1 normal heart sound present, S2 normal heart sound present, No gallops present (Cardio), No clicks present (Cardio), No murmurs present (Cardio) and Peripheral pulses 2+ throughout RATE: regular rate RHYTHM: regular rhythm HEART SOUNDS: S1 normal heart sound present and S2 normal heart sound present PERIPHERAL PULSES: Peripheral pulses 2+ throughout GI: COMMON NORMALS: Normal to inspection, nondistended, normoactive bowel sounds present, Soft to palpation, non-tender and no masses PALPATION: Yes Soft to palpation : COMMON NORMALS: Yes no CVA tenderness BLADDER/KIDNEY EXAM: Yes no CVA tenderness Back/Pelvis: COMMON NORMALS: no CVA tenderness Extremity: COMMON NORMALS: normal to inspection Neuro: COMMON NORMALS: patient oriented x3 SENSORIUM/ORIENTATION: Yes alert GAIT: Yes Normal gait present Skin: GENERAL SKIN EXAM: dry skin Course Vital Signs: Vital signs: Vital Signs Temperature 98.4 F 07/13/22 09:52 Pulse Rate 91 07/13/22 09:52 Respiratory Rate 16 07/13/22 09:52 Blood Pressure 159/107 07/13/22 09:52 Pulse Oximetry 99 07/13/22 09:52 Oxygen Delivery Me thod 07/13/22 09:52 MDM - URI/Sore Throat Medical Decision Making Patient is a 37-year-old female comes to the ED with upper respiratory symptoms. She is in having a fever, cough, body aches and nasal congestion/drainage. Vitals are stable. Exam is benign. Chest x-ray shows no acute findings. COVID test is negative. Patient was diagnosed with viral upper respiratory infection with cough and discharged home with a prescription for Medrol Dosepak given her history of asthma. Return to ED precautions given. Follow-up with PCP in the next week for reevaluation. Patient understood and agreed with plan. Lab Data I reviewed the patient's lab results. Radiology Impressions Chest X-Ray 07/13/22 09:33 IMPRESSION: Stable chest without acute abnormality. Laboratory Results SARS-CoV-2 Ag (Rapid) negative (Negative) 07/13/22 11:31 Discharge Plan Discharge Patient Disposition: Home Clinical Impression: Viral URI with cough Condition: Stable Prescriptions: New methylprednisolone 4 mg tablets,dose pack See Rx Instructions .ROUTE .COMPLEX Qty: 21 0RF Rx Instructions: orally per package directions No Action ibuprofen 200 mg capsule 800 mg PO Q8H PRN (Reason: Pain) Hold Instructions: Doctor's Order trazodone 50 mg tablet 75 mg PO BEDTIME PRN (Reason: Sleep) albuterol sulfate 90 mcg/actuation HFA aerosol inhaler 2 inh inhalation Q6H PRN (Reason: shortness of breath or wheezing) Qty: 8.5 0RF phentermine 37.5 mg tablet 37.5 mg PO .3-4 TIMES A WEEK hydrochlorothiazide 25 mg tablet 25 mg PO QAM Protonix 40 mg tablet,delayed release (DR/EC) 40 mg PO QAM Qty: 30 0RF Discharge Orders: Discharge ED (Routine); Ordered 07/13/22 Ordered By: Juan Lowe Referrals: Steph Krueger MD [Primary Care Provider] - Discharge Diet: Regular Discharge Activity: Increase activity as tolerated Patient Instructions: Upper Respiratory Infection (DC) Activity Restrictions/Additional Instructions: Follow-up with medical provider as directed in the next 5-7 days evaluation. Take medications as prescribed. Return to the ER or your medical provider if condition worsens. Please read and understand discharge instructions. Thank you for choosing [facility] for your healthcare needs today. Please realize this is an emergency room and that we are providing you with a medical screening exam and this may not be complete and all inclusive of all the testing and or work up that you may need to determine your ailment or severity of your illness. It is very important that you follow up as instructed or that you return to the Emergency Department should you have concerns or if your condition changes or worsens in any way. Coding Level of Care Code ED Cable Machine Operator for Tessa Gill Exam Comprehensive
[2022-07-13 12:25] LABS: SARS Covid-2 Antigen negative (Negative)
[2022-07-13] MEDS: ketorolac 60 mg/2 mL INJ IM (12:45)
== END 2022-07-13 12:45 | disposition home or self-care (01) ==
PROVIDERS: Emergency Provider Physician Assistant; PCP Family Medicine
DX: J06.9 Acute upper respiratory infection, unspecified (principal)
CPT/HCPCS: 71045; 87426; 96372; 99284; J1885

== ENCOUNTER → 2022-09-13 17:16 | Outpatient (BNVA) | payer BC, SELFPAY | PROVIDERS: PCP Family Medicine; Visit Provider Emergency Medicine | DX: M25.511 Pain in right shoulder (principal); S49.91XA Unspecified injury of right shoulder and upper arm, initial encounter; W19.XXXA Unspecified fall, initial encounter | CPT/HCPCS: 73030 ==

== ENCOUNTER 2022-12-21 07:38 | Emergency (ER) | payer BC, SELFPAY ==
--- NOTE | 2022-12-21 07:40 | W.ED.HA ---
HPI - Headache General: Chief Complaint: Headache Stated Complaint: headache Time Seen by Provider: 12/21/22 07:38 Source: patient Mode of arrival: ambulatory Limitations: no limitations History of Present Illness: Patient is a 37-year-old female presents to ED today for treatment of a headache. Patient states she does have a history of headaches/migraines although has not had one in quite a while. She states headache started today after taking her dogs outside. She states her headache feels like previous migraines. She reports previous CT and CTA scans of her head which were all normal. She states she used to take Imitrex at home but experienced abnormal/unwanted side effects so this was discontinued. She is not on any type of prophylactic or abortive medications. She admittedly does not get migraines very frequently. She is having sensitivity to light and sound as well as nausea. Denies any neurologic deficits. MD elicited complaint: headache Pertinent past history: migraines Onset (ago): hour(s) Severity: similar to previous episodes Pain scale (0-10): 8 Exacerbating factors: light and noise Relieving factors: nothing Associated symptoms: Reports nausea; Deny chest pain, confusion, fever(s), malaise, rash or vomiting Treatments prior to arrival: none Review of Systems Const: Denies: fever(s), chills, body aches, fatigue or malaise Eyes: Reports: photophobia; Denies: change in vision, blurry vision, floaters or seeing flashes Card: Denies: chest pain Resp: Denies: dyspnea GI: Reports: nausea; Denies: vomiting Musc: Denies: neck pain, back pain, extremity pain or joint pain Skin/Breast: Denies: rash Neuro: Reports: headache(s); Denies: numbness in extremities, weakness in extremities, sensory changes, lack of coordination, difficulty walking, dizziness, vertigo, confusion, behavioral changes, Slurred speech present or difficulty communicating thoughts PFS ED PFSH: Medical History Back pain Chronic post-traumatic stress disorder (PTSD) She reports no problematic nightmares at this time, hypervigilance, avoidance behavior, or intrusive thoughts/flashbacks. Folliculitis Generalized anxiety disorder Chronic overlying anxiety, exacerbated by recent psychosocial stressors and her 's loss of job. GERD (gastroesophageal reflux disease) Knee pain Major depressive disorder, recurrent, moderate Migraines Obesity Pain in lower limb Renal stone Swelling of lower leg Surgical History History of cholecystectomy History of hysterectomy (07/21/16) LAVH, bilateral salpingectomy. Diag: Pelvic pain after endometrial ablation. Performed by Dr. James Liriano at [facility] in [place], [place]. History of thyroidectomy, subtotal (11/12/15) Left sided. Performed by Dr. Vale at [facility] in [place], [place] S/P endometrial ablation (11/06/14) Hydrothermal. Diag: Menorrhagia, Dysmenorrhea. Performed by Dr. James Liriano at [facility] in [place], [place] S/P tubal ligation (08/18/11) Performed by Dr. Kapoor at [facility] in [place], [place] Status post breast reduction (~2016) Family History Sister No problems noted. Grandmother Thyroid disease maternal Heart disease paternal Hypercholesteremia paternal Cancer Uterine Mother Cancer cervical cancer Father Heart disease Hypercholesteremia Hypertension Grandfather Heart disease paternal Family/Other Hypercholesteremia paternal aunt Heart disease Paternal aunt Denies family history of Anesthesia complication Bleeding disorder Social History Smoking and tobacco status: never smoked Alcohol intake: current Alcohol intake frequency: holidays/special occasions only Substance/Drug Use: never Adopted: No Lives independently: No Household members: spouse and children Housing: House Marital status: Highest education level completed: High School Graduate service: No Current occupational status: employed 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 Current occupational exposures/hazards: No Leisure activites: exercise Do you think of yourself as: Straight/Heterosexual Current gender identity: Female Yamilka/Faith: [employer] Special yamilka needs: No Agree to transfusion: No Financial difficulty paying for basics: Decline to Answer Physical Exam Const: COMMON NORMALS: no acute distress, average body habitus, patient oriented x3, no limitations, healthy appearing, alert and well nourished GENERAL APPEARANCE: cooperative ORIENTATION/CONSCIOUSNESS: Yes awake, Yes oriented to person, Yes oriented to place and Yes oriented to time HENMT: COMMON NORMALS: normocephalic and atraumatic HEAD & SCALP: normal to inspection, normocephalic and atraumatic FACE & SINUS: normal facial exam Eye: COMMON NORMALS: Equal, round and reactive pupils present GENERAL EYE: appearance normal, both eyes and all related structures and normal light reflex PUPIL: Yes Equal, round and reactive pupils present DIRECT OPHTHALMOSCOPY: Yes normal light reflex Neck/C-Spine: COMMON NORMALS: full ROM, no lymphadenopathy, supple and no meningeal signs Neuro: JOSHUA COMA SCALE: document GCS findings Quinton coma scale eye opening: Spontaneous Joshua coma scale verbal response: Orientated Joshua coma scale motor response: Obey commands Quinton coma scale total score: 15 COMMON NORMALS: patient oriented x3 SENSORIUM/ORIENTATION: Yes alert, Yes oriented to person, Yes oriented to place and Yes oriented to time MENINGEAL SIGNS: Yes no meningeal signs Skin: COMMON NORMALS: no rashes or lesions noted GENERAL SKIN EXAM: no rashes or lesions noted Course Vital Signs: Vital signs: Vital Signs Temperature 98.5 F 12/21/22 07:51 Pulse Rate 96 12/21/22 10:30 Respiratory Rate 14 12/21/22 09:00 Blood Pressure 155/98 12/21/22 10:30 Pulse Oximetry 97 12/21/22 10:30 Oxygen Delivery Me thod Room Air 12/21/22 08:26 MDM - Headache Medical Decision Making KISER is much improved here and patient feels comfortable going home. Recommended follow-up with primary care so they can discuss migraine treatment options for home. Return ED precautions given. Discharge Plan Discharge Patient Disposition: Home Clinical Impression: Migraine Qualifiers: Migraine type: without aura Status migrainosus presence: without status migrainosus Intractability: not intractable Qualified Code(s): G43.009 - Migraine without aura, not intractable, without status migrainosus Condition: Stable Prescriptions: No Action ibuprofen 200 mg capsule 800 mg PO Q8H PRN (Reason: Pain) Hold Instructions: Doctor's Order diclofenac sodium [Arthritis Pain (diclofenac)] 1 % gel 2 g topical QID PRN (Reason: shoulder pain) Qty: 100 0RF Rx Instructions: apply to shoulder prednisone 20 mg tablet 60 mg PO DAILY 5 Days Qty: 15 0RF trazodone 50 mg tablet 75 mg PO BEDTIME PRN (Reason: Sleep) albuterol sulfate 90 mcg/actuation HFA aerosol inhaler 2 inh inhalation Q6H PRN (Reason: shortness of breath or wheezing) Qty: 8.5 0RF phentermine 37.5 mg tablet 37.5 mg PO .3-4 TIMES A WEEK hydrochlorothiazide 25 mg tablet 25 mg PO QAM Protonix 40 mg tablet,delayed release (DR/EC) 40 mg PO QAM Qty: 30 0RF Discharge Orders: Discharge ED (Routine); Ordered 12/21/22 Ordered By: Yissel Whiteside Referrals: Steph Krueger MD [Primary Care Provider] - Patient Instructions: Headache - Migraine (Adult) Activity Restrictions/Additional Instructions: Please follow up with your primary care provider to discuss possible options for migraine treatment medications at home. Coding Level of Care Code ED Link Trainer Operator for Tessa Gill
[2022-12-21 07:51] VITALS: BP 164/108; PULSE 100; TEMP 36.9; O2SAT 97; BMI 30.4
[2022-12-21 08:26] VITALS: PULSE 96; O2SAT 97
[2022-12-21] MEDS: dexamethasone 10 mg/mL INJ 8 MG IV (08:26)
[2022-12-21] MEDS: sodium chloride 0.9% 1,000 ML 999 ML IV (08:26)
[2022-12-21] MEDS: diphenhydrAMINE 50 mg/mL SDV 1mL IVP (08:27)
[2022-12-21] MEDS: ketorolac 60 mg/2 mL INJ 30 MG IVP (08:28)
[2022-12-21] MEDS: ondansetron 2 mg/ML SDV 2 mL 4 MG IVP (08:28)
[2022-12-21 09:00] VITALS: BP 158/109; PULSE 100; RESP 14; O2SAT 99
[2022-12-21] MEDS: valproic acid inj 500 MG in sodium chloride 0.9% 50 ML 55 MG IV (10:20)
[2022-12-21 10:30] VITALS: BP 155/98; PULSE 96; O2SAT 97
[2022-12-21 11:04] VITALS: BP 159/102; PULSE 99; O2SAT 99
== END 2022-12-21 11:06 | disposition home or self-care (01) ==
PROVIDERS: Emergency Provider Physician Assistant; PCP Family Medicine
DX: G43.009 Migraine without aura, not intractable, without status migrainosus (principal)
CPT/HCPCS: 96365; 96375; 99284; J1100; J1200; J1885; J2405; J3490; J7030

== ENCOUNTER 2024-03-03 15:07 | Emergency (ER) | payer BC, SELFPAY ==
[2024-03-03 15:21] VITALS: BP 174/116; PULSE 102; RESP 14; TEMP 36.7; O2SAT 98
[2024-03-03 16:25] VITALS: BP 180/129; PULSE 89; RESP 18; O2SAT 98
[2024-03-03] MEDS: sodium chloride 0.9% 1,000 ML 999 ML IV (17:20)
[2024-03-03] MEDS: ketorolac 30 mg/mL INJ IVP (17:20)
[2024-03-03] MEDS: diphenhydrAMINE 50 mg/mL SDV 1mL IVP (17:22)
--- NOTE | 2024-03-03 17:27 | ED_ITS ---
HPI - Headache General: Chief Complaint: Headache Stated Complaint: migrain, high bp Time Seen by Provider: 03/03/24 16:43 Source: patient Mode of arrival: ambulatory History of Present Illness: 38-year-old female who presents to the e mergency room with complaint of a headache. She states she had a migraine that began yesterday morning around 4 to 5 AM. It has been continuous since then she has a phobia and photophobia. She has a previous history of migraines. They seem to last several years to have a weaned off quite a bit she has occasional headaches but nothing like this. She does not recall anything that seem to precipitate this. No head injury or trauma. It is similar to headaches she had associated with being migraines in the past. MD elicited complaint: migraine Pertinent past history: migraines Onset (ago): day(s) (1) Exacerbating factors: light and noise Relieving factors: nothing Associated symptoms: Deny chest pain, fever(s) or rash Treatments prior to arrival: acetaminophen and ibuprofen Review of Systems Const: Denies: fever(s) or chills Card: Denies: chest pain Resp: Denies: dyspnea GI: Denies: abdominal pain : Denies: dysuria, urinary frequency or urinary urgency Musc: Denies: neck pain or back pain Skin/Breast: Denies: rash PFSH ED PFSH: Medical History Pain in lower limb Folliculitis Swelling of lower leg Renal stone Major depressive disorder, recurrent, moderate Generalized anxiety disorder Chronic overlying anxiety, exacerbated by recent psychosocial stressors and her 's loss of job. Chronic post-traumatic stress disorder (PTSD) She reports no problematic nightmares at this time, hypervigilance, avoidance behavior, or intrusive thoughts/flashbacks. Knee pain Migraines Back pain GERD (gastroesophageal reflux disease) Obesity Surgical History History of cholecystectomy S/P tubal ligation (08/18/11) Performed by Dr. Kapoor at [facility] in [place], [place] S/P endometrial ablation (11/06/14) Hydrothermal. Diag: Menorrhagia, Dysmenorrhea. Performed by Dr. James Liriano at [facility] in [place], [place] History of thyroidectomy, subtotal (11/12/15) Left sided. Performed by Dr. Vale at [facility] in [place], [place] History of hysterectomy (07/21/16) LAVH, bilateral salpingectomy. Diag: Pelvic pain after endometrial ablation. Performed by Dr. James Liriano at [facility] in [place], [place]. Status post breast reduction (~2016) Family History Sister No problems noted. Grandmother Thyroid disease maternal Heart disease paternal Hypercholesteremia paternal Cancer Uterine Mother Cancer cervical cancer Father Heart disease Hypercholesteremia Hypertension Grandfather Heart disease paternal Family/Other Hypercholesteremia paternal aunt Heart disease Paternal aunt Denies family history of Anesthesia complication Bleeding disorder Social History Smoking and tobacco/nicotine status: never used tobacco/nicotine Alcohol intake: current Alcohol intake frequency: holidays/special occasions only Substance/Drug Use: never Adopted: No Lives independently: No Household members: spouse and children Housing: House Marital status: Highest education level completed: High School Graduate service: No Current occupational status: employed 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 Current occupational exposures/hazards: No Leisure activites: exercise Do you think of yourself as: Straight/Heterosexual Current gender identity: Female Yamilka/Anabaptism: Mu-Ism Special yamilka needs: No Agree to transfusion: No Physical Exam Const: COMMON NORMALS: no acute distress GENERAL APPEARANCE: cooperative and comfortable ORIENTATION/CONSCIOUSNESS: Yes awake, Yes oriented to person, Yes oriented to place and Yes oriented to time HENMT: COMMON NORMALS: normocephalic, atraumatic and hearing grossly normal bilaterally HEAD & SCALP: normocephalic and atraumatic Resp: COMMON NORMALS: normal respiratory effort, No retractions, No use of accessory muscles and clear to auscultation bilaterally AUSCULTATION: clear to auscultation bilaterally Cardio: COMMON NORMALS: regular rate, regular rhythm and No murmurs present (Cardio) RATE: regular rate RHYTHM: regular rhythm GI: COMMON NORMALS: Soft to palpation and No hepatosplenomegaly present AUSCULTATION: Yes normoactive bowel sounds PALPATION: Yes Soft to palpation, No Tenderness to palpation present (GI), No Guarding due to palpation present (GI) and Yes No hepatosplenomegaly present Extremity: COMMON NORMALS: normal to inspection, capillary refill normal, no clubbing, cyanosis or edema, no calf tenderness and no pedal edema Neuro: SENSORIUM/ORIENTATION: Yes oriented to person, Yes oriented to place and Yes oriented to time Skin: COMMON NORMALS: no rashes or lesions noted GENERAL SKIN EXAM: no rashes or lesions noted Course Vital Signs: Vital signs: Vital Signs Temperature 98.1 F 03/03/24 15:21 Pulse Rate 83 03/03/24 18:46 Respiratory Rate 16 03/03/24 18:46 Blood Pressure 180/129 03/03/24 16:25 Pulse Oximetry 100 03/03/24 18:46 Oxygen Delivery Me thod Room Air 03/03/24 15:21 MDM - Headache Medical Decision Making Improved with medications given. Discharge patient home promethazine to use as needed can take along with Tylenol or Profen as needed if has recurrent episodes of migraines recommend follow-up with primary care to consider migraine prophylaxis. No radiology studies performed this visit Discharge Plan Discharge Patient Disposition: Home Clinical Impression: Migraine Condition: Stable Prescriptions: New promethazine 25 mg tablet 25 mg PO Q6H PRN (Reason: headache) Qty: 20 0RF No Action ibuprofen 200 mg capsule 800 mg PO Q8H PRN (Reason: Pain) Hold Instructions: Doctor's Order topiramate 25 mg tablet PO cyclobenzaprine 10 mg tablet 10 mg PO TID PRN (Reason: muscle spasm) Qty: 20 0RF lidocaine [Salonpas (lidocaine)] 4 % adhesive patch,medicated 1 patch topical DAILY PRN (Reason: pain) Qty: 30 0RF trazodone 50 mg tablet 75 mg PO BEDTIME PRN (Reason: Sleep) albuterol sulfate 90 mcg/actuation HFA aerosol inhaler 2 inh inhalation Q6H PRN (Reason: shortness of breath or wheezing) Qty: 8.5 0RF phentermine 37.5 mg tablet 37.5 mg PO .3-4 TIMES A WEEK hydrochlorothiazide 25 mg tablet 25 mg PO QAM Discharge Orders: Discharge ED (Routine); Ordered 03/03/24 Ordered By: Alphonso Schofield Referrals: Steph Krueger MD [Primary Care Provider] - Discharge Diet: Usual diet Discharge Activity: Increase activity as tolerated Patient Instructions: Migraine Headache (ED), Opioid Safety, Pain Management Activity Restrictions/Additional Instructions: Thank you for choosing [facility] for your healthcare needs today. It is very important that you follow up as instructed or that you return to the Emergency Department should you have concerns or if your condition changes or worsens in any way. Coding Level of Care Code ED Duct Layer Supervisor for Tessa Gill
[2024-03-03] MEDS: valproic acid inj 500 MG in sodium chloride 0.9% 50 ML 55 MG IV (17:35)
[2024-03-03 18:46] VITALS: PULSE 83; RESP 16; O2SAT 100
== END 2024-03-03 18:47 | disposition home or self-care (01) ==
PROVIDERS: Emergency Provider Family Medicine; PCP Family Medicine
DX: G43.909 Migraine, unspecified, not intractable, without status migrainosus (principal)
CPT/HCPCS: 96374; 96375; 99284; J1200; J1885; J3490; J7030

== ENCOUNTER 2024-08-22 08:34 | Emergency (ER) | payer BC, SELFPAY ==
[2024-08-22 08:53] VITALS: BP 158/95; PULSE 107; RESP 18; TEMP 36.7; O2SAT 100
--- NOTE | 2024-08-22 09:02 | ED_ITS ---
HPI - Abdominal Pain 2 General: Chief Complaint: Abdominal Pain Stated Complaint: lt hip pain Time Seen by Provider: 08/22/24 08:43 Source: patient Mode of arrival: ambulatory Limitations: no limitations History of Present Illness: Patient is a nice 39-year-old female presents to ED today with a complaint of left lower abdominal/pelvic pain beginning yesterday. She states she does have a history of ovarian cysts usually affecting her left side. She is status post hysterectomy for endometriosis. She feels like her pain today is similar only worse in severity. Pain is significantly worse with movement and notices a tearing sensation . She is not having any changes to bowel movements. A few weeks ago she did notice some diarrhea but this is subsided. She is not having any bloody stools. No fevers or chills. Reports a small amount of nausea but is not had any episodes of emesis. Patient also has a history of kidney/ureterolithiasis. States her pain today does not feel similar to this. She is not having any flank pain. Denies dysuria, frequency, urgency, hematuria. MD elicited complaint: abdominal pain Pain Consistency: constant Location: LLQ and Pelvis Severity: severe Quality: stabbing, sharp and other (tearing) Radiation: none Migration to: no migration Exacerbating factors: movement Relieving factors: nothing Associated Symptoms: Reports nausea; Denies chills, diarrhea, dysuria, fever(s), heartburn, syncope and vomiting Related Data Home Medications Medication Instructions Recorded Confirmed hydrochlorothiazide 25 mg tablet 25 mg PO QAM 08/22/24 08/22/24 phentermine 37.5 mg tablet 37.5 mg PO DAILY 08/22/24 08/22/24 topiramate 25 mg tablet 50 mg PO DAILY 08/22/24 08/22/24 trazodone 50 mg tablet See Rx Instructions .Route .COMPLEX 08/22/24 08/22/24 Previous Rx's Medication Instructions Recorded hydrocodone 5 mg-acetaminophen 325 1 tab PO .q 4-6 PRN pain #12 tabs 08/22/24 mg tablet ondansetron 4 mg disintegrating 4 mg PO Q8H PRN nausea and 08/22/24 tablet vomiting #14 tabs Allergies Allergy/AdvReac Type Severity Reaction Status Date / Time levofloxacin [From Levaquin] Allergy ADR-Nausea Verified 07/19/24 15:25 Review of Systems 2 Const: Denies: fever(s), chills, body aches, fatigue or malaise Eyes: Denies: change in vision or blurry vision Card: Denies: chest pain, palpitations, irregular heart rhythm, lightheadedness, syncope or dyspnea on exertion Resp: Denies: dyspnea, productive cough or pain on inspiration GI: Reports: abdominal pain and nausea; Denies: vomiting, heartburn or diarrhea : Reports: pelvic pain; Denies: flank pain, difficulty voiding, dysuria, urinary frequency, urinary urgency, urinary hesitancy, genital pruritis, vaginal odor or vaginal bleeding Musc: Denies: neck pain, back pain, extremity pain, extremity swelling or joint pain Skin/Breast: Denies: rash Neuro: Denies: headache(s) PFSH ED 2 PFSH: Medical History Pain in lower limb Folliculitis Swelling of lower leg Renal stone Major depressive disorder, recurrent, moderate Generalized anxiety disorder Chronic overlying anxiety, exacerbated by recent psychosocial stressors and her 's loss of job. Chronic post-traumatic stress disorder (PTSD) She reports no problematic nightmares at this time, hypervigilance, avoidance behavior, or intrusive thoughts/flashbacks. Knee pain Migraines Back pain GERD (gastroesophageal reflux disease) Obesity Surgical History History of cholecystectomy S/P tubal ligation (08/18/11) Performed by Dr. Kapoor at [facility] in [place], [place] S/P endometrial ablation (11/06/14) Hydrothermal. Diag: Menorrhagia, Dysmenorrhea. Performed by Dr. James Liriano at [facility] in [place], [place] History of thyroidectomy, subtotal (11/12/15) Left sided. Performed by Dr. Vale at [facility] in [place], [place] History of hysterectomy (07/21/16) LAVH, bilateral salpingectomy. Diag: Pelvic pain after endometrial ablation. Performed by Dr. James Liriano at [facility] in [place], [place]. Status post breast reduction (~2016) Family History Sister No problems noted. Grandmother Thyroid disease maternal Heart disease paternal Hypercholesteremia paternal Cancer Uterine Mother Cancer cervical cancer Father Heart disease Hypercholesteremia Hypertension Grandfather Heart disease paternal Family/Other Hypercholesteremia paternal aunt Heart disease Paternal aunt Denies family history of Anesthesia complication Bleeding disorder Social History Smoking and tobacco/nicotine status: never used tobacco/nicotine Alcohol intake: current Alcohol intake frequency: holidays/special occasions only Substance/Drug Use: never Adopted: No Lives independently: No Household members: spouse and children Housing: House Marital status: Highest education level completed: High School Graduate service: No Current occupational status: employed 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 Current occupational exposures/hazards: No Leisure activites: exercise Do you think of yourself as: Straight/Heterosexual Current gender identity: Female Yamilka/Scientology: Mandaen Special yamilka needs: No Agree to transfusion: No Physical Exam 2 Const: COMMON NORMALS: average body habitus, patient oriented x3, no limitations, healthy appearing, alert and well nourished GENERAL APPEARANCE: cooperative and in distress (appears uncomfortable-holding LLQ) O RIENTATION/CONSCIOUSNESS: Yes awake, Yes oriented to person, Yes oriented to place and Yes oriented to time HENMT: COMMON NORMALS: normocephalic and atraumatic HEAD & SCALP: normal to inspection, normocephalic and atraumatic Eye: COMMON NORMALS: no scleral icterus Neck/C-Spine: COMMON NORMALS: full ROM, no lymphadenopathy, supple and no meningeal signs Chest: COMMONS NORMALS: normal inspection of the chest Resp: COMMON NORMALS: normal respiratory effort and clear to auscultation bilaterally AUSCULTATION: clear to auscultation bilaterally Cardio: COMMON NORMALS: regular rate and regular rhythm RATE: regular rate RHYTHM: regular rhythm GI: COMMON NORMALS: Normal to inspection, nondistended, normoactive bowel sounds present, Soft to palpation, No hepatosplenomegaly present and no masses INSPECTION: Yes normal to inspection AUSCULTATION: Yes normoactive bowel sounds PALPATION: Yes Soft to palpation, Yes Tenderness to palpation present (GI) (L lower pelvis), Yes Guarding due to palpation present (GI), No Rigid due to palpation and Yes No hepatosplenomegaly present : COMMON NORMALS: Yes no CVA tenderness BLADDER/KIDNEY EXAM: Yes no CVA tenderness Back/Pelvis: COMMON NORMALS: no CVA tenderness and thoracic and lumbar spine normal to inspection Extremity: COMMON NORMALS: normal to inspection GENERAL: Yes normal exam except as noted Neuro: JOSHUA COMA SCALE: document GCS findings Joshua coma scale eye opening: Spontaneous Joshua coma scale verbal response: Orientated [place] coma scale motor response: Obey commands Joshua coma scale total score: 15 COMMON NORMALS: patient oriented x3 SENSORIUM/ORIENTATION: Yes alert, Yes oriented to person, Yes oriented to place and Yes oriented to time MENINGEAL SIGNS: Y es no meningeal signs Skin: COMMON NORMALS: no rashes or lesions noted GENERAL SKIN EXAM: no rashes or lesions noted Course 2 Vital Signs: Vital signs: Vital Signs Temperature 98.0 F 08/22/24 08:53 Pulse Rate 93 08/22/24 11:11 Respiratory Rate 18 08/22/24 10:43 Blood Pressure 180/100 08/22/24 11:11 Pulse Oximetry 99 08/22/24 11:11 MDM - Abdominal Pain Medical Decision Making Patient is a 39-year-old female here for left lower abdominal/pelvic pain starting yesterday. Vital signs are stable upon arrival. Blood work overall is nonactionable. Her UA did have WBCs but also 6-10 squamous cells. She is not having any UTI-like symptoms. Will go ahead and attempt to culture and forego antibiotics. Ultrasound imaging initially obtained but was a limited study due to overlying bowel and gas. CT scan obtained showing no acute or emergent findings. Incidental findings reviewed with patient. She does have a physiologic appearing left ovarian cyst. Nothing else in her left lower abdomen or pelvis that would explain discomfort. Patient will be allowed discharge. Given pain and nausea medications to use sparingly. Return to ED precautions discussed. Medical Records I reviewed the patient's medical records. Lab Data I reviewed the patient's lab results. 08/22/24 09:10 08/22/24 09:10 Labs/Radiology: Radiology Impressions Transvaginal US 08/22/24 09:13 IMPRESSION: 1. No acute findings. 2. Limited study. Ovaries not visualized. COMMENTS: Transvaginal imaging performed to attempt better visualization of pelvic organs. Abdomen/Pelvis CT 08/22/24 10:04 IMPRESSION: 1. Right nonobstructing nephrolithiasis. 2. Bilateral renal cysts. 3. Physiologic appearing left ovarian luteum cyst. 4. Small volume free fluid within the pelvis. COMMENTS: Consistent with the [employer]'s Incidental Findings Committee white paper (J Am Fernando Radiol 2018): Any incidental renal lesion less than 1 cm or classified as too small to characterize, or any incidental cystic renal lesion characterized as simple-appearing, is likely benign. No follow-up imaging is recommended for these lesions per consensus recommendations based on imaging criteria. Laboratory Results WBC 7.46 10^3/uL (3.29-11.43) 08/22/24 09:10 RBC 4.78 10^6/uL (3.85-5.65) 08/22/24 09:10 Hgb 14.50 g/dL (11.27-16.99) 08/22/24 09:10 Hct 43.0 % (36-47) 08/22/24 09:10 MCV 90.0 fl (85-98) 08/22/24 09:10 MCH 30.3 pg (27-33) 08/22/24 09:10 MCHC 33.7 g/dL (30-55) 08/22/24 09:10 RDW 12.2 % (12.1-15.1) 08/22/24 09:10 Plt Count 408 10^3/cmm (157-399) H 08/22/24 09:10 MPV 8.3 fL (7.4-10.4) 08/22/24 09:10 Neut % (Auto) 59.0 % 08/22/24 09:10 Lymph % (Auto) 32.3 % 08/22/24 09:10 [place] % (Auto) 6.0 % 08/22/24 09:10 Eos % (Auto) 1.7 % 08/22/24 09:10 Baso % (Auto) 0.5 % 08/22/24 09:10 Neut # (Auto) 4.39 10^3/uL (1.8-7.7) 08/22/24 09:10 Lymph # (Auto) 2.4 10^3/uL (0.8-4.8) 08/22/24 09:10 Pacific # (Auto) 0.5 10^3/uL (0.2-0.9) 08/22/24 09:10 Eos # (Auto) 0.1 10^3/uL (0.0-0.8) 08/22/24 09:10 Baso # (Auto) 0.0 10^3/uL (0.0-0.1) 08/22/24 09:10 Nucleated RBC % (auto) 0 % 08/22/24 09:10 Nucleated RBCs # 0.0 /100WBC 08/22/24 09:10 Sodium 140 mmol/L (136-145) 08/22/24 09:10 Potassium 3.7 mmol/L (3.5-5.1) 08/22/24 09:10 Chloride 105 mmol/L (98-107) 08/22/24 09:10 Carbon Dioxide 21 mmol/L (22-29) L 08/22/24 09:10 Anion Gap 17.7 (5-19) 08/22/24 09:10 BUN 9 mg/dL (6-20) 08/22/24 09:10 Creatinine 0.7 mg/dL (0.5-0.9) 08/22/24 09:10 GFR Calculation 93.2 mL/min (90-130) 08/22/24 09:10 Glucose 108 mg/dL (65-115) 08/22/24 09:10 Calculated Osmolality 289 mOsm/kg (285-295) 08/22/24 09:10 Calcium 8.7 mg/dL (8.5-10.5) 08/22/24 09:10 Total Bilirubin 0.3 mg/dL (0.15-1.2) 08/22/24 09:10 AST 24 U/L (0-32) 08/22/24 09:10 ALT 22 U/L (0-33) 08/22/24 09:10 Alkaline Phosphatase 72 U/L (35-105) 08/22/24 09:10 Total Protein 7.1 g/dL (6.6-8.7) 08/22/24 09:10 Albumin 4.1 g/dL (3.5-5.2) 08/22/24 09:10 Globulin 3.0 g/dL (1.3-4.6) 08/22/24 09:10 Lipase 73 U/L (13-60) H 08/22/24 09:10 HCG, Qual Negative (Negative) 08/22/24 09:10 Urine Color Yellow (Yellow) 08/22/24 09:10 Urine Appearance Cloudy (CLEAR) A 08/22/24 09:10 Urine pH 6.5 (5-7) 08/22/24 09:10 Ur Specific [place] 1.024 (1.005-1.030) 08/22/24 09:10 Urine Protein Trace (Negative) A 08/22/24 09:10 Urine Glucose (UA) Negative (Normal) 08/22/24 09:10 Urine Ketones Negative (Negative) 08/22/24 09:10 Urine Blood Negative (Negative) 08/22/24 09:10 Urine Nitrate Negative (Negative) 08/22/24 09:10 Urine Bilirubin Negative (Negative) 08/22/24 09:10 Urine Urobilinogen 1.0 mg/dL (Negative) 08/22/24 09:10 Ur Leukocyte Esterase Negative (Negative) 08/22/24 09:10 Urine RBC 3-5 /hpf (0-2) 08/22/24 09:10 Urine WBC 21-50 /hpf (0-5) H 08/22/24 09:10 Ur Squamous Epith Cells 6-10 /hpf (0-5) 08/22/24 09:10 Amorphous Sediment Not Reportable 08/22/24 09:10 Urine Bacteria 4+ /hpf (NONE) H 08/22/24 09:10 Hyaline Casts 2.87 /lpf 08/22/24 09:10 All radiology interpretation(s) finalized by discharge Discharge Plan Discharge Patient Disposition: Home Clinical Impression: Left ovarian cyst Condition: Stable Prescriptions: New hydrocodone-acetaminophen 5-325 mg tablet 1 tab PO .q 4-6 PRN (Reason: pain) Qty: 12 0RF ondansetron 4 mg tablet,disintegrating 4 mg PO Q8H PRN (Reason: nausea and vomiting) Qty: 14 0RF No Action trazodone 50 mg Tablet See Rx Instructions .ROUTE .COMPLEX Rx Instructions: take 1 and 1/2 tablet by mouth at bedtime topiramate 25 mg Tablet 50 mg PO DAILY phentermine 37.5 mg Tablet 37.5 mg PO DAILY Rx Instructions: must administer 30 minutes before or 1-2 hours after breakfast hydrochlorothiazide 25 mg Tablet 25 mg PO QAM Discharge Orders: Discharge ED (Routine); Ordered 08/22/24 Ordered By: Yissel Whiteside Referrals: Steph Krueger MD [Primary Care Provider] - Activity Restrictions/Additional Instructions: As we discussed, monitor symptoms closely. You have been provided pain and nausea medication to use for severe pain. We spoke about your urine analysis today. We will culture this as you are not having any UTI-like symptoms and will hold off on antibiotic therapy. You need to seek medical reevaluation for worsening abdominal/pelvic pain, burning with urination, flank pain, vomiting, fevers, or any other concerns you may have. I hope you begin to feel better soon. Coding Level of Care Code ED Daycare Director for Tessa Gill
--- NOTE | 2024-08-22 09:13 | USR_ITS ---
PROCEDURE INFORMATION: Exam: US Pelvis, Transvaginal, Non-Obstetric Exam date and time: 08/22/2024 9:29 AM Age: 39 years old Clinical indication: Pelvic pain; Additional info: L pelvis pain; Previous ovarian cysts . Hysterectomy. TECHNIQUE: Imaging protocol: Real-time transvaginal pelvic (non-obstetric) ultrasound with image documentation. Transvaginal imaging was used for better evaluation of the endometrium, adnexa, and/or cervix. COMPARISON: US pelv w/transvag [id number] 04/07/2021 2:16 PM FINDINGS: Uterus: The uterus is not visualized, compatible with provided surgical history. Right ovary/adnexa: Right ovary is not visualized. Left ovary/adnexa: Left ovary is not visualized. Urinary bladder: Not visualized. Intestine: Limited study with prominent bowel gas obscuring visualization. Intraperitoneal space: No free fluid. US/US transvaginal [id number] IMPRESSION: 1. No acute findings. 2. Limited study. Ovaries not visualized. COMMENTS: Transvaginal imaging performed to attempt better visualization of pelvic organs.
[2024-08-22 09:18] LABS: Basophils % 0.5 %; Eosinophils # 0.1 10^3/uL (0.0-0.8); Eosinophils % 1.7 %; Lymphocytes # 2.4 10^3/uL (0.8-4.8); Lymphocytes % 32.3 %; Mean Corpuscular HGB Conc 33.7 g/dL (30-55); Mean Corpuscular Hemoglobin 30.3 pg (27-33); Mean Platelet Volume 8.3 fL (7.4-10.4); Monocytes # 0.5 10^3/uL (0.2-0.9); Neutrophils # 4.39 10^3/uL (1.8-7.7); Nucleated Red Blood Cells % 0 %; Platelet Count 408 10^3/cmm (157-399); Red Blood Count 4.78 10^6/uL (3.85-5.65); Red Cell Distribution Width 12.2 % (12.1-15.1); White Blood Count 7.46 10^3/uL (3.29-11.43)
[2024-08-22 09:27] VITALS: RESP 18; O2SAT 98
[2024-08-22] MEDS: ondansetron 2 mg/ML SDV 2 mL 4 MG IVP (09:27)
[2024-08-22] MEDS: morphine 4 mg/mL SDV 1 mL IVP (09:27)
[2024-08-22 09:30] LABS: HCG, Serum Qual Negative (Negative)
[2024-08-22 09:32] LABS: Bilirubin Urine Negative (Negative); Blood Urine Negative (Negative); Glucose Urine UA Negative (Normal); Ketones Urine Negative (Negative); Leukocyte Esterase Urine Negative (Negative); Nitrate Urine Negative (Negative); Protein Urine Trace (Negative); Specific Gravity, Urine 1.024 (1.005-1.030); Urine Appearance Cloudy (CLEAR); Urine Color Yellow (Yellow); pH Urine 6.5 (5-7)
[2024-08-22 09:34] LABS: Add Urine Microscopic? YES; Bacteria Urine 4+ /hpf; Hyaline Casts Urine 2.87 /lpf; WBC Urine 21-50 /hpf (0-5)
[2024-08-22 09:35] LABS: Alanine Aminotransferase 22 U/L (0-33); Albumin Level 4.1 g/dL (3.5-5.2); Alkaline Phosphatase 72 U/L (35-105); Anion Gap 17.7 (5-19); Aspartate Amino Transferase 24 U/L (0-32); Blood Urea Nitrogen 9 mg/dL (6-20); Calcium 8.7 mg/dL (8.5-10.5); Carbon Dioxide 21 mmol/L (22-29); Chloride 105 mmol/L (98-107); Creatinine Clr Calc Pharmacy 106.7116; Glomerular Filtration Rate 93.2 mL/min (90-130); Glucose 108 mg/dL (65-115); Lipase 73 U/L (13-60); Osmolality Calculated 289 mOsm/kg (285-295); Potassium 3.7 mmol/L (3.5-5.1); Sodium 140 mmol/L (136-145); Total Bilirubin 0.3 mg/dL (0.15-1.2); Total Protein 7.1 g/dL (6.6-8.7)
--- NOTE | 2024-08-22 09:46 | PC.PHAR ---
no external med list, called [facility] and verified meds with pharmacist
--- NOTE | 2024-08-22 10:04 | CTR_ITS ---
PROCEDURE INFORMATION: Exam: CT Abdomen And Pelvis With Contrast Exam date and time: 08/22/2024 10:13 AM Age: 39 years old Clinical indication: Abdominal pain; Localized; Left lower quadrant (llq); Prior surgery; Surgery date: 6+ months; Surgery type: Hyst, gb; Additional info: L lower abdominal/pelvic pain TECHNIQUE: Imaging protocol: Computed tomography of the abdomen and pelvis with contrast. Radiation optimization: All CT scans at this facility use at least one of these dose optimization techniques: automated exposure control; mA and/or kV adjustment per patient size (includes targeted exams where dose is matched to clinical indication); or iterative reconstruction. Contrast material: OMNI 350; Contrast volume: 100 ml; Contrast route: INTRAVENOUS (IV); COMPARISON: CT kidney stone [id number] 04/04/2020 10:[address] abdomen and pelvis without contrast dated 02/18/2020. RADIATION DOSE METRICS: Total DLP (mGy-cm): 722.54 FINDINGS: Lungs: Stable benign 5 mm nodule within the subpleural posterolateral right lower lobe on axial image 7 of series 3. This appears stable since February 2020. Liver: Unremarkable. No mass. Gallbladder and biliary ducts: The gallbladder has been surgically removed. Surgical clips identified in the gallbladder fossa. No evidence for biliary dilatation. Pancreas: Unremarkable. Spleen: Unremarkable. No splenomegaly. Adrenal glands: Normal. No mass. Kidneys and ureters: Right nephrolithiasis is demonstrated. Calculus measurement: Upper pole 5 mm right renal calculus around axial image 30. No visualized renal hydronephrosis. No visualized obstructing ureteral calculus. Bilateral simple appearing incidental renal cysts are demonstrated. Largest cyst in the upper pole left kidney measures 1.8 cm and 17 Hounsfield units on axial image 23. The visualized kidneys appear otherwise unremarkable. Stomach and bowel: Unremarkable. No obstruction, ileus or definite inflammation. Appendix: The visualized appendix appears unremarkable. Intraperitoneal space: Small volume of intraperitoneal fluid identified in the bilateral pelvis. Vasculature: Calcifications in the pelvis, most compatible with phleboliths. Lymph nodes: No enlarged lymph nodes. Urinary bladder: Urinary bladder appears small in size, limiting further assessment. Reproductive: The uterus is not present. Left ovarian physiologic appearing corpus luteum cyst is noted. Measurement: 24 mm on axial image 66. Bones/joints: No acute bony abnormality. No significant degenerative changes. Soft tissues: Unremarkable. CT/CT abdomen pelvis w con* [id number] IMPRESSION: 1. Right nonobstructing nephrolithiasis. 2. Bilateral renal cysts. 3. Physiologic appearing left ovarian luteum cyst. 4. Small volume free fluid within the pelvis. COMMENTS: Consistent with the [employer]'s Incidental Findings Committee white paper (J Am Fernando Radiol 2018): Any incidental renal lesion less than 1 cm or classified as too small to characterize, or any incidental cystic renal lesion characterized as simple-appearing, is likely benign. No follow-up imaging is recommended for these lesions per consensus recommendations based on imaging criteria.
[2024-08-22] MEDS: iohexol 350 mg/mL 500 mL Btl (per mL) IV (10:15)
[2024-08-22 10:19] LABS: Add Urine Culture? Yes; UA Slide Review UA Slide Review Perf
[2024-08-22 10:29] VITALS: BP 153/97; PULSE 88; O2SAT 97
[2024-08-22 10:43] VITALS: RESP 18; O2SAT 99
[2024-08-22] MEDS: HYDROmorphone 1 mg/mL INJ 1 mL 0.5 MG IVP (10:43)
[2024-08-22 11:11] VITALS: BP 180/100; PULSE 93; O2SAT 99
== END 2024-08-22 11:12 | disposition home or self-care (01) ==
PROVIDERS: Emergency Provider Physician Assistant; PCP Family Medicine
DX: N83.202 Unspecified ovarian cyst, left side (principal)
CPT/HCPCS: 36415; 74177; 76830; 80053; 81001; 83690; 84703; 85025; 87086; 96374; 96375; 99285; J1171; J2270; J2405

== ENCOUNTER 2025-02-10 14:27 | Emergency (ER) | payer BC, SELFPAY ==
[2025-02-10 14:29] VITALS: BP 152/92; PULSE 101; RESP 16; TEMP 36.8; O2SAT 99; BMI 31.8
--- NOTE | 2025-02-10 15:00 | PC.NURSE ---
Spoke with Poison Control regarding the dosage of ozempic that the pt took last night. Pt was suppossed to take 0.2 mg of ozempic by injection and she gave herself the entire syringe which consisted of 2 mg. Poison control said the biggest worry would be GI upset, N/V/D and abdominal pain. Peak of the medicine should be in 3 days. Biggest concern will be dehydration and decreased fluid intake due to the appetite suppression and N/V. Poison control recommended metoclopramide instead of ondansentron due to the metoclopramide increased the contractions in the digestive tract. This nurse relayed all this information to Dr. Katz.
[2025-02-10 15:04] LABS: Basophils # 0.1 10^3/uL (0.0-0.1); Basophils % 0.4 %; Eosinophils % 0.2 %; Lymphocytes # 2.1 10^3/uL (0.8-4.8); Lymphocytes % 16.8 %; Mean Corpuscular HGB Conc 33.6 g/dL (30-55); Mean Corpuscular Hemoglobin 30.8 pg (27-33); Mean Corpuscular Volume 91.5 fl (85-98); Mean Platelet Volume 8.2 fL (7.4-10.4); Monocytes # 0.7 10^3/uL (0.2-0.9); Monocytes % 5.2 %; Neutrophils # 9.73 10^3/uL (1.8-7.7); Neutrophils % 77.1 %; Nucleated Red Blood Cells % 0 %; Platelet Count 459 10^3/cmm (157-399); Red Blood Count 4.81 10^6/uL (3.85-5.65); Red Cell Distribution Width 12.2 % (12.1-15.1); White Blood Count 12.63 10^3/uL (3.29-11.43)
--- NOTE | 2025-02-10 15:06 | W.ED.OVERDOS ---
HPI - Overdose General: Chief Complaint: Overdose Stated Complaint: took 4xdose ozempic Time Seen by Provider: 02/10/25 14:40 Source: patient and family Mode of arrival: ambulatory Limitations: no limitations History of Present Illness: This patient was directed to the emergency department by poison control. She apparently received her initial shipment of Ozempic that she ordered from pharmacy yesterday. The instructions were to turn the dial on the syringe to the first clinic and administer that amount of medication subcutaneously. She did so which apparently resulted in her taking a total of 2 mg subcu. Since that time she has developed nausea fullness in her abdomen and since 5 AM today repetitive vomiting with inability eat or drink. She denies any specific abdominal pains. She does not take any other hypoglycemic medicines such as metformin, sulfonylurea etc. This was being administered for weight loss. She had a prior cholecystectomy as well as a bilateral salpingectomy and a hysterectomy. She has no other significant chronic medical problems other than hypertension that she treats with hydrochlorothiazide. Context: Accidental Overdose: medication error Associated symptoms: headaches and nausea/vomiting Related Data Home Medications ?Medication ?Instructions ?Recorded ?Confirmed hydrochlorothiazide 25 mg tablet 25 mg PO QAM 08/22/24 02/10/25 Held on 02/10/25. Instructions: Resume on 02/15/25. hold until eating and drinking normally topiramate 25 mg tablet 50 mg PO DAILY 08/22/24 02/10/25 trazodone 50 mg tablet See Rx Instructions .Route .COMPLEX 08/22/24 02/10/25 dimenhydrinate 50 mg chewable 50 mg PO Q8H 02/10/25 02/10/25 tablet (Dramamine) Previous Rx's ?Medication ?Instructions ?Recorded metoclopramide HCl 10 mg tablet 10 mg PO Q6H PRN Nausea And 02/10/25 (Reglan) Vomiting #15 tabs ondansetron 4 mg disintegrating 4 mg PO Q8H PRN nausea and 02/10/25 tablet vomiting #20 tabs Allergies Allergy/AdvReac Type Severity Reaction Status Date / Time levofloxacin (From Levaquin) Allergy ADR-Nausea Verified 10/09/24 09:16 Review of Systems Const: Denies: fever(s) or chills ENMT: Denies: throat pain, odynophagia, nasal discharge or nasal congestion Card: Denies: chest pain, lightheadedness, syncope or pre-syncope Resp: Denies: dyspnea, productive cough or non-productive cough GI: Reports: nausea and vomiting; Denies: abdominal pain : Denies: flank pain, difficulty voiding or dysuria Musc: Denies: neck pain, back pain, extremity pain or extremity swelling Skin/Breast: Denies: rash Neuro: Reports: headache(s); Denies: numbness in extremities or weakness in extremities Endo: Denies: polyuria or polydipsia PFSH ED PFSH: Medical History Allergic rhinitis due to allergen Pain in lower limb Folliculitis Swelling of lower leg Renal stone Major depressive disorder, recurrent, moderate Generalized anxiety disorder Chronic overlying anxiety, exacerbated by recent psychosocial stressors and her 's loss of job. Chronic post-traumatic stress disorder (PTSD) She reports no problematic nightmares at this time, hypervigilance, avoidance behavior, or intrusive thoughts/flashbacks. Knee pain Migraines Back pain GERD (gastroesophageal reflux disease) Obesity Surgical History History of cholecystectomy S/P tubal ligation (08/18/11) Performed by Dr. Kapoor at [facility] in [place], [place] S/P endometrial ablation (11/06/14) Hydrothermal. Diag: Menorrhagia, Dysmenorrhea. Performed by Dr. James Liriano at [facility] in [place], [place] History of thyroidectomy, subtotal (11/12/15) Left sided. Performed by Dr. Vale at [facility] in [place], [place] History of hysterectomy (07/21/16) LAVH, bilateral salpingectomy. Diag: Pelvic pain after endometrial ablation. Performed by Dr. James Liriano at [facility] in [place], [place]. Status post breast reduction (~2016) Family History Sister No problems noted. Grandmother Thyroid disease maternal Heart disease paternal Hypercholesteremia paternal Cancer Uterine Mother Cancer cervical cancer Father Heart disease Hypercholesteremia Hypertension Grandfather Heart disease paternal Family/Other Hypercholesteremia paternal aunt Heart disease Paternal aunt Denies family history of Anesthesia complication Bleeding disorder Social History Smoking and tobacco/nicotine status: never used tobacco/nicotine Alcohol intake: current Alcohol intake frequency: holidays/special occasions only Substance/Drug Use: never Adopted: No Lives independently: No Household members: spouse and children Housing: House Marital status: Highest education level completed: High School Graduate service: No Current occupational status: employed 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 Const: COMMON NORMALS: patient oriented x3, healthy appearing and alert GENERAL APPEARANCE: cooperative NUTRITIONAL APPEARANCE: overweight HENMT: COMMON NORMALS: atraumatic, Normal nasal mucous membranes and turbinates present, moist oral mucous membranes and oropharynx normal HEAD & SCALP: atraumatic NOSE: Normal nasal mucous membranes and turbinates present Eye: COMMON NORMALS: Equal, round and reactive pupils present, EOMs intact bilaterally and conjunctivae normal CONJUNCTIVA: Yes conjunctivae normal PUPIL: Yes Equal, round and reactive pupils present Neck/C-Spine: COMMON NORMALS: full ROM and no lymphadenopathy Resp: COMMON NORMALS: normal respiratory effort, No use of accessory muscles and clear to auscultation bilaterally AUSCULTATION: clear to auscultation bilaterally Cardio: COMMON NORMALS: regular rate, regular rhythm, No murmurs present (Cardio) and Peripheral pulses 2+ throughout RATE: regular rate RHYTHM: regular rhythm PERIPHERAL PULSES: Peripheral pulses 2+ throughout GI: COMMON NORMALS: Normal to inspection, nondistended, normoactive bowel sounds present, Soft to palpation, non-tender and no masses PALPATION: Yes Soft to palpation Back/Pelvis: COMMON NORMALS: thoracic and lumbar spine normal to inspection, no thoracic nor lumbar tenderness and thoraco-lumbar ROM normal Extremity: COMMON NORMALS: normal to inspection, full ROM and capillary refill normal Neuro: COMMON NORMALS: patient oriented x3, moves all extremities, no focal motor deficits and no sensory deficits noted SENSORIUM/ORIENTATION: Yes alert Psych: COMMON NORMALS: mental status grossly normal Skin: COMMON NORMALS: no rashes or lesions noted, turgor normal and no jaundice GENERAL SKIN EXAM: no rashes or lesions noted and turgor normal Course Reevaluation(s): Reevaluation #1: Subjectively she is feeling improved after antibiotic. IV fluids are infusing. We discussed potential and outcomes but at this time we will continue to observe and hydrate and follow her response. Laboratories are currently reassuring. Time: 16:18 Reevaluation #2: Patient is subjectively feeling better at this time. Discussed in detail plan of care with her. Emphasized the need to keep well-hydrated and that if she is unsuccessful that she needs to return to the emergency department for hydration and symptom control. We will plan on providing with 2 separate antiemetics case she is intolerant or one of the antiemetics is ineffective. Both she and her spouse voiced understanding the plan of care and were appreciative. Time: 18:34 Consultations: Consultation #1: Poison control was consulted and they recommended IV fluids, metoclopramide for nausea and supportive care. The half-life of Ozempic is approximately 1 week. Hypoglycemia is rare given the fact that she does not take any other hypoglycemic agents. Time: 15:16 Vital Signs: Vital signs: Vital Signs Temperature 98.2 F 02/10/25 14:29 Pulse Rate 86 02/10/25 19:15 Respiratory Rate 16 02/10/25 14:29 Blood Pressure 162/84 02/10/25 19:15 Pulse Oximetry 100 02/10/25 19:15 Oxygen Delivery Me thod Room Air 02/10/25 18:22 MDM - Overdose Medical Decision Making This patient presents to the emergency department as noted in the HPI. She had an inadvertent dosing of her Ozempic based upon less than ideal patient instructions included with her injection yet. Since her injection last night she has had developing abdominal fullness and bloating with recurrent vomiting. She does not take any other oral diabetic agents. The Ozempic was intended to be used for weight loss. Her clinical examination did not reveal any findings to suggest acute abdomen without a rebound guarding etc. Manger of her examination was nonfocal. A consultation was placed to poison control. Initially she received IV hydration, antiemetics as well as screening laboratories. Additional consultation with toxicology was also done on an informal basis regarding recommended management plan for Ozempic overdose. Her laboratories are reassuring and she was clinically and subjectively improved after IV fluids and antiemetics. Given the fact that she does not take any other agents such as sulfonylurea etc. the risk of hypoglycemia is extremely low. The predominant side effects are related to the mechanism of the medication to include early satiety, abdominal fullness, vomiting etc. The object is to keep her hydrated until the medication reaches its normal metabolism. She was clinically stable and preferred to be discharged home and I think it is a reasonable plan given my search of the current literature as well as consultations. She was provided with antiemetics of 2 different classes in case 1 was less effective than the other. She was also given instructions on oral rehydration solutions etc. We also discussed return precautions with both she and her who voiced understanding. Lab Data I reviewed the patient's lab results. 02/10/25 14:56 02/10/25 14:56 Laboratory Results WBC 12.63 10^3/uL (3.29-11.43) H 02/10/25 14:56 RBC 4.81 10^6/uL (3.85-5.65) 02/10/25 14:56 Hgb 14.80 g/dL (11.27-16.99) 02/10/25 14:56 Hct 44.0 % (36-47) 02/10/25 14:56 MCV 91.5 fl (85-98) 02/10/25 14:56 MCH 30.8 pg (27-33) 02/10/25 14:56 MCHC 33.6 g/dL (30-55) 02/10/25 14:56 RDW 12.2 % (12.1-15.1) 02/10/25 14:56 Plt Count 459 10^3/cmm (157-399) H 02/10/25 14:56 MPV 8.2 fL (7.4-10.4) 02/10/25 14:56 Neut % (Auto) 77.1 % 02/10/25 14:56 Lymph % (Auto) 16.8 % 02/10/25 14:56 Candler % (Auto) 5.2 % 02/10/25 14:56 Eos % (Auto) 0.2 % 02/10/25 14:56 Baso % (Auto) 0.4 % 02/10/25 14:56 Neut # (Auto) 9.73 10^3/uL (1.8-7.7) H 02/10/25 14:56 Lymph # (Auto) 2.1 10^3/uL (0.8-4.8) 02/10/25 14:56 Candler # (Auto) 0.7 10^3/uL (0.2-0.9) 02/10/25 14:56 Eos # (Auto) 0.0 10^3/uL (0.0-0.8) 02/10/25 14:56 Baso # (Auto) 0.1 10^3/uL (0.0-0.1) 02/10/25 14:56 Nucleated RBC % (auto) 0 % 02/10/25 14:56 Nucleated RBCs # 0.0 /100WBC 02/10/25 14:56 Sodium 138 mmol/L (136-145) 02/10/25 14:56 Potassium 3.6 mmol/L (3.5-5.1) 02/10/25 14:56 Chloride 105 mmol/L (98-107) 02/10/25 14:56 Carbon Dioxide 17 mmol/L (22-29) L 02/10/25 14:56 Anion Gap 19.6 (5-19) H 02/10/25 14:56 BUN 11 mg/dL (6-20) 02/10/25 14:56 Creatinine 0.7 mg/dL (0.5-0.9) 02/10/25 14:56 GFR Calculation 93.2 mL/min (90-130) 02/10/25 14:56 Glucose 97 mg/dL (65-115) 02/10/25 14:56 Calculated Osmolality 285 mOsm/kg (285-295) 02/10/25 14:56 Calcium 8.9 mg/dL (8.5-10.5) 02/10/25 14:56 Total Bilirubin 0.6 mg/dL (0.15-1.2) 02/10/25 14:56 AST 16 U/L (0-32) 02/10/25 14:56 ALT 19 U/L (0-33) 02/10/25 14:56 Alkaline Phosphatase 67 U/L (35-105) 02/10/25 14:56 Total Protein 7.6 g/dL (6.6-8.7) 02/10/25 14:56 Albumin 4.2 g/dL (3.5-5.2) 02/10/25 14:56 Globulin 3.4 g/dL (1.3-4.6) 02/10/25 14:56 Lipase 55 U/L (13-60) 02/10/25 14:56 No radiology studies performed this visit Discharge Plan Discharge Patient Disposition: Home Clinical Impression: Accidental medication overdose Qualifiers: Encounter type: initial encounter Qualified Code(s): T50.901A - Poisoning by unspecified drugs, medicaments and biological substances, accidental (unintentional), initial encounter Condition: Stable Prescriptions: New metoclopramide HCl [Reglan] 10 mg tablet 10 mg PO Q6H PRN (Reason: Nausea And Vomiting) Qty: 15 0RF ondansetron 4 mg tablet,disintegrating 4 mg PO Q8H PRN (Reason: nausea and vomiting) Qty: 20 0RF Held hydrochlorothiazide 25 mg Tablet 25 mg PO QAM Hold Instructions: Resume on 02/15/25. hold until eating and drinking normally No Action trazodone 50 mg Tablet See Rx Instructions .ROUTE .COMPLEX Rx Instructions: take 1 and 1/2 tablet by mouth at bedtime topiramate 25 mg Tablet 50 mg PO DAILY Dramamine 50 mg Tablet,Chewable 50 mg PO Q8H Discharge Orders: Discharge ED (Routine); Ordered 02/10/25 Ordered By: Bipin Katz Referrals: Denise Baxter DO [Primary Care Provider, [facility]] Discharge Diet: Advance as tolerated Discharge Activity: Increase activity as tolerated Patient Instructions: Opioid Safety, Pain Management, Patient Portal & Adela Instructions Activity Restrictions/Additional Instructions: As we discussed the Ozempic medication can last for up to 5 to 7 days. It is important that you keep well-hydrated with such liquids as sports drinks like Gatorade, Powerade water, half-strength apple juice with water etc. You can also try small amounts of meals such as protein shakes, beef broth chicken broth etc. You should limit your volume intake to 2 to 3 ounces at a time but repeat that amount frequently throughout the day to make sure you are stay hydrated. If you are unsuccessful in staying hydrated, you have increasing abdominal pain, or any other concerns at any time return to the emergency department for reevaluation. Print Language: Botswanan Coding Level of Care Code ED Pmo Analyst for Tessa Gill
[2025-02-10 15:21] LABS: Alanine Aminotransferase 19 U/L (0-33); Albumin Level 4.2 g/dL (3.5-5.2); Alkaline Phosphatase 67 U/L (35-105); Anion Gap 19.6 (5-19); Aspartate Amino Transferase 16 U/L (0-32); Blood Urea Nitrogen 11 mg/dL (6-20); Calcium 8.9 mg/dL (8.5-10.5); Carbon Dioxide 17 mmol/L (22-29); Chloride 105 mmol/L (98-107); Globulin 3.4 g/dL (1.3-4.6); Glomerular Filtration Rate 93.2 mL/min (90-130); Glucose 97 mg/dL (65-115); Lipase 55 U/L (13-60); Osmolality Calculated 285 mOsm/kg (285-295); Potassium 3.6 mmol/L (3.5-5.1); Sodium 138 mmol/L (136-145); Total Bilirubin 0.6 mg/dL (0.15-1.2); Total Protein 7.6 g/dL (6.6-8.7)
[2025-02-10] MEDS: lactated ringers 1,000 ML 999 ML IV (15:35)
[2025-02-10] MEDS: metoclopramide 5 mg/mL SDV 2 mL 10 MG IVP (15:36)
[2025-02-10 18:22] VITALS: BP 179/93; PULSE 99; O2SAT 100
[2025-02-10] MEDS: METOCLOPRAMIDE HCL 10 MG/10 ML UDC 20 MG PO (19:09)
[2025-02-10 19:15] VITALS: BP 162/84; PULSE 86; O2SAT 100
[2025-02-13 13:47] LABS: Glucose Point of Care 93 mg/dL (70-110)
== END 2025-02-10 19:15 | disposition home or self-care (01) ==
PROVIDERS: Emergency Provider Emergency Medicine; PCP Family Medicine
DX: T50.901A Poisoning by unspecified drugs, medicaments and biological substances, accidental (unintentional), initial encounter (principal); X58.XXXA Exposure to other specified factors, initial encounter
CPT/HCPCS: 36416; 80053; 82962; 83690; 85025; 96361; 96374; 99284; J2765; J7120; J9999

== ENCOUNTER → 2025-02-23 10:14 | Outpatient (BNVA) | payer BC, SELFPAY | PROVIDERS: PCP Family Medicine; Visit Provider Family Medicine | DX: I10 Essential (primary) hypertension (principal) | CPT/HCPCS: 80053; 80061; 84443; 85025 ==

== ENCOUNTER 2025-05-02 07:33 | Emergency (ER) | payer BC, SELFPAY ==
[2025-05-02 07:56] VITALS: BP 124/90; PULSE 76; RESP 18; TEMP 36.7; O2SAT 100; BMI 31.3
--- NOTE | 2025-05-02 08:36 | ED_ITS ---
HPI - Skin/Abscess/Foreign Bdy General: Chief complaint: Skin/Abscess/Foreign Body Stated complaint: Bump on R side Of Private area Time Seen by Provider: 05/02/25 07:39 History of Present Illness: 39-year-old female presents emergency ro om complaining of a genital abscess. She has had an exquisitely tender area she initially thought it was an ingrown hair she tried to get it to drain at home. Occurred initially a week ago. It seemed to get progressively worse since then. Patient denies fever sweats or chills she is not diabetic she is still been able to urinate without difficulty. Patient is not diabetic if she is taking Victoza for weight loss has not taken it for the last week Related Data Previous Rx's ?Medication ?Instructions ?Recorded hydrochlorothiazide 25 mg tablet 25 mg PO QAM #90 tabs 04/09/25 liraglutide 0.6 mg/0.1 mL (18 mg/3 0.6 mg (0.1 mL) SUB CUT DAILY #6 mL 04/09/25 mL) subcutaneous pen injector (Victoza 2-Jose Elias) losartan 25 mg tablet 25 mg PO DAILY #90 tabs 03/17 01/07 pen needles #100 ea 04/09/25 topiramate 50 mg tablet 50 mg PO DAILY #90 tabs 03/17 01/07 trazodone 150 mg tablet 150 mg PO DAILY #90 tabs Allergies Allergy/AdvReac Type Severity Reaction Status Date / Time levofloxacin (From Levaquin) Allergy ADR-Nausea Verified 04/09/25 07:31 [facility] ED PFS: Medical History Duodenitis Asthma Allergic rhinitis due to allergen Pain in lower limb Folliculitis Swelling of lower leg Renal stone Major depressive disorder, recurrent, moderate Suicide attempt in 2018 Generalized anxiety disorder Chronic overlying anxiety, exacerbated by recent psychosocial stressors and her 's loss of job. Chronic post-traumatic stress disorder (PTSD) She reports no problematic nightmares at this time, hypervigilance, avoidance behavior, or intrusive thoughts/flashbacks. Knee pain Migraines Back pain GERD (gastroesophageal reflux disease) Obesity Surgical History History of colonoscopy History of esophagogastroduodenoscopy (EGD) History of cholecystectomy S/P tubal ligation (08/18/11) Performed by Dr. Kapoor at [facility] in [place], [place] S/P endometrial ablation (11/06/14) Hydrothermal. Diag: Menorrhagia, Dysmenorrhea. Performed by Dr. James Liriano at [facility] in [place], [place] History of thyroidectomy, subtotal (11/12/15) Left sided. Performed by Dr. Vale at [facility] in [place], [place] History of hysterectomy (07/21/16) LAVH, bilateral salpingectomy. Diag: Pelvic pain after endometrial ablation. Performed by Dr. James Liriano at [facility] in [place], [place]. Status post breast reduction (~2016) Family History Sister No problems noted. Grandmother Thyroid disease maternal Heart disease paternal Hypercholesteremia paternal Cancer Uterine Mother Cancer cervical cancer Father Heart disease Hypercholesteremia Hypertension Grandfather Heart disease paternal Family/Other Hypercholesteremia paternal aunt Heart disease Paternal aunt Denies family history of Anesthesia complication Bleeding disorder Social History Smoking and tobacco/nicotine status: never used tobacco/nicotine Alcohol intake: current Alcohol intake frequency: holidays/special occasions only Substance/Drug Use: never Adopted: No Lives independently: No Household members: spouse and children Housing: House Marital status: Highest education level completed: High School Graduate service: No Current occupational status: employed 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 There is a palpable fluctuant abscess on the anterior parison of the labia minora immediately adjacent to the ureteral meatus extending medially to the. No drainage. Course Vital Signs: Vital signs: Vital Signs Temperature 98.1 F 05/02/25 07:56 Pulse Rate 76 05/02/25 07:56 Respiratory Rate 18 05/02/25 07:56 Blood Pressure 124/90 05/02/25 07:56 Pulse Oximetry 100 05/02/25 07:56 Oxygen Delivery Me thod Room Air 05/02/25 07:56 MDM - Skin/Abscess/Foreign Bdy Medicial Decision Making Discussed with gynecology. Abscess is immediately adjacent to the ureteral meatus. Patient is still able to void. They can see her in the office this morning immediately they asked that we discharge her from here to the office and they will manage incision and drainage as appropriate. Discussed with Dr. Hill who is on-call for gynecology No radiology studies performed this visit Discharge Plan Discharge Patient Disposition: Home Clinical Impression: Abscess of right genital labia Condition: Stable Prescriptions: No Action trazodone 150 mg tablet 150 mg PO DAILY Qty: 90 1RF topiramate 50 mg tablet 50 mg PO DAILY Qty: 90 1RF hydrochlorothiazide 25 mg tablet 25 mg PO QAM Qty: 90 1RF liraglutide [Victoza 2-Jose Elias] 0.6 mg/0.1 mL (18 mg/3 mL) pen injector 0.6 mg SUBCUT DAILY Qty: 6 0RF losartan 25 mg tablet 25 mg PO DAILY Qty: 90 1RF (DME) pen needles See Rx Instructions .Route .MEDSUPPLY Qty: 100 5RF Rx Instructions: As directed Discharge Orders: Discharge ED (Routine); Ordered 05/02/25 Ordered By: Alphonso Schofield Referrals: Chris Hill MD [Physician, [facility]] Referral Note: Proceed immediately to Dr. Hill's office after being discharged from the emergency room. Patient Instructions: Opioid Safety, Pain Management, Patient Portal & Adela Instructions Activity Restrictions/Additional Instructions: Thank you for choosing [facility] for your healthcare needs today. It is very important that you follow up as instructed or that you return to the Emergency Department should you have concerns or if your condition changes or worsens in any way. Emergency department visits are focused on emergent conditions, in some cases you may require further evaluation on an outpatient basis. You were seen this morning for complaints of pain in the genital area on exam there is a abscess on the right labia minora near the ureteral meatus (opening from the bladder). We discussed with the on-call nurse practitioner manager Dr. Hill he will see you in the office this morning. Immediately after discharge go to his office and they will see you there. (Please note that included in your discharge packet is information concerning opioid safety and pain management. This information is given to all patients were discharged from the ER regardless of their discharge diagnosis or the medicines they usually take or are prescribed.) Print Language: Monegasque Coding Level of Care Code ED Quiller Machine Fixer for Tessa Gill
[2025-05-02 09:08] LABS: Hematocrit 41.6 % (36-47); Hemoglobin 13.80 g/dL (11.27-16.99); Mean Corpuscular HGB Conc 33.2 g/dL (30-55); Mean Corpuscular Hemoglobin 30.9 pg (27-33); Mean Corpuscular Volume 93.3 fl (85-98); Nucleated Red Blood Cells % 0 %; Platelet Count 415 10^3/cmm (157-399); Red Blood Count 4.46 10^6/uL (3.85-5.65); White Blood Count 8.84 10^3/uL (3.29-11.43)
== END 2025-05-02 08:57 | disposition home or self-care (01) ==
PROVIDERS: Emergency Provider Family Medicine; PCP Family Medicine
DX: N76.4 Abscess of vulva (principal)
CPT/HCPCS: 36415; 85025; 99283

== ENCOUNTER 2025-07-30 14:50 | Emergency (ER) | payer BC, SELFPAY ==
--- NOTE | 2025-07-30 14:54 | XR_ITS ---
WS: [id number] RIGHT SHOULDER: 3 VIEW(S) TECHNIQUE: Internal and external rotation with Y view. HISTORY: Pain, fell 2 days ago. COMPARISON: None available. Very subtle curvilinear area of increased density over the greater tuberosity. This was not present on the prior study. This could potentially represent a small avulsion fracture. There is no displacement. Shoulder is normally situated in the glenoid. Normal AC joint. Visualized lung is clear. XR/XR shoulder RT min 2V* [id number] IMPRESSION: 1. Tiny avulsion fracture versus calcific tendinitis or artifact over the RIGH T greater tuberosity. 2. No shoulder dislocation.
[2025-07-30 15:02] VITALS: BP 155/94; PULSE 102; RESP 18; TEMP 36.7; O2SAT 100
--- NOTE | 2025-07-30 15:20 | W.ED.EXTPRO ---
HPI - Extremity Problem General: Chief complaint: Extremity Injury, Upper Stated complaint: right shoulder pain Time Seen by Provider: 07/30/25 15:04 Source: patient Mode of arrival: ambulatory Limitations: no limitations History of Present Illness: Patient is a 40-year-old female presents emergency department after falling and injuring her right shoulder on Wednesday. States that she tripped and fell on accident, landed on her right elbow and though she is not reporting any elbow pain states that the pain primarily is in her shoulder. Worse with any movement she states she was at work today and tried to put some weight on her right arm while sitting in a chair and this caused shooting pain that was unbearable. She has been taking Motrin with not much relief, though she does note that with rest the pain seems to not be present. She has no previous injuries to the right shoulder specifically no internal ligamentous injuries, no history of surgeries. No other injuries indicated to me from the initial fall. MD Complaint: joint pain Onset (ago): day(s) Pain Consistency: constant Location: right and upper extremity (shoulder) Relieving factors: movement Exacerbating factors: rest Associated symptoms: Deny chest pain, fever(s) or rash Related Data Previous Rx's ?Medication ?Instructions ?Recorded pen needles #100 ea 04/09/25 topiramate 50 mg tablet 50 mg PO DAILY #90 tabs 04/09/25 trazodone 150 mg tablet 150 mg PO DAILY #90 tabs 04/09/25 cephalexin 500 mg capsule 500 mg PO Q8H #30 caps 05/02/25 oxycodone-acetaminophen 5 mg-325 1 tab PO Q6H PRN pain 3 days #14 05/02/25 mg tablet (Percocet) tabs hydrochlorothiazide 25 mg tablet See Rx Instructions .Route 05/22/25 .COMPLEX #30 tabs losartan 25 mg tablet See Rx Instructions .Route 05/22/25 .COMPLEX #30 tabs Allergies Allergy/AdvReac Type Severity Reaction Status Date / Time levofloxacin (From Levaquin) Allergy ADR-Nausea Verified 05/02/25 09:13 Review of Systems General: Reports: 10 or more systems reviewed and unremarkable except in HPI and below Const: Denies: fever(s) or chills Card: Denies: chest pain Resp: Denies: dyspnea or productive cough GI: Denies: abdominal pain, nausea, vomiting or diarrhea : Denies: flank pain Musc: Reports: joint pain (rt shoulder) and limited range of motion (rt shoulder); Denies: neck pain, back pain, extremity pain, extremity swelling, joint swelling, joint redness, joint warmth or muscle weakness Skin/Breast: Denies: rash Neuro: Denies: headache(s), numbness in extremities or weakness in extremities PFSH ED PFSH: Medical History Duodenitis Asthma Allergic rhinitis due to allergen Pain in lower limb Folliculitis Swelling of lower leg Renal stone Major depressive disorder, recurrent, moderate Suicide attempt in 2018 Generalized anxiety disorder Chronic overlying anxiety, exacerbated by recent psychosocial stressors and her 's loss of job. Chronic post-traumatic stress disorder (PTSD) She reports no problematic nightmares at this time, hypervigilance, avoidance behavior, or intrusive thoughts/flashbacks. Knee pain Migraines Back pain GERD (gastroesophageal reflux disease) Obesity Surgical History History of colonoscopy History of esophagogastroduodenoscopy (EGD) History of cholecystectomy S/P tubal ligation (08/18/11) Performed by Dr. Kapoor at [facility] in [place], [place] S/P endometrial ablation (11/06/14) Hydrothermal. Diag: Menorrhagia, Dysmenorrhea. Performed by Dr. James Liriano at [facility] in [place], [place] History of thyroidectomy, subtotal (11/12/15) Left sided. Performed by Dr. Vale at [facility] in [place], [place] History of hysterectomy (07/21/16) LAVH, bilateral salpingectomy. Diag: Pelvic pain after endometrial ablation. Performed by Dr. James Liriano at [facility] in [place], [place]. Status post breast reduction (~2016) Family History Sister No problems noted. Grandmother Thyroid disease maternal Heart disease paternal Hypercholesteremia paternal Cancer Uterine Mother Cancer cervical cancer Father Heart disease Hypercholesteremia Hypertension Grandfather Heart disease paternal Family/Other Hypercholesteremia paternal aunt Heart disease Paternal aunt Denies family history of Anesthesia complication Bleeding disorder Social History Smoking and tobacco/nicotine status: never used tobacco/nicotine Alcohol intake: current Alcohol intake frequency: holidays/special occasions only Substance/Drug Use: never Adopted: No Lives independently: No Household members: spouse and children Housing: House Marital status: Highest education level completed: High School Graduate service: No Current occupational status: employed Current occupation: [employer] Current occupational exposures/hazards: No Leisure activites: exercise Do you think of yourself as: Straight/Heterosexual Current gender identity: Female [place]/Adventism: Hoahaoism Special yamilka needs: No Agree to transfusion: No Physical Exam Const: COMMON NORMALS: no acute distress, patient oriented x3, no limitations, healthy appearing, alert and well nourished HENMT: COMMON NORMALS: normocephalic and atraumatic HEAD & SCALP: normocephalic and atraumatic Neck/C-Spine: COMMON NORMALS: full ROM, supple and no meningeal signs Extremity: COMMON NORMALS: capillary refill normal, no joint enlargement and no clubbing, cyanosis or edema NARRATIVE EXTREMITY EXAM: Patient's right shoulder joint is nontender to palpation, she is nontender to the scapular spine, clavicle, or AC joint. There is range of motion in all planes though she is endorsing pain with passive range of motion. Empty can testing, there is no discrete weakness but there is pain with counterforce on the right shoulder. Liftoff testing for isolation of the subscapularis indicates both pain and weakness. Internal and external rotation of the right upper remedy negative for reproduced pain. Crossarm testing is unremarkable, and shoulder impingement testing negative. She is unable to participate in arc testing secondary to too much pain with range of motion above 90 degree. Elbow negative tenderness to palpation and full range of motion at the elbow. Neuro: COMMON NORMALS: patient oriented x3, moves all extremities, no focal motor deficits and no sensory deficits noted SENSORIUM/ORIENTATION: Yes alert MENINGEAL SIGNS: Yes no meningeal signs Skin: COMMON NORMALS: no rashes or lesions noted GENERAL SKIN EXAM: no rashes or lesions noted Course Vital Signs: Vital signs: Vital Signs Temperature 98.1 F 07/30/25 15:02 Pulse Rate 102 H 07/30/25 15:02 Respiratory Rate 18 07/30/25 15:02 Blood Pressure 155/94 07/30/25 15:02 Pulse Oximetry 100 07/30/25 15:02 Oxygen Delivery Me thod Room Air 07/30/25 15:02 MDM - Extremity (Nontraumatic) Medical Decision Making This patient presented for right shoulder pain status post fall that occurred couple of days ago. She had pain primarily with range of motion there was no significant point tenderness to palpation on exam, most notably of the shoulder testing was weakness and pain with subscapularis isolation with the liftoff testing, though ultimately nondiagnostic and x-ray does not reveal any acute pathology. They commented on possible tiny avulsion fracture though I suspect this is artifact as she has no point tenderness over the area of concern. She needs to follow-up with orthopedics who I will refer her to, a sling is provided only for comfort and I encouraged minimal range of motion as tolerated, and she will follow-up as necessary. Toradol IM given here in the ED. Lab Data Radiology Impressions Shoulder X-Ray 07/30/25 14:54 IMPRESSION: 1. Tiny avulsion fracture versus calcific tendinitis or artifact over the RIGHT greater tuberosity. 2. No shoulder dislocation. All radiology interpretation(s) finalized by discharge Discharge Plan Discharge Patient Disposition: Home Clinical Impression: Sprain of right shoulder Condition: Stable Prescriptions: No Action trazodone 150 mg tablet 150 mg PO DAILY Qty: 90 1RF topiramate 50 mg tablet 50 mg PO DAILY Qty: 90 1RF (DME) pen needles See Rx Instructions .Route .MEDSUPPLY Qty: 100 5RF Rx Instructions: As directed oxycodone-acetaminophen [Percocet] 5-325 mg tablet 1 tab PO Q6H PRN (Reason: pain) 3 Days Qty: 14 0RF cephalexin 500 mg capsule 500 mg PO Q8H Qty: 30 0RF losartan 25 mg tablet See Rx Instructions .ROUTE .COMPLEX Qty: 30 0RF Dose Instruction: TAKE 1 TABLET BY MOUTH EVERY DAY Rx Instructions: TAKE 1 TABLET BY MOUTH EVERY DAY hydrochlorothiazide 25 mg tablet See Rx Instructions .ROUTE .COMPLEX Qty: 30 0RF Dose Instruction: TAKE 1 TABLET BY MOUTH EVERY MORNING Rx Instructions: TAKE 1 TABLET BY MOUTH EVERY MORNING Discharge Orders: Discharge ED (Routine); Ordered 07/30/25 Ordered By: Gavin Cassidy Referrals: Denise Baxter DO [Primary Care Provider, Family Practice] Patient Instructions: Patient Portal & Adela Instructions Activity Restrictions/Additional Instructions: Shoulder Pain Discharge Instructions You were seen today for right shoulder pain. Your X-rays did not show a fracture, but there is concern for an injury to the rotator cuff (the muscles and tendons that help move your shoulder). You will need further evaluation by an credit collection specialist and likely an MRI scan to better understand what is causing your pain. Pain Management - Take acetaminophen (Tylenol) or ibuprofen (Advil, Motrin) as needed for pain. - Use ice packs on your shoulder for 15-20 minutes at a time, several times per day, to help reduce pain and swelling. - Avoid activities that make your pain worse. Sling Use - You have been given a sling to wear for comfort only. - You may remove the sling whenever you feel comfortable doing so. - Do not keep your shoulder completely still. It is important to move your shoulder gently to prevent stiffness. - You should remove the sling several times per day to gently move your shoulder through its range of motion. Activity Guidelines - Avoid heavy lifting, pushing, or pulling with your right arm. - Avoid overhead activities until you see the credit collection specialist. - You may use your arm for light daily activities as tolerated, such as eating, writing, or using a computer. - Gentle movement is encouraged to prevent your shoulder from becoming stiff. Follow-Up Care - You must follow up with an credit collection specialist for further evaluation. - The orthopedic doctor will likely order an MRI scan to look at the soft tissues in your shoulder, including the rotator cuff. - Most rotator cuff problems can be treated without surgery using physical therapy and other conservative treatments. - Physical therapy will focus on restoring your shoulder's range of motion and strength. When to Seek Immediate Care Return to the emergency department or call 911 if you experience: - Sudden worsening of pain - Numbness or tingling in your arm or hand - Weakness in your arm that gets worse - Fever or signs of infection - Inability to move your arm at all Important Reminders - Keep all follow-up appointments with the credit collection specialist. - Many people with rotator cuff injuries improve with physical therapy and do not need surgery. - Recovery may take several weeks to months, so be patient with the healing process. Print Language: Qatari Coding Level of Care Code ED Ore Crushing Dust Collector for Tessa Gill
== END 2025-07-30 16:10 | disposition home or self-care (01) ==
PROVIDERS: Emergency Provider Physician Assistant; PCP Family Medicine
DX: S43.401A Unspecified sprain of right shoulder joint, initial encounter (principal); W01.0XXA Fall on same level from slipping, tripping and stumbling without subsequent striking against object, initial encounter
CPT/HCPCS: 73030; 96372; 99284; J1885

== ENCOUNTER → 2025-08-01 10:16 | Outpatient (BNVA) | payer BC, SELFPAY | PROVIDERS: PCP Family Medicine; Visit Provider Physician Assistant | DX: S43.401A Unspecified sprain of right shoulder joint, initial encounter (principal); W19.XXXA Unspecified fall, initial encounter | CPT/HCPCS: 73030 ==

== ENCOUNTER 2025-08-01 11:44 | Outpatient (CLI) | payer BC, SELFPAY | END 2025-08-01 11:45 | disposition home or self-care (01) | LOC: SPT 11:45 | PROVIDERS: PCP Family Medicine; Visit Provider Physician Assistant | DX: Z46.89 Encounter for fitting and adjustment of other specified devices (principal); S43.401D Unspecified sprain of right shoulder joint, subsequent encounter; X58.XXXD Exposure to other specified factors, subsequent encounter | CPT/HCPCS: A4565 ==

== ENCOUNTER 2025-08-14 14:00 | Outpatient (CLI) | payer BC, SELFPAY ==
--- NOTE | 2025-08-14 14:30 | CT_ITS ---
WS: [id number] CT RIGHT SHOULDER, NONCONTRAST HISTORY: rule out fracture of right shoulder Technique: All CT scans at [facility] use at least one of these dose optimization techniques: automated exposure control; mA and/or kV adjustment per patient size (includes targeted exams where dose is matched to clinical indication); or iterative reconstruction. DLP: 345.72 mGy.cm COMPARISON: Radiograph 08/01/2025 There is a very tiny focus of increased density over the lateral humeral head. This density measures 2.5 mm. This is in a typical location for calcific tendinitis involving the rotator cuff tendon but avulsion fracture cannot be excluded. Seen best on the coronal reformatted imaging is a very slight change in contour of the posterior lateral humeral head. Refer to images 28 and 31 of series 13. The visualized cervical spine and ribs are normal. Benign granuloma RIGHT lower lobe. CT/CT shoulder RT wo con* [id number] IMPRESSION: 1. Tiny focus of increased density over the lateral humeral head. Tiny avulsio n fracture versus calcific tendinitis. 2. Seen best on the coronal reformatted imaging is a very slight change in con tour of the posterior lateral humeral head. Suspect there is likely a minimal f racture involving the humeral head cortex.
== END 2025-08-14 14:01 | disposition home or self-care (01) ==
LOC: RAD 14:01
PROVIDERS: PCP Nurse Practitioner Family; Visit Provider Physician Assistant
DX: S43.401A Unspecified sprain of right shoulder joint, initial encounter (principal); X58.XXXA Exposure to other specified factors, initial encounter
CPT/HCPCS: 73200